=== PATIENT | female | born 1950 | race Caucasian/White ===

== ENCOUNTER 2019-08-10 09:10 | Observation (INO) | payer MEDICARE, OTHER ==
[2019-08-10 09:42] LABS: #Basophils 0.1 thou/uL (0.0-0.2); #Eosinphils 0.1 thou/uL (0.0-0.7); #Lymphocytes 2.3 thou/uL (1.20-3.40); #Monocytes 0.9 thou/uL (0.11-0.59); %Basophils 0.3 % (0.0-1.0); %Eosinophils 0.9 % (0.0-10.0); %Lymphocytes 15.1 % (21.0-51.0); %Neutrophils 77.7 % (42.0-75.0); Hemoglobin 14.6 g/dL (12.0-16.0); Mean Corpuscular HGB CONC 32.4 g/dL (32.0-36.0); Mean Corpuscular Volume 89.3 fL (78.0-98.0); Mean Platelet Volume 7.5 fL (7.4-10.4); Platelet Count 321 thou/uL (130-400); Red Blood Cell (RBC) Count 5.04 mill/uL (4.20-5.40); White Blood Cell (WBC) Count 15.4 thou/uL (4.8-10.8)
[2019-08-10 09:47] LABS: INR-International Normal Ratio 0.9; Prothrombin Time 12.6 SEC (12.0-14.7)
[2019-08-10 09:53] LABS: ALT (SGPT) 22 U/L (8-55); AST (SGOT) 22 U/L (5-34); Albumin 4.1 g/dL (3.4-4.8); Alkaline Phosphatase 79 U/L (40-110); Anion Gap 15 mmol/L (10-20); BUN (Urea Nitrogen) 15 mg/dL (9.8-20.1); Bilirubin, Total 1.4 mg/dL (0.2-1.2); CK (CPK) 84 U/L (29-168); Calc. Creatinine Clearance 0 mL/min (70-130); Calcium 9.3 mg/dL (7.8-10.44); Carbon Dioxide 23 mmol/L (23-31); Chloride 106 mmol/L (98-107); Estimated GFR-MDRD 73; Globulin 3.1 g/dL (2.4-3.5); Glucose 172 mg/dL (80-115); PTT 22.4 SEC (22.9-36.1); Potassium 3.7 mmol/L (3.5-5.1); Protein, Total 7.2 g/dL (6.0-8.3); Sodium 140 mmol/L (136-145)
--- NOTE | 2019-08-10 10:11 | RAD ---
EXAM: Single view of the chest HISTORY: Altered mental status COMPARISON: 03/29/2017 FINDINGS: Single view of the chest shows a normal sized cardiomediastinal silhouette. There is no aviva dence of consolidation, mass, or pleural effusion. Degenerative changes are seen in the spine and shoulders. IMPRESSION: No evidence of acute cardiopulmonary disease
--- NOTE | 2019-08-10 10:12 | CT ---
CT BRAIN WITHOUT CONTRAST: HISTORY: Level II stroke alert. Right sided weakness which has resolved. COMPARISON: 03/29/2017 FINDINGS: Changes of cortical atrophy, chronic small vessel ischemic disease, encephalomalacia/old infarction i n the left posterior parietal lobe are again seen. The ventricular size is stable and the basilar cis terns are patent. No evidence of acute infarct, hemorrhage, midline shift or abnormal extraaxial fluid collection is se en. The bony calvarium is intact. The visualized paranasal sinuses and mastoid air cells are well aer ated. IMPRESSION: No CT evidence of acute intracranial process. Discussed over the telephone with ER physician Dr. Chaz Tafoya at 9:36 a.m. CODE [place] POS: [facility]
--- NOTE | 2019-08-10 10:15 | CT ---
Exam: CTA neck with contrast CTA head with contrast HISTORY: Stroke that is subsequently resolved with right-sided weakness COMPARISON: None TECHNIQUE: 1. Multiple contiguous axial images were obtained and a CTA of the neck with contrast. 3-D sagittal a nd coronal MIP reformats were performed. 2. Multiple contiguous axial images were obtained and a CTA of the head with contrast. 3-D sagittal a nd coronal MIP reformats were performed. FINDINGS: CTA NECK: Aortic arch: Normal origin of the carotid arteries from the arch. No significant atherosclerotic dise ase of the subclavian arteries. Right common carotid artery: No significant atherosclerotic disease or narrowing Left common carotid artery: No significant atherosclerotic disease or narrowing Right internal carotid artery: No significant atherosclerotic disease or narrowing per NASCET criteri a. Tortuous cervical ICA. Right external carotid artery: No significant atherosclerotic disease or narrowing Left internal carotid artery: No significant atherosclerotic disease or narrowing per NASCET criteri a Left external carotid artery: No significant atherosclerotic disease or narrowing Right cervical vertebral artery: No significant atherosclerotic disease or narrowing Left cervical vertebral artery: No significant atherosclerotic disease or narrowing No cervical adenopathy. The lung apices are unremarkable. Degenerative changes are seen in the spine. CTA HEAD: Right intracranial internal carotid artery: Patent without narrowing or occlusion Right anterior cerebral artery: Patent without narrowing or occlusion Right middle cerebral artery: Patent without narrowing or occlusion Left intracranial internal carotid artery: Patent without narrowing or occlusion Left anterior cerebral artery: Patent without narrowing or occlusion Left middle cerebral artery: Patent without narrowing or occlusion No aneurysmal dilatation is seen in the anterior circulation. Right vertebral artery: Patent without narrowing or occlusion Left vertebral artery: Patent without narrowing or occlusion Basilar artery: Patent without narrowing or occlusion The posterior cerebral arteries and cerebellar arteries are patent without narrowing or occlusion. No aneurysmal dilatation is seen in the posterior circulation. IMPRESSION: 1. No significant CTA abnormality of the neck 2. No significant CTA abnormality of the head
[2019-08-10] MEDS ORDERED: Iopamidol-370 76% 500 ML 1 ML ONE (11:42)
[2019-08-10 12:35] LABS: Bilirubin Negative (Negative); Blood, Urine Negative (Negative); Clarity Clear (Clear); Glucose, Urine (Dipstick) 500 mg/dL (Negative); Leukocyte Negative Leu/uL (Negative); Nitrite Negative (Negative); Protein, Urine (Dipstick) Negative (Neg-Trace)
[2019-08-10 13:45] VITALS: BMI 30.5
[2019-08-10] MEDS ORDERED: Dextrose 5% in Water 1,000 ML IV PRN (15:42)
[2019-08-10] MEDS ORDERED: Dextrose 50% Abboject 50 ML SYRINGE SLOW IVP PRN (15:42)
[2019-08-10] MEDS ORDERED: Clotrimazole 1 % Cream 30 GM TUBE TOP PRN (15:57)
[2019-08-10] MEDS: HumaLOG 300 UNITS/3 ML VIAL SC SCH (20:53)
[2019-08-10] MEDS: Atorvastatin Calcium 40 MG TAB PO SCH (20:53)
[2019-08-10] MEDS ORDERED: Insulin Glargine 5 UNITS in Pre-Filled Syringe 1 EACH SC SCH (21:00)
--- NOTE | 2019-08-10 22:56 | HP ---
CHIEF COMPLAINT: Confusion and slurred speech with some weakness of the right side. HISTORY OF PRESENT ILLNESS: The patient is a 69-year-old female, who was brought to the emergency room for evaluation after she had an episode of confusion, slurred speech, and unable to lift her left arm. Apparently, her speech was incoherent last night and this morning she was worse. Family decided to bring her to the emergency room for further evaluation. Apparently, she had a stroke two years ago and she was hospitalized in this hospital. She did not have any other complaints. No chest pain. No shortness of breath. She did not have any headache. PAST MEDICAL HISTORY: Positive for; 1. Diabetes mellitus, type 2. 2. Gastroesophageal reflux disease. 3. Hyperlipidemia. 4. Hypertension. 5. History of CVA. 6. Asthma/chronic obstructive pulmonary disease. SURGICAL HISTORY: 1. Tubal ligation. 2. Cholecystectomy. 3. Staphylococcus infection of the left buttock. PSYCHIATRIC HISTORY: 1. Anxiety. 2. Depression. 3. Seizure disorder. SOCIAL HISTORY: She denies any alcohol intake, cigarette smoking, or illicit drug use. FAMILY HISTORY: Unknown. Does not know much about grandparents. ALLERGIES: ASPIRIN AND PENICILLIN. CURRENT MEDICATIONS: Patient's family went home to get medicine. REVIEW OF SYSTEMS: Positive for bilateral knee pain. Negative for all symptoms and all 14 systems reviewed with the family. PHYSICAL EXAMINATION: GENERAL: She is not in any distress during my visit. VITAL SIGNS: Her blood pressure is 157/85, pulse is 80, temperature is 99.4, respirations 18, and O2 saturation is 98%. HEENT: Head is atraumatic and normocephalic. Eyes are PERRLA. Sclerae are nonicteric. Oral mucosa is moist. NECK: Supple. LUNGS: Clear. HEART: S1, S2 normal. There is a systolic murmur mostly audible over the left sternal border, 3/6. ABDOMEN: Soft, nontender, and nondistended. Bowel sounds are present. No organomegaly. EXTREMITIES: No clubbing, cyanosis, or edema. NEUROLOGICAL EXAMINATION: She follows my commands. She moves all 4 extremities. Her speech is normal. She does not have any facial droop. She knows that she is in the hospital, but that is all she knows. She is not oriented to anything else. LABORATORY DATA: White count of 15.4, hemoglobin 14.6, hematocrit 45.0, and platelet count is 321,000. Chemistry showed normal electrolytes, normal BUN, normal creatinine, elevated glucose at 172, calcium 9.3, and total bilirubin 1.3. The rest of chemistry within normal limits. Troponin I less than 0.010. Urinalysis showed specific gravity of 1.054, 500 of glucose, and 2.0 of urobilinogen. Normal PT and INR. APTT 22.4, which is low. IMAGES: Personally reviewed by me. Chest x-ray did not show any acute abnormalities. The CT of the brain showed chronic microvascular changes along with encephalomalacia/old infarction in the left posteroparietal lobe. CT angiogram of the [place] showed no significant CTA abnormality of the neck and no significant CTA abnormality of the head. This was personally reviewed by me too. Electrocardiogram showed normal sinus rhythm with voltage criteria for LVH and some flipped T-waves in V4, V5, and V6 along with some V3 flipped T-waves. IMPRESSION: 1. Transient ischemic attack, most slightly. The patient is back to her baseline. Her speech and motor function are back to her baseline. 2. Diabetes mellitus, not controlled. 3. Hypertension. 4. Seizure disorder. 5. Chronic obstructive pulmonary disease/asthma. 6. History of methicillin-resistant Staphylococcus aureus bacteremia. 7. Anxiety and depression. 8. Dementia. 9. Gastroesophageal reflux disease. PLAN: Admission for observation. Condition is fair. Full code. Activity, bedrest, and bathroom privileges with assistance. IV Hep-Lock. Plavix 75 mg once a day. DVT prophylaxis with SCDs. Echocardiogram and Accu-Cheks a.c. and at bedtime and mild sliding scale. We will identify her home medications. We will reconcile as soon as this is available. We will get PT and OT involved and apparently family is asking for evaluation of her status and possible placement at the halfway since they are not able to care for her any longer. Job ID: [id number]
[2019-08-11 05:10] LABS: #Basophils 0.1 thou/uL (0.0-0.2); #Eosinphils 0.2 thou/uL (0.0-0.7); #Lymphocytes 4.4 thou/uL (1.20-3.40); #Neutrophils 7.6 thou/uL (1.40-6.50); %Basophils 0.8 % (0.0-1.0); %Eosinophils 1.6 % (0.0-10.0); %Lymphocytes 33.3 % (21.0-51.0); %Monocytes 7.4 % (0.0-10.0); %Neutrophils 56.9 % (42.0-75.0); Mean Corpuscular HGB CONC 33.3 g/dL (32.0-36.0); Mean Corpuscular Hemoglobin 29.4 pg (27.0-31.0); Mean Corpuscular Volume 88.4 fL (78.0-98.0); Mean Platelet Volume 8.1 fL (7.4-10.4); Platelet Count 314 thou/uL (130-400); RBC Distribution Width 11.9 % (11.5-14.5); Red Blood Cell (RBC) Count 4.77 mill/uL (4.20-5.40); White Blood Cell (WBC) Count 13.3 thou/uL (4.8-10.8)
[2019-08-11 05:21] LABS: Anion Gap 14 mmol/L (10-20); BUN (Urea Nitrogen) 13 mg/dL (9.8-20.1); Calc. Creatinine Clearance 75 mL/min (70-130); Calcium 9.6 mg/dL (7.8-10.44); Carbon Dioxide 24 mmol/L (23-31); Chloride 104 mmol/L (98-107); Estimated GFR-MDRD 73; Glucose 296 mg/dL (80-115); Potassium 3.8 mmol/L (3.5-5.1); Sodium 138 mmol/L (136-145)
[2019-08-11] MEDS: HumaLOG 300 UNITS/3 ML VIAL SC PRN ×3 (06:27→18:14)
[2019-08-11] MEDS: Clopidogrel Bisulfate 75 MG TAB PO SCH (08:52)
[2019-08-11] MEDS: Insulin Glargine 10 UNITS in Pre-Filled Syringe 1 EACH SC SCH (08:53)
[2019-08-11] MEDS: HumaLOG 300 UNITS/3 ML VIAL SC SCH ×2 (08:53→20:27)
[2019-08-11] MEDS ORDERED: Non-Formulary Item 1 EACH (Insulin Glargine,Hum.Rec.Anlog [Toujeo Solostar] 10 UNIT) SQ SCH (09:00)
--- NOTE | 2019-08-11 10:57 | PRG ---
DATE OF SERVICE: 08/11/2019 SUBJECTIVE: The patient is seen and examined at bedside. The family is present in the room during my visit. She is doing significantly better. She is very talkative this morning. She starts joking around. OBJECTIVE: VITAL SIGNS: Blood pressure is 145/63, pulse is 85, temperature is 98.8, respiratory rate is 12, and O2 saturation is 96% on room air. HEENT: Her pupils are reactive to light properly. Sclerae are nonicteric. Oral mucosa is moist. NECK: Supple. LUNGS: Clear. HEART: S1 and S2 normal. There is a systolic murmur 3/6 at the sternal border. ABDOMEN: Soft, obese, and nontender. EXTREMITIES: No clubbing, cyanosis, or edema. NEUROLOGIC: She follows my commands. She moves all 4 extremities. There is no any speech problem. LABORATORY DATA: Labs showed white count of 13.3, hemoglobin of 14.0, hematocrit 42.2, and platelet count is 314. Glycemia is ranging from 167 to 322. Urinalysis showed specific gravity of 1.054, 500 of glucose, and 2 of urobilinogen. Echocardiogram showed LVEF estimated at 55% to 60%, normal right ventricle, normal left and right atrium. No evidence of mitral valve stenosis. No evidence of any pericardial infusion. IMPRESSION: 1. Transient ischemic attack, resolved. The patient is back to her normal functional status. She does not have any speech disturbance or focal deficits. We will continue Plavix. We will continue PT. We will continue statin. 2. Diabetes mellitus, not controlled. We will increase the intensity of our management. Continue before meals and at bedtime Accu-Cheks. 3. Hypertension. 4. Seizure disorder, chronic, nonactive. 5. Chronic obstructive pulmonary disease/asthma. 6. History of methicillin-resistant Staphylococcus aureus bacteremia. 7. Anxiety and depression. 8. Dementia. 9. Gastroesophageal reflux disease. PLAN: Plan is to continue her Plavix 75 mg once a day. Continue statin. Her echocardiogram came back within normal limits. She does not have any blockages in her carotid system. We will continue PT and OT and try to place her since the family is not able to care for her at home anymore. Job ID: [id number]
[2019-08-11] MEDS: metFORMIN 500 MG TAB PO SCH (18:14)
[2019-08-11] MEDS: Atorvastatin Calcium 40 MG TAB PO SCH (20:27)
[2019-08-12] MEDS: HumaLOG 300 UNITS/3 ML VIAL SC PRN ×3 (06:30→17:35)
[2019-08-12] MEDS: Clopidogrel Bisulfate 75 MG TAB PO SCH (09:05)
[2019-08-12] MEDS: metFORMIN 500 MG TAB PO SCH ×2 (09:05→17:28)
[2019-08-12] MEDS: HumaLOG 300 UNITS/3 ML VIAL SC SCH ×2 (09:05→20:02)
[2019-08-12] MEDS: Insulin Glargine 10 UNITS in Pre-Filled Syringe 1 EACH SC SCH (09:07)
--- NOTE | 2019-08-12 11:30 | PRG ---
DATE OF SERVICE: 08/12/2019 SUBJECTIVE: The patient is seen and examined at the bedside. She does not have much complaints to offer. She is able to eat, but she does not like the food in the hospital. Her speech seems to be back to normal. OBJECTIVE: VITAL SIGNS: Blood pressure is 130/60, pulse is 76, respiratory rate is 20, O2 saturation is 94% on room air, temperature is 98.6. HEENT: Her pupils are responding to light properly. Sclerae are nonicteric. Oral mucosa is moist. NECK: Supple. LUNGS: Clear. HEART: S1 and S2, normal. No S3. No S4. ABDOMEN: Soft, nontender, nondistended. EXTREMITIES: No clubbing, cyanosis, or edema. NEUROLOGIC: She follows my commands. She has some dementia. She moves all her extremities. LABORATORY DATA: Glycemia is ranging from 166 to 288. IMPRESSION: 1. Transient ischemic attack, resolved. According to the family, she is back to her baseline. We will continue her Plavix since she is allergic to aspirin. We will continue PT and OT and we will continue statin. 2. Diabetes mellitus. The patient was started on her metformin yesterday, so I anticipate to see improvement in her glycemic control. 3. Hypertension. 4. Seizure disorder, chronic, nonactive. 5. Chronic obstructive pulmonary disease/asthma, chronic, nonactive. 6. History of methicillin-resistant Staphylococcus aureus bacteremia. 7. Anxiety and depression. 8. Dementia. 9. Gastroesophageal reflux disease. DISCUSSION: The plan is to continue her Plavix and statin. She will be screen for care home facility for PT and OT on Tuesday and the family is not able to take care of her at home and she will be placed. Job ID: [id number]
[2019-08-12] MEDS: Acetaminophen 325 MG TAB PO PRN (20:01)
[2019-08-12] MEDS: Atorvastatin Calcium 40 MG TAB PO SCH (20:01)
[2019-08-13] MEDS: HumaLOG 300 UNITS/3 ML VIAL SC PRN ×3 (06:10→17:19)
[2019-08-13] MEDS: HumaLOG 300 UNITS/3 ML VIAL SC SCH ×2 (08:51→20:31)
[2019-08-13] MEDS: metFORMIN 500 MG TAB PO SCH ×2 (08:51→17:20)
[2019-08-13] MEDS: Clopidogrel Bisulfate 75 MG TAB PO SCH (08:51)
[2019-08-13] MEDS: Insulin Glargine 10 UNITS in Pre-Filled Syringe 1 EACH SC SCH (08:51)
[2019-08-13 09:41] LABS: Hemoglobin A1c 8.3 % (4.0-6.0)
[2019-08-13 09:50] LABS: Anion Gap 16 mmol/L (10-20); BUN (Urea Nitrogen) 19 mg/dL (9.8-20.1); Calc. Creatinine Clearance 66 mL/min (70-130); Calcium 9.3 mg/dL (7.8-10.44); Carbon Dioxide 18 mmol/L (23-31); Chloride 104 mmol/L (98-107); Estimated GFR-MDRD 62; Glucose 370 mg/dL (80-115); Potassium 4.3 mmol/L (3.5-5.1); Sodium 134 mmol/L (136-145)
--- NOTE | 2019-08-13 16:59 | PDOC.HOSPP ---
- Subjective Encounter Date: 08/13/19 Encounter Time: 10:57 Subjective: 69 y/o female with dementia, seizure disorder, prior CVa, DM, COPD and HTN amongst others admitted with acute onset of confusion and slurred associated with upper arm weakness which soon resolved and patient is back to baseline. Patient want patient placed in an jail as they are unable to care for her. Awaiting insurance approval. - Objective Vital Signs & Weight: Vital Signs (12 hours) Temp Pulse Pulse Pulse Resp BP BP 08/13/19 15:36 98.6 F 76 17 08/13/19 13:45 87 87 155/88 H 128/70 08/13/19 11:49 98.7 F 80 16 08/13/19 09:57 87 88 126/75 141/77 H 08/13/19 07:45 98.9 F 93 17 BP Pulse Ox 08/13/19 15:36 130/70 94 L 08/13/19 13:45 08/13/19 11:49 132/77 96 08/13/19 09:57 08/13/19 07:45 128/76 95 Weight Weight 151 lb 4 oz I&O: 08/12/19 08/13/19 08/14/19 06:59 06:59 06:59 Intake Total 900 1200 Balance 900 1200 Result Diagrams: 08/11/19 04:40 08/13/19 09:06 Additional Labs: Accuchecks 08/13/19 08/13/19 08/12/19 10:40 05:56 19:28 POC Glucose 219 H 319 H 214 H 08/12/19 17:33 POC Glucose 259 H Hospitalist ROS - Medication Medications: Active Medications Generic Name Dose Route Start Last Admin Trade Name Freq PRN Reason Stop Dose Admin Acetaminophen 650 mg 08/10/19 15:38 08/12/19 20:01 Tylenol PO 650 mg Q4H PRN Administration Headache/Fever/Mild Pain (1-3) Atorvastatin Calcium 40 mg 08/10/19 21:00 08/12/19 20:01 Lipitor PO 40 mg HS ELOISE Administration Clopidogrel Bisulfate 75 mg 08/11/19 09:00 08/13/19 08:51 Plavix PO 75 mg DAILY ELOISE Administration Insulin Glargine 10 units/ 0.1 mls @ 0 mls/hr 08/11/19 09:00 08/13/19 08:51 Miscellaneous Medication SC 0.1 mls DAILY ELOISE Administration As Directed Insulin Human Lispro 0 units 08/10/19 15:42 08/13/19 11:04 Humalog SC 3 unit .MILD SLIDING SCALE PRN Administration Mild Correctional Scale Insulin Human Lispro 5 units 08/10/19 21:00 08/13/19 08:51 Humalog SC 5 unit BID ELOISE Administration Metformin HCl 500 mg 08/11/19 17:00 08/13/19 08:51 Glucophage PO 500 mg BID-WM ELOISE Administration - Exam General Appearance: awake alert Eye: anicteric sclera ENT: normocephalic atraumatic Neck: symmetric, no JVD Heart: RRR Respiratory: no wheezes, no ronchi, normal chest expansion Gastrointestinal: soft, non-tender, non-distended, normal bowel sounds Extremities: 1+ LE edema Neurological: cranial nerve grossly intact, no new deficit Musculoskeletal: generalized weakness Psychiatric: normal affect, A&O x 3 Hosp A/P (1) TIA (transient ischemic attack) Status: Suspected (2) HTN (hypertension) Code(s): I10 - ESSENTIAL (PRIMARY) HYPERTENSION Status: Acute (3) GERD (gastroesophageal reflux disease) Code(s): K21.9 - GASTRO-ESOPHAGEAL REFLUX DISEASE WITHOUT ESOPHAGITIS Status: Acute (4) COPD (chronic obstructive pulmonary disease) Status: Acute (5) Dementia Code(s): F03.90 - UNSPECIFIED DEMENTIA WITHOUT BEHAVIORAL DISTURBANCE Status: Acute (6) Diabetes mellitus type 2 Code(s): E11.9 - TYPE 2 DIABETES MELLITUS WITHOUT COMPLICATIONS Status: Chronic (7) Seizure disorder Code(s): G40.909 - EPILEPSY, UNSP, NOT INTRACTABLE, WITHOUT STATUS EPILEPTICUS Status: Chronic (8) Physical deconditioning Code(s): R53.81 - OTHER MALAISE Status: Acute (9) Metabolic acidosis Code(s): E87.2 - ACIDOSIS Status: Acute (10) Hyponatremia Code(s): E87.1 - HYPO-OSMOLALITY AND HYPONATREMIA Status: Acute - Plan Increase lantus to 20 units daily PT/OT to continue Continue statin and plavix. get repeat CBC and BMP in the am.
[2019-08-13] MEDS: Acetaminophen 325 MG TAB PO PRN (17:19)
[2019-08-13] MEDS: Atorvastatin Calcium 40 MG TAB PO SCH (20:30)
[2019-08-14 05:16] LABS: #Eosinphils 0.3 thou/uL (0.0-0.7); #Lymphocytes 3.6 thou/uL (1.20-3.40); #Neutrophils 9.5 thou/uL (1.40-6.50); %Basophils 0.3 % (0.0-1.0); %Eosinophils 2.1 % (0.0-10.0); %Lymphocytes 25.2 % (21.0-51.0); %Monocytes 7.2 % (0.0-10.0); %Neutrophils 65.3 % (42.0-75.0); Hemoglobin 15.1 g/dL (12.0-16.0); Mean Corpuscular HGB CONC 32.6 g/dL (32.0-36.0); Mean Corpuscular Hemoglobin 29.4 pg (27.0-31.0); Mean Corpuscular Volume 90.2 fL (78.0-98.0); Mean Platelet Volume 7.8 fL (7.4-10.4); Platelet Count 327 thou/uL (130-400); RBC Distribution Width 12.2 % (11.5-14.5); Red Blood Cell (RBC) Count 5.11 mill/uL (4.20-5.40); White Blood Cell (WBC) Count 14.5 thou/uL (4.8-10.8)
[2019-08-14 05:40] LABS: Albumin 3.6 g/dL (3.4-4.8); Anion Gap 13 mmol/L (10-20); BUN (Urea Nitrogen) 23 mg/dL (9.8-20.1); Calc. Creatinine Clearance 73 mL/min (70-130); Calcium 9.3 mg/dL (7.8-10.44); Carbon Dioxide 25 mmol/L (23-31); Chloride 104 mmol/L (98-107); Estimated GFR-MDRD 71; Glucose 221 mg/dL (80-115); Phosphorus 4.1 mg/dL (2.3-4.7); Potassium 4.1 mmol/L (3.5-5.1); Sodium 138 mmol/L (136-145)
[2019-08-14] MEDS: HumaLOG 300 UNITS/3 ML VIAL SC PRN ×3 (06:07→17:25)
[2019-08-14] MEDS: Clopidogrel Bisulfate 75 MG TAB PO SCH (08:28)
[2019-08-14] MEDS: metFORMIN 500 MG TAB PO SCH ×2 (08:29→16:34)
[2019-08-14] MEDS: Acetaminophen 325 MG TAB PO PRN (08:30)
[2019-08-14] MEDS: HumaLOG 300 UNITS/3 ML VIAL SC SCH ×2 (08:31→20:29)
[2019-08-14] MEDS: Insulin Glargine 20 UNITS in Pre-Filled Syringe 1 EACH SC SCH (08:32)
--- NOTE | 2019-08-14 11:29 | PDOC.HOSPP ---
- Subjective non-verbal Subjective: feeling well, she has no complaints, she knows that she is in the hospital but does not know the year. - Objective Vital Signs & Weight: Vital Signs (12 hours) Temp Pulse Resp BP Pulse Ox 08/14/19 07:29 99.6 F 81 20 129/70 93 L 08/14/19 04:00 99.1 F 89 22 H 128/62 94 L 08/14/19 00:00 99.6 F 102 H 15 142/65 H 94 L Weight Weight 151 lb 4 oz I&O: 08/13/19 08/14/19 08/15/19 06:59 06:59 06:59 Intake Total 1200 1360 Output Total 750 Balance 1200 610 Result Diagrams: 08/14/19 04:58 08/14/19 04:58 Additional Labs: Accuchecks 08/14/19 08/14/19 08/13/19 10:34 05:43 20:33 POC Glucose 256 H 213 H 259 H 08/13/19 16:35 POC Glucose 186 H Hospitalist ROS - Medication Medications: Active Medications Generic Name Dose Route Start Last Admin Trade Name Freq PRN Reason Stop Dose Admin Acetaminophen 650 mg 08/10/19 15:38 08/14/19 08:30 Tylenol PO 650 mg Q4H PRN Administration Headache/Fever/Mild Pain (1-3) Atorvastatin Calcium 40 mg 08/10/19 21:00 08/13/19 20:30 Lipitor PO 40 mg HS ELOISE Administration Clopidogrel Bisulfate 75 mg 08/11/19 09:00 08/14/19 08:28 Plavix PO 75 mg DAILY ELOISE Administration Insulin Glargine 20 units/ 0.2 mls @ 0 mls/hr 08/13/19 17:05 08/14/19 08:32 Miscellaneous Medication SC 0.2 mls DAILY ELOISE Administration As Directed Insulin Human Lispro 0 units 08/10/19 15:42 08/14/19 11:12 Humalog SC 4 unit .MILD SLIDING SCALE PRN Administration Mild Correctional Scale Insulin Human Lispro 5 units 08/10/19 21:00 08/14/19 08:31 Humalog SC 5 unit BID ELOISE Administration Metformin HCl 500 mg 08/11/19 17:00 08/14/19 08:29 Glucophage PO 500 mg BID-WM ELOISE Administration - Exam General Appearance: awake alert Eye: PERRL ENT: normocephalic atraumatic Respiratory: no wheezes, no rales Gastrointestinal: non-tender, non-distended, normal bowel sounds, no palpable masses Extremities: no cyanosis, no clubbing Neurological: cranial nerve grossly intact Musculoskeletal: normal tone Psychiatric: normal affect Hosp A/P - Plan (1) TIA (transient ischemic attack) Status: Suspected (2) HTN (hypertension) Code(s): I10 - ESSENTIAL (PRIMARY) HYPERTENSION Status: Acute (3) GERD (gastroesophageal reflux disease) Code(s): K21.9 - GASTRO-ESOPHAGEAL REFLUX DISEASE WITHOUT ESOPHAGITIS Status: Acute (4) COPD (chronic obstructive pulmonary disease) Status: Acute (5) Dementia Code(s): F03.90 - UNSPECIFIED DEMENTIA WITHOUT BEHAVIORAL DISTURBANCE Status: Acute (6) Diabetes mellitus type 2 Code(s): E11.9 - TYPE 2 DIABETES MELLITUS WITHOUT COMPLICATIONS Status: Chronic (7) Seizure disorder Code(s): G40.909 - EPILEPSY, UNSP, NOT INTRACTABLE, WITHOUT STATUS EPILEPTICUS Status: Chronic (8) Physical deconditioning Code(s): R53.81 - OTHER MALAISE Status: Acute (9) Metabolic acidosis Code(s): E87.2 - ACIDOSIS Status: Acute (10) Hyponatremia Code(s): E87.1 - HYPO-OSMOLALITY AND HYPONATREMIA Status: Acute - Plan 08/13 Increase lantus to 20 units daily PT/OT to continue Continue statin and plavix. get repeat CBC and BMP in the am. plan for 08/14 doing well, wbc elevated but no evidence of infection. will continue same management.
[2019-08-14] MEDS: Atorvastatin Calcium 40 MG TAB PO SCH (20:28)
[2019-08-15] MEDS: HumaLOG 300 UNITS/3 ML VIAL SC PRN ×2 (06:29→11:36)
[2019-08-15] MEDS: Insulin Glargine 20 UNITS in Pre-Filled Syringe 1 EACH SC SCH (09:19)
[2019-08-15] MEDS: metFORMIN 500 MG TAB PO SCH ×2 (09:19→17:07)
[2019-08-15] MEDS: HumaLOG 300 UNITS/3 ML VIAL SC SCH (09:19)
[2019-08-15] MEDS: Clopidogrel Bisulfate 75 MG TAB PO SCH (09:20)
--- NOTE | 2019-08-15 12:39 | PDOC.HOSPP ---
- Subjective Subjective: pleasantly confused, in no apparent distress. - Objective Vital Signs & Weight: Vital Signs (12 hours) Temp Pulse Resp BP Pulse Ox 08/15/19 11:42 99 F 86 16 136/81 97 08/15/19 08:00 99.2 F 80 16 135/75 97 08/15/19 03:36 99 F 90 16 150/80 H 92 L Weight Weight 151 lb 4 oz I&O: 08/14/19 08/15/19 08/16/19 06:59 06:59 06:59 Intake Total 1360 240 Output Total 750 1475 Balance 610 -1475 240 Result Diagrams: 08/14/19 04:58 08/14/19 04:58 Additional Labs: Accuchecks 08/15/19 08/15/19 08/14/19 10:34 05:52 19:53 POC Glucose 244 H 204 H 182 H 08/14/19 16:34 POC Glucose 175 H Hospitalist ROS - Medication Medications: Active Medications Generic Name Dose Route Start Last Admin Trade Name Freq PRN Reason Stop Dose Admin Acetaminophen 650 mg 08/10/19 15:38 08/14/19 08:30 Tylenol PO 650 mg Q4H PRN Administration Headache/Fever/Mild Pain (1-3) Atorvastatin Calcium 40 mg 08/10/19 21:00 08/14/19 20:28 Lipitor PO 40 mg HS ELOISE Administration Clopidogrel Bisulfate 75 mg 08/11/19 09:00 08/15/19 09:20 Plavix PO 75 mg DAILY ELOISE Administration Insulin Human Lispro 0 units 08/10/19 15:42 08/15/19 11:36 Humalog SC 3 unit .MILD SLIDING SCALE PRN Administration Mild Correctional Scale Insulin Human Lispro 5 units 08/10/19 21:00 08/15/19 09:19 Humalog SC 5 unit BID ELOISE Administration Metformin HCl 500 mg 08/11/19 17:00 08/15/19 09:19 Glucophage PO 500 mg BID-WM ELOISE Administration - Exam General Appearance: NAD Eye: PERRL ENT: normocephalic atraumatic Neck: supple Heart: RRR Respiratory: no wheezes Gastrointestinal: soft Neurological: cranial nerve grossly intact, no weakness Hosp A/P - Plan (1) TIA (transient ischemic attack) Status: Suspected (2) HTN (hypertension) Code(s): I10 - ESSENTIAL (PRIMARY) HYPERTENSION Status: Acute (3) GERD (gastroesophageal reflux disease) Code(s): K21.9 - GASTRO-ESOPHAGEAL REFLUX DISEASE WITHOUT ESOPHAGITIS Status: Acute (4) COPD (chronic obstructive pulmonary disease) Status: Acute (5) Dementia Code(s): F03.90 - UNSPECIFIED DEMENTIA WITHOUT BEHAVIORAL DISTURBANCE Status: Acute (6) Diabetes mellitus type 2 Code(s): E11.9 - TYPE 2 DIABETES MELLITUS WITHOUT COMPLICATIONS Status: Chronic (7) Seizure disorder Code(s): G40.909 - EPILEPSY, UNSP, NOT INTRACTABLE, WITHOUT STATUS EPILEPTICUS Status: Chronic (8) Physical deconditioning Code(s): R53.81 - OTHER MALAISE Status: Acute (9) Metabolic acidosis Code(s): E87.2 - ACIDOSIS Status: Acute (10) Hyponatremia Code(s): E87.1 - HYPO-OSMOLALITY AND HYPONATREMIA Status: Acute - Plan 08/13 Increase lantus to 20 units daily PT/OT to continue Continue statin and plavix. get repeat CBC and BMP in the am. plan for 08/14 doing well, wbc elevated but no evidence of infection. will continue same management. plan for today 08/15 will recheck labs in am will increase long acting insulin to 25 units as her glycemia is still not well controlled.
[2019-08-15 16:05] VITALS: BP 127/78; TEMP 99.4
--- NOTE | 2019-08-16 06:01 | DIS ---
DATE OF ADMISSION: 08/10/2019 DATE OF DISCHARGE: 08/15/2019 DISCHARGE DIAGNOSES: 1. Transient ischemic attack. 2. Diabetes type 2. 3. Gastroesophageal reflux disease. 4. High cholesterol. 5. High blood pressure. 6. Stroke. 7. Asthma. 8. Elevated white blood count. HISTORY OF PRESENT ILLNESS AND HOSPITAL COURSE: This is a 69-year-old female patient, who was brought to the emergency room because she had an episode of confusion and slurred speech. She was not able to lift her left arm. She was reported to have incoherent speech. Family wanted her to be evaluated, the patient does have history of stroke that occurred a year ago. In the hospital, the patient was back to her baseline. She did undergo a workup for possible stroke/TIA. Her CTA did not show any abnormality of the neck or head. Her brain CT did not show any evidence of acute intracranial process, her echocardiogram showed normal left ventricle and ejection fraction of 55% to 60%. During her stay, she did receive physical therapy. Her glucose was difficult to control and she was on long-acting insulin that needs to be increased, her WBCs were elevated, but she did not have a temperature and she did not look toxic. DISCHARGE MEDICATIONS: 1. Atorvastatin 40 mg once a day. 2. Plavix 70 mg once a day. 3. Lantus 25 units subcutaneously per day. 4. Humalog 5 units subcutaneously twice a day. 5. Metformin 500 p.o. b.i.d. RECOMMENDATIONS: The patient should have a repeat CBC in couple of days. The patient should follow up with primary care physician in 1 week. TIME SPENT: More than half an hour was spent to discharge the patient. Job ID: [id number]
[2019-08-16] MEDS ORDERED: Insulin Glargine 25 UNITS in Pre-Filled Syringe 1 EACH SC SCH (09:00)
== END 2019-08-15 18:47 ==
LOC: ERS 09:10 → 2SE 12:24
PROVIDERS: ADMIT Internal Medicine; ATTEND Internal Medicine
DX: G45.9 Transient cerebral ischemic attack, unspecified (principal); E11.9 Type 2 diabetes mellitus without complications; E78.00 Pure hypercholesterolemia, unspecified; I10 Essential (primary) hypertension; K21.9 Gastro-esophageal reflux disease without esophagitis; D72.829 Elevated white blood cell count, unspecified; J44.9 Chronic obstructive pulmonary disease, unspecified; F03.90 Unspecified dementia, unspecified severity, without behavioral disturbance, psychotic disturbance, mood disturbance, and anxiety; F41.9 Anxiety disorder, unspecified; F32.9 Major depressive disorder, single episode, unspecified; G40.909 Epilepsy, unspecified, not intractable, without status epilepticus; Z79.4 Long term (current) use of insulin; Z79.899 Other long term (current) drug therapy; Z86.73 Personal history of transient ischemic attack (TIA), and cerebral infarction without residual deficits; Z88.0 Allergy status to penicillin; Z88.8 Allergy status to other drugs, medicaments and biological substances
CPT/HCPCS: 70450; 70496; 70498; 71045; 80048 ×2; 80053; 80069; 81003; 82550; 82962 ×6; 83036; 84484; 85025 ×3; 85610; 85730; 93005; 93306; 97116; 97139 ×6; 99285; G0378 ×7; 36415; 36416; J1815; Q9967

== ENCOUNTER 2020-06-16 05:19 | Emergency (ER) | payer MEDICARE, OTHER ==
[2020-06-16] MEDS ORDERED: Lorazepam 2 MG/ML VIAL ONE (05:32)
[2020-06-16] MEDS ORDERED: levETIRAcetam In NaCl (Iso-Os) 200 ML ONE (05:54)
[2020-06-16 06:08] LABS: #Basophils 0.1 thou/uL (0.0-0.2); #Eosinphils 0.4 thou/uL (0.0-0.7); #Monocytes 0.8 thou/uL (0.11-0.59); #Neutrophils 8.9 thou/uL (1.40-6.50); %Basophils 0.4 % (0.0-1.0); %Lymphocytes 28.4 % (21.0-51.0); %Monocytes 5.7 % (0.0-10.0); %Neutrophils 62.5 % (42.0-75.0); Hemoglobin 13.9 g/dL (12.0-16.0); Mean Corpuscular HGB CONC 32.9 g/dL (32.0-36.0); Mean Corpuscular Hemoglobin 29.7 pg (27.0-31.0); Mean Corpuscular Volume 90.3 fL (78.0-98.0); Mean Platelet Volume 7.5 fL (7.4-10.4); Platelet Count 316 thou/uL (130-400); RBC Distribution Width 12.7 % (11.5-14.5); Red Blood Cell (RBC) Count 4.68 mill/uL (4.20-5.40); White Blood Cell (WBC) Count 14.2 thou/uL (4.8-10.8)
[2020-06-16 06:28] LABS: ALT (SGPT) 13 U/L (8-55); AST (SGOT) 10 U/L (5-34); Albumin 3.8 g/dL (3.4-4.8); Alkaline Phosphatase 60 U/L (40-110); Anion Gap 20 mmol/L (10-20); BUN (Urea Nitrogen) 8 mg/dL (9.8-20.1); Bilirubin, Total 1.9 mg/dL (0.2-1.2); Calc. Creatinine Clearance 0 mL/min (70-130); Calcium 8.4 mg/dL (7.8-10.44); Carbon Dioxide 20 mmol/L (23-31); Chloride 105 mmol/L (98-107); Estimated GFR-MDRD 85; Globulin 2.4 g/dL (2.4-3.5); Glucose 237 mg/dL (80-115); Potassium 3.1 mmol/L (3.5-5.1); Protein, Total 6.2 g/dL (6.0-8.3); Sodium 142 mmol/L (136-145)
== END 2020-06-16 12:30 ==
LOC: ERS 05:19
DX: G40.909 Epilepsy, unspecified, not intractable, without status epilepticus (principal); F41.9 Anxiety disorder, unspecified; F32.9 Major depressive disorder, single episode, unspecified; K21.9 Gastro-esophageal reflux disease without esophagitis; E11.9 Type 2 diabetes mellitus without complications; Z79.4 Long term (current) use of insulin; E78.5 Hyperlipidemia, unspecified; E78.00 Pure hypercholesterolemia, unspecified; M19.90 Unspecified osteoarthritis, unspecified site; J44.9 Chronic obstructive pulmonary disease, unspecified; F03.90 Unspecified dementia, unspecified severity, without behavioral disturbance, psychotic disturbance, mood disturbance, and anxiety
CPT/HCPCS: 36415; 80053; 85025; 93005; 94760; 96365; 96372; J1953; J2060

== ENCOUNTER 2020-07-15 14:21 | Inpatient (IN) | payer MEDICARE, OTHER ==
[2020-07-15 15:51] LABS: Actual Bicarbonate (HCO3v) 26 mEq/L (22-28); Analyzer IN Cardio ER; Base Excess 1.9 mEq/L (-2.0 to +3.0); Calcium, Ionized (venous) 1.15 mmol/L (1.16-1.32); Chloride (VBG) 98 mmol/L (98-106); Potassium (VBG) 3.59 mmol/L (3.70-5.30); Sodium 134.7 mmol/L (133-146); pH (venous) 7.46 (7.32-7.43)
[2020-07-15] MEDS ORDERED: Senokot S 8.6-50 MG TAB PO PRN (15:58)
[2020-07-15] MEDS ORDERED: Acetaminophen 325 MG TAB PO PRN (15:58)
--- NOTE | 2020-07-15 16:18 | RAD ---
XR Chest 1 View Portable History: Dyspnea Comparison: Radiograph August 10, 2019 Findings: Abnormal lingular left lower lobe consolidation. Remainder the lungs are normal. No pneumot horax. Heart size mildly enlarged. Impression: Lingular and left lower lobe consolidation suggests pneumonia or aspiration.
[2020-07-15 16:27] LABS: #Monocytes 0.7 thou/uL (0.11-0.59); #Neutrophils 12.8 thou/uL (1.40-6.50); %Basophils 0.1 % (0.0-1.0); %Eosinophils 0.3 % (0.0-10.0); %Lymphocytes 6.6 % (21.0-51.0); %Monocytes 4.6 % (0.0-10.0); %Neutrophils 88.4 % (42.0-75.0); Hemoglobin 13.3 g/dL (12.0-16.0); Mean Corpuscular HGB CONC 32.5 g/dL (32.0-36.0); Mean Corpuscular Hemoglobin 28.9 pg (27.0-31.0); Mean Platelet Volume 9.3 fL (7.4-10.4); Platelet Count 252 thou/uL (130-400); Red Blood Cell (RBC) Count 4.58 mill/uL (4.20-5.40); White Blood Cell (WBC) Count 14.4 thou/uL (4.8-10.8)
[2020-07-15] MEDS ORDERED: Acetaminophen 500 MG TAB ONE (16:27)
[2020-07-15] MEDS ORDERED: Ondansetron PF 4 MG/2 ML Vial ONE (16:28)
[2020-07-15] MEDS ORDERED: Vancomycin 1 GM/200 ML BAG ONE (16:28)
[2020-07-15] MEDS ORDERED: Sodium Chloride 0.9% 100 ML ONE (16:28)
[2020-07-15] MEDS ORDERED: cefTRIAXone\\ROCEPHIN 2 GM VIAL ONE (16:28)
[2020-07-15 16:53] LABS: ALT (SGPT) 13 U/L (8-55); AST (SGOT) 40 U/L (5-34); Albumin 3.3 g/dL (3.4-4.8); Alkaline Phosphatase 58 U/L (40-110); Anion Gap 15 mmol/L (10-20); BUN (Urea Nitrogen) 42 mg/dL (9.8-20.1); Bilirubin, Total 2.5 mg/dL (0.2-1.2); Calc. Creatinine Clearance 0 mL/min (70-130); Calcium 9.1 mg/dL (7.8-10.44); Carbon Dioxide 25 mmol/L (23-31); Chloride 100 mmol/L (98-107); Estimated GFR-MDRD 70; Globulin 3.7 g/dL (2.4-3.5); Glucose 225 mg/dL (80-115); Potassium 3.4 mmol/L (3.5-5.1); Sodium 137 mmol/L (136-145)
[2020-07-15] MEDS ORDERED: Potassium Chloride 20 MEQ TAB PO SCH (17:30)
[2020-07-15] MEDS ORDERED: Dextrose 50% Abboject 50 ML SYRINGE SLOW IVP PRN (18:12)
[2020-07-15] MEDS ORDERED: Dextrose 5% in Water 1,000 ML IV PRN (18:12)
[2020-07-15] MEDS ORDERED: Dexamethasone 4 mg/ml Vial ONE (18:18)
[2020-07-15 19:56] LABS: Lactic Acid 2.2 mmol/L (0.5-2.2)
[2020-07-15 20:10] LABS: Troponin I 0.027 ng/mL (< 0.028)
[2020-07-15] MEDS ORDERED: Azithromycin 500 MG VIAL ONE (21:01)
[2020-07-15] MEDS ORDERED: Potassium Chloride 20 MEQ TAB ONE (21:01)
[2020-07-15] MEDS: Azithromycin 500 MG in Sodium Chloride 0.9% 250 ML 250 ML IVPB SCH (21:10)
[2020-07-15] MEDS: Sodium Chloride 0.9% 1,000 ML IV SCH (21:11)
[2020-07-15] MEDS ORDERED: Famotidine 20 MG TAB ONE (22:34)
[2020-07-15] MEDS ORDERED: levETIRAcetam 500 MG/100 ML PREMIX BAG ONE (22:37)
[2020-07-15] MEDS: Famotidine 20 MG TAB PO SCH (22:39)
[2020-07-15] MEDS: levETIRAcetam in NS 500 MG in Premix Bag 1 BAG IVPB SCH (22:42)
[2020-07-15 23:07] LABS: Troponin I 0.026 ng/mL (< 0.028)
[2020-07-15] MEDS: MEROPENEM 1 GM/50 ML 1 GM in Premix Bag 1 BAG IVPB SCH (23:39)
--- NOTE | 2020-07-16 01:04 | HP ---
CHIEF COMPLAINT: Hypoxia. HISTORY OF PRESENT ILLNESS: Patient is a [facility] resident. She does not really speak very much. She was noted to be COVID positive around 48 hours ago. She was noted to be hypoxic at 85 at 4 L. She has not been eating very much. Per the records, she was initially on nonrebreather and her sats went up to 92%. She is awake and oriented only to self. She was noted to have a temperature of 102 in the ER. She also was noted to have some diarrhea in the past few days. REVIEW OF SYSTEMS: Unable to obtain. PAST MEDICAL HISTORY: She has a history of: 1. GERD. 2. Hyperlipidemia. 3. Hypercholesterolemia. 4. Hypertension. 5. Osteoarthritis. 6. CVA. 7. Asthma. 8. COPD. 9. Seizure disorder. 10. Dementia. 11. Diabetes. PAST SURGICAL HISTORY: She has had a tubal ligation, staph infection of the left buttocks, and cholecystectomy. SOCIAL HISTORY: This is all per notes. There is no history of alcohol use, drug use, or smoking history. Unable to assess code status with her. PHYSICAL EXAMINATION: VITAL SIGNS: Temperature of 101.8, 98% on high-flow, respirations of 18, 146/83, and pulse of 111. GENERAL: She is awake, oriented to self, hugging her stephen bears. CV: Slightly tachycardic. LUNGS: Mild rhonchi noted to bilateral lung bases. ABDOMEN: Soft, nontender. Bowel sounds are present x2. EXTREMITY: 1 to 2+ lower extremity pitting edema. Neurovascular munoz, she is able to move all 4 extremities. SKIN: No cuts or lesions that are visible. LABORATORY RESULTS: As of the following; WBCs of 14.4, hemoglobin of 13.3, hematocrit of 40.8, and platelets of 252. Sodium of 137, potassium of 3.4, BUN of 42, creatinine 0.81, and glucose of 225. Her ferritin was 2416. Her CRP was 19. Her LDH was 400. Bili of 2.5, AST of 40. She had a blood gas of [facility] that indicated an O2 of 34. She did have a chest x-ray that indicated lingular and left lower consolidation suggesting pneumonia aspiration. ASSESSMENT AND PLAN: Patient is a 70-year-old female, who presents to the hospital with shortness of breath. 1. Acute hypoxic respiratory failure. We will start the patient currently on high-flow. She is not a candidate for Remdesivir. I did speak with the pharmacist. We will start her on some steroids. We will also give her antibiotics. She does have some opacification noted on the left lower lung area. Her heart border is not very clearly visible. I will also start hydrating her a little bit. She has been having diarrhea. It is hard to say how much diarrhea she is having. She appears to be little tachycardic. 2. Sepsis, most likely secondary to COVID pneumonia versus pneumonia. Again, I will treat her empirically for pneumonia. I will also start her on steroids and treat her for COVID pneumonia which is most likely viral. It is really hard to say as patient is unable to provide me a good history. I will just start her with antibiotics and also with some steroids. We will have to talk with family for code status. 3. Seizure disorder. We will start her on Keppra. We will change it to IV. 4. Patient has a history of cerebrovascular accident. Again, we will start her on clopidogrel and also a statin. 5. Deep venous thrombosis prophylaxis. I will put the patient on subcu Lovenox. Job ID: [id number]
[2020-07-16] MEDS: Clopidogrel Bisulfate 75 MG TAB PO SCH (08:12)
[2020-07-16] MEDS: Enoxaparin Sodium 40 MG/0.4 ML SYRINGE SC SCH (08:12)
[2020-07-16] MEDS: Famotidine 20 MG TAB PO SCH ×2 (08:12→20:03)
[2020-07-16] MEDS: Dexamethasone 4 mg/ml Vial SLOW IVP SCH (08:12)
[2020-07-16] MEDS: levETIRAcetam in NS 500 MG in Premix Bag 1 BAG IVPB SCH ×2 (08:16→20:03)
[2020-07-16] MEDS: MEROPENEM 1 GM/50 ML 1 GM in Premix Bag 1 BAG IVPB SCH ×2 (08:33→15:15)
[2020-07-16] MEDS ORDERED: FLU VACC QS2020-21(65YR UP)/PF 240 MCG/0.7 ML SYRINGE IM ONE (09:00)
--- NOTE | 2020-07-16 16:32 | PDOC.HOSPP ---
- Subjective Encounter Date: 07/16/20 Encounter Time: 16:30 Subjective: alert, cheerfull, cuddling her stephen bear - Objective Vital Signs & Weight: Vital Signs (12 hours) Temp Pulse Ox 07/16/20 08:00 100 07/16/20 06:00 100 07/16/20 05:38 97.6 F 07/16/20 05:21 97 Weight Weight 142 lb 1.6 oz Most Recent Monitor Data Heart Rate from ECG 75 NIBP 113/67 NIBP BP-Mean 82 Respiration from ECG 30 SpO2 98 Result Diagrams: 07/15/20 16:11 07/15/20 16:11 Hospitalist ROS - Medication Medications: Active Medications Generic Name Dose Route Start Last Admin Trade Name Freq PRN Reason Stop Dose Admin Clopidogrel Bisulfate 75 mg 07/16/20 09:00 07/16/20 08:12 Clopidogrel Bisulfate 75 Mg Tab PO 75 mg DAILY ELOISE Administration Dexamethasone 6 mg 07/16/20 09:00 07/16/20 08:12 Dexamethasone 4 Mg/Ml Vial SLOW IVP 6 mg DAILY ELOISE Administration Enoxaparin Sodium 40 mg 07/16/20 09:00 07/16/20 08:12 Enoxaparin Sodium 40 Mg/0.4 Ml Syringe SC 40 mg 0900 ELOISE Administration Famotidine 20 mg 07/15/20 21:00 07/16/20 08:12 Famotidine 20 Mg Tab PO 20 mg BID ELOISE Administration Azithromycin 500 mg/ Sodium 250 mls @ 250 mls/hr 07/15/20 18:00 07/15/20 21:10 Chloride IVPB 250 mls Q24HR ELOISE Administration Sodium Chloride 1,000 mls @ 75 mls/hr 07/15/20 18:15 07/15/20 21:11 Normal Saline 0.9% IV 1,000 mls .[id number] ELOISE Administration Levetiracetam 500 mg/ Device 100 mls @ 200 mls/hr 07/15/20 21:00 07/16/20 08:16 IVPB 100 mls BID ELOISE Administration - Exam General Appearance: awake alert Neck: no JVD Heart: RRR, no murmur Respiratory: CTAB Gastrointestinal: soft, non-distended, normal bowel sounds Extremities: no edema Hosp A/P (1) PNA (pneumonia) Code(s): J18.9 - PNEUMONIA, UNSPECIFIED ORGANISM Status: Acute Qualifiers: Pneumonia type: due to Pneumococcus Laterality: left Lung location: unspecified part of lung Qualified Code(s): J13 - Pneumonia due to Streptococcus pneumoniae (2) Acute respiratory failure Code(s): J96.00 - ACUTE RESPIRATORY FAILURE, UNSP W HYPOXIA OR HYPERCAPNIA Status: Acute Qualifiers: Respiratory failure complication: hypoxia Qualified Code(s): J96.01 - Acute respiratory failure with hypoxia (3) COVID-19 virus detected Code(s): U07.1 - COVID-19 Status: Acute (4) COPD (chronic obstructive pulmonary disease) Status: Chronic Qualifiers: Emphysema type: unspecified (5) Dementia Code(s): F03.90 - UNSPECIFIED DEMENTIA WITHOUT BEHAVIORAL DISTURBANCE Status: Chronic Qualifiers: Alzheimer's disease onset: unspecified onset Dementia behavioral disturbance: without behavioral disturbance (6) HTN (hypertension) Code(s): I10 - ESSENTIAL (PRIMARY) HYPERTENSION Status: Chronic Qualifiers: Hypertension type: essential hypertension Qualified Code(s): I10 - Essential (primary) hypertension (7) DM type 2 (diabetes mellitus, type 2) Status: Acute Qualifiers: Diabetes mellitus continuous churn buttermaker insulin use: with residential use Diabetes mellitus complication status: without complication Qualified Code(s): E11.9 - Type 2 diabetes mellitus without complications; Z79.4 - intermediate teacher (current) use of insulin - Plan iv decadron 90 & O2 sat on NC cont home meds , HTN, seizure accu/ss/ basal insulin
[2020-07-16] MEDS ORDERED: Dextrose 5% in Water 1,000 ML IV PRN (16:36)
[2020-07-16] MEDS ORDERED: Dextrose 50% Abboject 50 ML SYRINGE SLOW IVP PRN (16:36)
[2020-07-16] MEDS: Cefepime 1 GM in Sodium Chloride 0.9% 100 ML IVPB SCH (17:08)
[2020-07-16] MEDS: Azithromycin 500 MG in Sodium Chloride 0.9% 250 ML 250 ML IVPB SCH (17:23)
[2020-07-16] MEDS: Sodium Chloride 0.9% 1,000 ML IV SCH (21:25)
[2020-07-17 03:57] LABS: #Eosinphils 0.1 thou/uL (0.0-0.7); #Lymphocytes 1.5 thou/uL (1.20-3.40); #Monocytes 0.8 thou/uL (0.11-0.59); #Neutrophils 15.1 thou/uL (1.40-6.50); %Basophils 0.1 % (0.0-1.0); %Eosinophils 0.4 % (0.0-10.0); %Lymphocytes 8.7 % (21.0-51.0); %Monocytes 4.6 % (0.0-10.0); %Neutrophils 86.2 % (42.0-75.0); Hemoglobin 11.9 g/dL (12.0-16.0); Mean Corpuscular HGB CONC 32.1 g/dL (32.0-36.0); Mean Corpuscular Hemoglobin 29.4 pg (27.0-31.0); Mean Corpuscular Volume 91.5 fL (78.0-98.0); Mean Platelet Volume 9.6 fL (7.4-10.4); Platelet Count 247 thou/uL (130-400); RBC Distribution Width 12.9 % (11.5-14.5); Red Blood Cell (RBC) Count 4.05 mill/uL (4.20-5.40); White Blood Cell (WBC) Count 17.6 thou/uL (4.8-10.8)
[2020-07-17 04:08] LABS: Anion Gap 13 mmol/L (10-20); BUN (Urea Nitrogen) 20 mg/dL (9.8-20.1); Calc. Creatinine Clearance 79 mL/min (70-130); Calcium 8.6 mg/dL (7.8-10.44); Carbon Dioxide 24 mmol/L (23-31); Chloride 104 mmol/L (98-107); Estimated GFR-MDRD 85; Glucose 294 mg/dL (80-115); Potassium 4.1 mmol/L (3.5-5.1); Sodium 137 mmol/L (136-145)
[2020-07-17] MEDS: Cefepime 1 GM in Sodium Chloride 0.9% 100 ML IVPB SCH ×2 (04:37→19:47)
[2020-07-17] MEDS: HumaLOG 300 UNITS/3 ML VIAL SC PRN ×2 (06:00→20:21)
--- NOTE | 2020-07-17 07:22 | PDOC.HOSPP ---
- Subjective Encounter Date: 07/17/20 Encounter Time: 07:15 Subjective: confused, no distress - Objective Vital Signs & Weight: Vital Signs (12 hours) Pulse Ox 07/16/20 20:00 92 L Weight Weight 142 lb 1.6 oz Most Recent Monitor Data Heart Rate from ECG 90 NIBP 130/71 NIBP BP-Mean 90 Respiration from ECG 35 SpO2 96 I&O: 07/16/20 07/17/20 07/18/20 06:59 06:59 06:59 Intake Total 2590 Output Total 1200 Balance 1390 Result Diagrams: 07/17/20 03:13 07/17/20 03:13 Additional Labs: Accuchecks 07/17/20 07/16/20 05:20 20:07 POC Glucose 248 H 271 H Hospitalist ROS - Medication Medications: Active Medications Generic Name Dose Route Start Last Admin Trade Name Freq PRN Reason Stop Dose Admin Clopidogrel Bisulfate 75 mg 07/16/20 09:00 07/16/20 08:12 Clopidogrel Bisulfate 75 Mg Tab PO 75 mg DAILY ELOISE Administration Dexamethasone 6 mg 07/16/20 09:00 07/16/20 08:12 Dexamethasone 4 Mg/Ml Vial SLOW IVP 6 mg DAILY ELOISE Administration Enoxaparin Sodium 40 mg 07/16/20 09:00 07/16/20 08:12 Enoxaparin Sodium 40 Mg/0.4 Ml Syringe SC 40 mg 0900 ELOISE Administration Famotidine 20 mg 07/15/20 21:00 07/16/20 20:03 Famotidine 20 Mg Tab PO 20 mg BID ELOISE Administration Azithromycin 500 mg/ Sodium 250 mls @ 250 mls/hr 07/15/20 18:00 07/16/20 17:23 Chloride IVPB 250 mls Q24HR ELOISE Administration Sodium Chloride 1,000 mls @ 75 mls/hr 07/15/20 18:15 07/16/20 21:25 Normal Saline 0.9% IV 1,000 mls .[id number] ELOISE Administration Levetiracetam 500 mg/ Device 100 mls @ 200 mls/hr 07/15/20 21:00 07/16/20 20:03 IVPB 100 mls BID ELOISE Administration Cefepime HCl 1 gm/ Sodium 100 mls @ 200 mls/hr 07/16/20 17:00 07/17/20 04:37 Chloride IVPB 100 mls 0500,1700 ELOISE Administration Insulin Human Lispro 0 units 07/15/20 18:12 07/17/20 06:00 Humalog 300 Units/3 Ml Vial SC 3 unit .MILD SLIDING SCALE PRN Administration Mild Correctional Scale - Exam Neck: no JVD Heart: RRR, no murmur Respiratory: CTAB Gastrointestinal: soft, non-tender, normal bowel sounds Extremities: 1+ LE edema Hosp A/P (1) PNA (pneumonia) Code(s): J18.9 - PNEUMONIA, UNSPECIFIED ORGANISM Status: Acute Qualifiers: Pneumonia type: due to Pneumococcus Laterality: left Lung location: unspecified part of lung Qualified Code(s): J13 - Pneumonia due to Streptococcus pneumoniae (2) Acute respiratory failure Code(s): J96.00 - ACUTE RESPIRATORY FAILURE, UNSP W HYPOXIA OR HYPERCAPNIA Status: Acute Qualifiers: Respiratory failure complication: hypoxia Qualified Code(s): J96.01 - Acute respiratory failure with hypoxia (3) COVID-19 virus detected Code(s): U07.1 - COVID-19 Status: Acute (4) COPD (chronic obstructive pulmonary disease) Status: Chronic Qualifiers: Emphysema type: unspecified (5) Dementia Code(s): F03.90 - UNSPECIFIED DEMENTIA WITHOUT BEHAVIORAL DISTURBANCE Status: Chronic Qualifiers: Alzheimer's disease onset: unspecified onset Dementia behavioral disturbance: without behavioral disturbance (6) HTN (hypertension) Code(s): I10 - ESSENTIAL (PRIMARY) HYPERTENSION Status: Chronic Qualifiers: Hypertension type: essential hypertension Qualified Code(s): I10 - Essential (primary) hypertension (7) DM type 2 (diabetes mellitus, type 2) Status: Acute Qualifiers: Diabetes mellitus mcc insulin use: with mcc use Diabetes mellitus complication status: without complication Qualified Code(s): E11.9 - Type 2 diabetes mellitus without complications; Z79.4 - termite treater (current) use of insulin - Plan iv decadron requiring hih flowO2 add convalesent plasma cont home meds , HTN, seizure accu/ss/ basal insulin
[2020-07-17] MEDS: Enoxaparin Sodium 40 MG/0.4 ML SYRINGE SC SCH (10:09)
[2020-07-17] MEDS: Cholecalciferol 1,000 UNITS (25 MCG) TAB PO SCH (10:10)
[2020-07-17] MEDS: Famotidine 20 MG TAB PO SCH ×2 (10:10→19:47)
[2020-07-17] MEDS: Clopidogrel Bisulfate 75 MG TAB PO SCH (10:10)
[2020-07-17] MEDS: Dexamethasone 4 mg/ml Vial SLOW IVP SCH (10:10)
[2020-07-17] MEDS: levETIRAcetam in NS 500 MG in Premix Bag 1 BAG IVPB SCH ×2 (10:10→19:47)
[2020-07-17] MEDS: Insulin Glargine 15 UNITS in Pre-Filled Syringe 1 EACH SC SCH (10:11)
[2020-07-17] MEDS: Ascorbic Acid 500 mg Chewable Tablet PO SCH (10:14)
[2020-07-17] MEDS: Azithromycin 500 MG in Sodium Chloride 0.9% 250 ML 250 ML IVPB SCH (18:13)
[2020-07-17] MEDS: Sodium Chloride 0.9% 1,000 ML IV SCH (18:16)
[2020-07-18 03:51] LABS: Anion Gap 11 mmol/L (10-20); BUN (Urea Nitrogen) 16 mg/dL (9.8-20.1); Band 6 % (5-11); Calc. Creatinine Clearance 101 mL/min (70-130); Calcium 8.1 mg/dL (7.8-10.44); Carbon Dioxide 27 mmol/L (23-31); Chloride 107 mmol/L (98-107); Estimated GFR-MDRD Greater than 90; Glucose 219 mg/dL (80-115); Hemoglobin 11.1 g/dL (12.0-16.0); Lymphocytes 23 % (21-51); MDiff Complete? YES; Mean Corpuscular Hemoglobin 27.8 pg (27.0-31.0); Mean Corpuscular Volume 89.7 fL (78.0-98.0); Mean Platelet Volume 9.4 fL (7.4-10.4); Metamyelocyte 4 % (0-0); Monocytes 4 % (0-10); Neutrophil 62 % (42-75); Platelet Count 253 thou/uL (130-400); Platelet Morphology Comment Appears Adequate; RBC Distribution Width 12.7 % (11.5-14.5); Reactive Lymphocytes 1 % (0-10); Sodium 141 mmol/L (136-145); White Blood Cell (WBC) Count 14.9 thou/uL (4.8-10.8)
--- NOTE | 2020-07-18 07:25 | PDOC.HOSPP ---
- Subjective Encounter Date: 07/18/20 Encounter Time: 07:19 Subjective: confused, cheerful, no distress - Objective Vital Signs & Weight: Vital Signs (12 hours) Pulse Ox 07/17/20 20:00 94 L Weight Admit Weight 142 lb 1.6 oz Weight 142 lb 1.6 oz Most Recent Monitor Data Heart Rate from ECG 69 NIBP 123/69 NIBP BP-Mean 87 Respiration from ECG 21 SpO2 91 I&O: 07/17/20 07/18/20 07/19/20 06:59 06:59 06:59 Intake Total 2590 Output Total 1200 Balance 1390 Result Diagrams: 07/18/20 03:05 07/18/20 03:05 Additional Labs: Accuchecks 07/18/20 07/17/20 06:12 19:59 POC Glucose 190 H 323 H Hospitalist ROS - Medication Medications: Active Medications Generic Name Dose Route Start Last Admin Trade Name Freq PRN Reason Stop Dose Admin Ascorbic Acid 1,000 mg 07/17/20 09:00 07/17/20 10:14 Ascorbic Acid 500 Mg Chewable Tablet PO 1,000 mg DAILY ELOISE Administration Cholecalciferol 1,000 units 07/17/20 09:00 07/17/20 10:10 Cholecalciferol 1,000 Units (25 Mcg) Tab PO 1,000 units DAILY ELOISE Administration Clopidogrel Bisulfate 75 mg 07/16/20 09:00 07/17/20 10:10 Clopidogrel Bisulfate 75 Mg Tab PO 75 mg DAILY ELOISE Administration Dexamethasone 6 mg 07/16/20 09:00 07/17/20 10:10 Dexamethasone 4 Mg/Ml Vial SLOW IVP 6 mg DAILY ELOISE Administration Enoxaparin Sodium 40 mg 07/16/20 09:00 07/17/20 10:09 Enoxaparin Sodium 40 Mg/0.4 Ml Syringe SC 40 mg 0900 ELOISE Administration Famotidine 20 mg 07/15/20 21:00 07/17/20 19:47 Famotidine 20 Mg Tab PO 20 mg BID ELOISE Administration Azithromycin 500 mg/ Sodium 250 mls @ 250 mls/hr 07/15/20 18:00 07/17/20 18:13 Chloride IVPB 250 mls Q24HR ELOISE Administration Sodium Chloride 1,000 mls @ 75 mls/hr 07/15/20 18:15 07/17/20 18:16 Normal Saline 0.9% IV 1,000 mls .[id number] ELOISE Administration Levetiracetam 500 mg/ Device 100 mls @ 200 mls/hr 07/15/20 21:00 07/17/20 19:47 IVPB 100 mls BID ELOISE Administration Insulin Glargine 15 units/ 0.15 mls @ 0 mls/hr 07/17/20 09:00 07/17/20 10:11 Miscellaneous Medication SC 0.15 mls QAM ELOIES Administration Cefepime HCl 1 gm/ Sodium 100 mls @ 200 mls/hr 07/17/20 21:00 07/17/20 19:47 Chloride IVPB 100 mls 0900,2100 ELOISE Administration Insulin Human Lispro 0 units 07/15/20 18:12 07/17/20 20:21 Humalog 300 Units/3 Ml Vial SC 5 unit .MILD SLIDING SCALE PRN Administration Mild Correctional Scale - Exam General Appearance: awake alert Neck: no JVD Heart: RRR, no murmur Respiratory: CTAB Gastrointestinal: soft, normal bowel sounds Extremities: no edema Hosp A/P (1) PNA (pneumonia) Code(s): J18.9 - PNEUMONIA, UNSPECIFIED ORGANISM Status: Acute Qualifiers: Pneumonia type: due to Pneumococcus Laterality: left Lung location: unspecified part of lung Qualified Code(s): J13 - Pneumonia due to Streptococcus pneumoniae (2) Acute respiratory failure Code(s): J96.00 - ACUTE RESPIRATORY FAILURE, UNSP W HYPOXIA OR HYPERCAPNIA Status: Acute Qualifiers: Respiratory failure complication: hypoxia Qualified Code(s): J96.01 - Acute respiratory failure with hypoxia (3) COVID-19 virus detected Code(s): U07.1 - COVID-19 Status: Acute (4) COPD (chronic obstructive pulmonary disease) Status: Chronic Qualifiers: Emphysema type: unspecified (5) Dementia Code(s): F03.90 - UNSPECIFIED DEMENTIA WITHOUT BEHAVIORAL DISTURBANCE Status: Chronic Qualifiers: Alzheimer's disease onset: unspecified onset Dementia behavioral disturbance: without behavioral disturbance (6) HTN (hypertension) Code(s): I10 - ESSENTIAL (PRIMARY) HYPERTENSION Status: Chronic Qualifiers: Hypertension type: essential hypertension Qualified Code(s): I10 - Essential (primary) hypertension (7) DM type 2 (diabetes mellitus, type 2) Status: Acute Qualifiers: Diabetes mellitus ferry terminal agent insulin use: with ferry terminal agent use Diabetes mellitus complication status: without complication Qualified Code(s): E11.9 - Type 2 diabetes mellitus without complications; Z79.4 - snf (current) use of insulin - Plan iv decadron requiring hih flowO2 PCXR cont home meds , HTN, seizure accu/ss/ basal insulin
[2020-07-18] MEDS: Famotidine 20 MG TAB PO SCH ×2 (09:04→21:22)
[2020-07-18] MEDS: Insulin Glargine 15 UNITS in Pre-Filled Syringe 1 EACH SC SCH (09:04)
[2020-07-18] MEDS: Enoxaparin Sodium 40 MG/0.4 ML SYRINGE SC SCH (09:04)
[2020-07-18] MEDS: Clopidogrel Bisulfate 75 MG TAB PO SCH (09:05)
[2020-07-18] MEDS: Cholecalciferol 1,000 UNITS (25 MCG) TAB PO SCH (09:05)
[2020-07-18] MEDS: Dexamethasone 4 mg/ml Vial SLOW IVP SCH (09:05)
[2020-07-18] MEDS: Ascorbic Acid 500 mg Chewable Tablet PO SCH (09:05)
[2020-07-18] MEDS: Cefepime 1 GM in Sodium Chloride 0.9% 100 ML IVPB SCH ×2 (09:06→21:22)
[2020-07-18] MEDS: levETIRAcetam in NS 500 MG in Premix Bag 1 BAG IVPB SCH ×2 (09:06→21:22)
[2020-07-18] MEDS: Sodium Chloride 0.9% 1,000 ML IV SCH ×2 (09:07→21:22)
--- NOTE | 2020-07-18 09:19 | RAD ---
EXAM: Chest one view: HISTORY: Follow-up pneumonia, Covid positive COMPARISON: 07/15/2020 FINDINGS: Decreased inspiratory effort. Heart size: Within normal limits. Lungs: Worsening bilateral alveolar, interstitial and groundglass opacity changes. Evidence for developing pleural effusions. IMPRESSION: Worsening bilateral parenchymal changes with developing small pleural effusions. Continued short-term follow-up.
[2020-07-18] MEDS: HumaLOG 300 UNITS/3 ML VIAL SC PRN ×2 (11:47→21:42)
--- NOTE | 2020-07-18 17:05 | PDOC.BPN ---
- Brief Progress Note Encounter Date: 07/18/20 Encounter Time: 17:04 CXR adverse. discussed with ID. no advantage to plasma or remdesvir in this patient
[2020-07-18] MEDS: Azithromycin 500 MG in Sodium Chloride 0.9% 250 ML 250 ML IVPB SCH (19:05)
[2020-07-19] MEDS: Insulin Glargine 15 UNITS in Pre-Filled Syringe 1 EACH SC SCH (09:23)
[2020-07-19] MEDS: levETIRAcetam in NS 500 MG in Premix Bag 1 BAG IVPB SCH ×2 (09:23→21:14)
[2020-07-19] MEDS: Enoxaparin Sodium 40 MG/0.4 ML SYRINGE SC SCH (09:23)
[2020-07-19] MEDS: Cefepime 1 GM in Sodium Chloride 0.9% 100 ML IVPB SCH (09:23)
[2020-07-19] MEDS: Dexamethasone 4 mg/ml Vial SLOW IVP SCH (09:24)
[2020-07-19] MEDS: Ascorbic Acid 500 mg Chewable Tablet PO SCH (09:26)
[2020-07-19] MEDS: Famotidine 20 MG TAB PO SCH ×2 (09:26→21:14)
[2020-07-19] MEDS: Clopidogrel Bisulfate 75 MG TAB PO SCH (09:26)
[2020-07-19] MEDS: Cholecalciferol 1,000 UNITS (25 MCG) TAB PO SCH (09:26)
[2020-07-19] MEDS: Sodium Chloride 0.9% 1,000 ML IV SCH ×2 (11:32→23:57)
--- NOTE | 2020-07-19 12:58 | PRG ---
DATE OF SERVICE: 07/19/2020 SUBJECTIVE: There has not been a significant change in status in the past 24 hours. She remains on high-flow nasal cannula 50 L at 70%. Even at this saturation is at best 90. There is no report of fevers, chills, nausea, or vomiting. OBJECTIVE: VITAL SIGNS: Blood pressure 124/67, respiratory rate is 40, oxygen saturation 90 on high-flow nasal cannula as described above. She is in modest respiratory distress. HEENT: Shows no adenopathy. LUNGS: Show bilateral coarse crackles. HEART: Regular rate and rhythm. ABDOMEN: Soft. There is no organomegaly. There is no cords or tenderness. LABORATORY DATA: None today. IMPRESSION: COVID pneumonia with marginal saturation and concern for impending respiratory failure. PLAN: We will continue current therapies, although margin for needing ventilatory support is low. She remains on steroids and empiric antibiotics and has received convalescent plasma. Critical care, 30 minutes. Job ID: [id number]
--- NOTE | 2020-07-19 17:01 | PDOC.HOSPP ---
- Subjective Encounter Date: 07/19/20 - Objective Vital Signs & Weight: Vital Signs (12 hours) Pulse BP Pulse Ox Pulse Ox 07/19/20 11:16 73 132/66 93 L 07/19/20 08:00 92 L Weight Admit Weight 142 lb 1.6 oz Weight 142 lb 1.6 oz Most Recent Monitor Data Heart Rate from ECG 75 NIBP 140/77 NIBP BP-Mean 98 Respiration from ECG 23 SpO2 95 I&O: 07/18/20 07/19/20 07/20/20 06:59 06:59 06:59 Intake Total 1322 600 Output Total 475 Balance 847 600 Result Diagrams: 07/18/20 03:05 07/18/20 03:05 Additional Labs: Accuchecks 07/19/20 07/18/20 07/18/20 05:37 21:26 17:13 POC Glucose 126 H 257 H 259 H Hospitalist ROS - Medication Medications: Active Medications Generic Name Dose Route Start Last Admin Trade Name Freq PRN Reason Stop Dose Admin Ascorbic Acid 1,000 mg 07/17/20 09:00 07/19/20 09:26 Ascorbic Acid 500 Mg Chewable Tablet PO 1,000 mg DAILY ELOISE Administration Cholecalciferol 1,000 units 07/17/20 09:00 07/19/20 09:26 Cholecalciferol 1,000 Units (25 Mcg) Tab PO 1,000 units DAILY ELOISE Administration Clopidogrel Bisulfate 75 mg 07/16/20 09:00 07/19/20 09:26 Clopidogrel Bisulfate 75 Mg Tab PO 75 mg DAILY ELOISE Administration Dexamethasone 6 mg 07/16/20 09:00 07/19/20 09:24 Dexamethasone 4 Mg/Ml Vial SLOW IVP 6 mg DAILY ELOISE Administration Enoxaparin Sodium 40 mg 07/16/20 09:00 07/19/20 09:23 Enoxaparin Sodium 40 Mg/0.4 Ml Syringe SC 40 mg 0900 ELOISE Administration Famotidine 20 mg 07/15/20 21:00 07/19/20 09:26 Famotidine 20 Mg Tab PO 20 mg BID ELOISE Administration Azithromycin 500 mg/ Sodium 250 mls @ 250 mls/hr 07/15/20 18:00 07/18/20 19:05 Chloride IVPB 250 mls Q24HR ELOISE Administration Sodium Chloride 1,000 mls @ 75 mls/hr 07/15/20 18:15 07/19/20 11:32 Normal Saline 0.9% IV Not Given .[id number] ELOISE Levetiracetam 500 mg/ Device 100 mls @ 200 mls/hr 07/15/20 21:00 07/19/20 09:23 IVPB 100 mls BID ELOISE Administration Insulin Glargine 15 units/ 0.15 mls @ 0 mls/hr 07/17/20 09:00 07/19/20 09:23 Miscellaneous Medication SC 0.15 mls QAM ELOISE Administration Cefepime HCl 1 gm/ Sodium 100 mls @ 200 mls/hr 07/17/20 21:00 07/19/20 09:23 Chloride IVPB 100 mls 0900,2100 ELOISE Administration Insulin Human Lispro 0 units 07/15/20 18:12 07/18/20 21:42 Humalog 300 Units/3 Ml Vial SC 4 unit .MILD SLIDING SCALE PRN Administration Mild Correctional Scale - Exam General Appearance: awake alert ENT: normocephalic atraumatic Neck: supple, no JVD Heart: RRR Respiratory: normal chest expansion, no tachypnea Gastrointestinal: soft, non-tender, non-distended, normal bowel sounds Neurological: cranial nerve grossly intact, no focal deficits Hosp A/P (1) COVID-19 virus detected Code(s): U07.1 - COVID-19 Status: Acute (2) DM type 2 (diabetes mellitus, type 2) Status: Acute Qualifiers: Diabetes mellitus joint terminal attack controller insulin use: with longterm use Diabetes mellitus complication status: without complication Qualified Code(s): E11.9 - Type 2 diabetes mellitus without complications; Z79.4 - joint terminal attack controller (current) use of insulin (3) PNA (pneumonia) Code(s): J18.9 - PNEUMONIA, UNSPECIFIED ORGANISM Status: Acute Qualifiers: Pneumonia type: due to Pneumococcus Laterality: left Lung location: unspecified part of lung Qualified Code(s): J13 - Pneumonia due to Streptococcus pneumoniae (4) COPD (chronic obstructive pulmonary disease) Status: Chronic Qualifiers: Emphysema type: unspecified (5) Dementia Code(s): F03.90 - UNSPECIFIED DEMENTIA WITHOUT BEHAVIORAL DISTURBANCE Status: Chronic Qualifiers: Alzheimer's disease onset: unspecified onset Dementia behavioral disturbance: without behavioral disturbance (6) HTN (hypertension) Code(s): I10 - ESSENTIAL (PRIMARY) HYPERTENSION Status: Chronic Qualifiers: Hypertension type: essential hypertension Qualified Code(s): I10 - Essential (primary) hypertension - Plan Patient is on high flow nasal cannula. Status post convalescent plasma. Continue dexamethasone. Enoxaparin for DVT prophylaxis.
[2020-07-19] MEDS: HumaLOG 300 UNITS/3 ML VIAL SC PRN ×2 (18:12→21:30)
--- NOTE | 2020-07-19 22:19 | CON ---
DATE OF CONSULTATION: 07/19/2020 REASON FOR CONSULTATION: COVID pneumonia. HISTORY OF PRESENT ILLNESS: A 70-year-old resident at the [facility], history of hyperlipidemia, hypertension, CVA, dementia, and seizure disorder who was noticed to be hypoxic about 2 or 3 days before admission. She was tested positive for COVID 2 days before. She had displayed obvious decreased oral intake, placed her on non-rebreather and sats at 92% and had a temperature of 102 in the emergency room. Other findings in the initial evaluation. LABORATORY DATA: White cell count 14,000 hemoglobin 13, platelets 252, 88% neutrophils and D-dimer is 1.53. pH 7.46, pCO2 36 and pO2 34, this is a venous sample, creatinine of 0.81, bilirubin 2.5, AST 40, LDH 400, albumin 3.3. CRP was 19.51. Ferritin 2400. The patient has been started on Decadron, cefepime, Keppra. PHYSICAL EXAMINATION: GENERAL: Ms. Lane is awake. She knew she was in the hospital, she thought this was [place], but she knew the city correctly. She denied any headaches, coughing intermittently, mild dyspnea. No chest pain. No abdominal pain. She is voiding in the diaper. Denies any joint symptoms. She states that she is unable to walk for a while now. PAST MEDICAL HISTORY: GERD, hyperlipidemia, hypertension, osteoarthritis, CVA, asthma, seizure disorder, dementia, type 2 diabetes. PAST SURGICAL HISTORY: Tubal ligation, skin infections, cholecystectomy. SOCIAL HISTORY: senior care resident, never smoker. ALLERGY HISTORY: Penicillin with a rash, not well documented, history of allergy to penicillin, aspirin allergy present. PHYSICAL EXAMINATION: VITAL SIGNS: T-max 97.6, BP 140/77, heart rate 75, respiratory rate 23, O2 saturation 95. SKIN: Normal, peripheral IV access. She does not have a Chi catheter. NECK: No lymphadenopathy. HEENT: Ocular movements conjugate. Oral cavity is not particularly remarkable. Neck is supple. LUNGS: Somewhat coarse breath sounds, but no obvious crackles or wheezing. S1, S2. Regular rate. No S3 or S4. ABDOMEN: Soft, not distended or tender. No ascites. No bladder distention. No joint inflammatory activity. No edema. Pulses 1+ in dorsalis pedis. EXTREMITIES: Little bit of stiffness in all her extremities. She is awake, establishes eye contact. She is able to speak with some difficulty with recollection and orientation, but no agitation. No delusional thinking process. She follows commands. LABORATORY DATA: The labs have been discussed above. The white cell count is up to 14.9, hemoglobin is stable at 11, platelets 253, normal differential. Microbiology, two sets of negative blood cultures. Chest x-ray with bilateral parenchymal changes in. The SARS-CoVID test is from the [facility] and it is positive. ASSESSMENT: 1. Dementia. 2. Hypertension. 3. Seizure disorder. 4. COVID pneumonia, [id number]. She is right now on high-flow nasal cannula O2 at a rate of 50 liters/minute and she is saturating at 95. She is not eligible for remdesivir, because of the duration of illness and the fact that she is on high-flow, although those are not absolute contraindications. The hospital does not have remdesivir to restart a new treatment course anyways. We will continue Decadron and I would probably advise discontinuation of antimicrobial therapy since concomitant bacterial infections are known to be rare in patients with COVID-19. Job ID: [id number]
[2020-07-20 04:03] LABS: Anion Gap 12 mmol/L (10-20); BUN (Urea Nitrogen) 10 mg/dL (9.8-20.1); Calc. Creatinine Clearance 103 mL/min (70-130); Calcium 7.7 mg/dL (7.8-10.44); Carbon Dioxide 25 mmol/L (23-31); Chloride 105 mmol/L (98-107); Estimated GFR-MDRD Greater than 90; Glucose 164 mg/dL (80-115); Sodium 139 mmol/L (136-145)
[2020-07-20 04:12] LABS: Band 9 % (5-11); Hemoglobin 11.3 g/dL (12.0-16.0); Lymphocytes 21 % (21-51); MDiff Complete? YES; Mean Corpuscular HGB CONC 31.6 g/dL (32.0-36.0); Mean Corpuscular Hemoglobin 27.9 pg (27.0-31.0); Mean Corpuscular Volume 88.2 fL (78.0-98.0); Mean Platelet Volume 8.6 fL (7.4-10.4); Metamyelocyte 5 % (0-0); Monocytes 2 % (0-10); Myelocyte 2 % (0-0); Neutrophil 61 % (42-75); Platelet Count 343 thou/uL (130-400); Platelet Morphology Comment Appears Adequate; RBC Distribution Width 12.6 % (11.5-14.5); Red Blood Cell (RBC) Count 4.07 mill/uL (4.20-5.40); White Blood Cell (WBC) Count 16.3 thou/uL (4.8-10.8)
[2020-07-20] MEDS: Dexamethasone 4 mg/ml Vial SLOW IVP SCH (08:00)
[2020-07-20] MEDS: Clopidogrel Bisulfate 75 MG TAB PO SCH (08:01)
[2020-07-20] MEDS: Cholecalciferol 1,000 UNITS (25 MCG) TAB PO SCH (08:01)
[2020-07-20] MEDS: Famotidine 20 MG TAB PO SCH ×2 (08:01→21:54)
[2020-07-20] MEDS: Ascorbic Acid 500 mg Chewable Tablet PO SCH (08:01)
[2020-07-20] MEDS: Enoxaparin Sodium 40 MG/0.4 ML SYRINGE SC SCH (08:01)
[2020-07-20] MEDS: levETIRAcetam in NS 500 MG in Premix Bag 1 BAG IVPB SCH ×2 (08:10→21:54)
--- NOTE | 2020-07-20 11:44 | PRG ---
DATE OF SERVICE: 07/20/2020 SUBJECTIVE: She continues on high-flow nasal cannula, currently 50 L at 70%. This is improved slightly from earlier in the week when she was up to 90, although still remains quite high. There is no cough, sputum, fevers, or chills. PHYSICAL EXAMINATION: VITAL SIGNS: Blood pressure is 164/84, heart rate is 68, respiratory rate 33, pulse ox currently 91%. Oropharynx shows no Neva. LUNGS: Coarse rhonchi. HEART: Regular rate and rhythm without murmur. ABDOMEN: Soft. There is no organomegaly. Bowel sounds are normal. EXTREMITIES: There is no edema. There are no cords or tenderness. LABORATORY DATA: White count 16,300, hemoglobin 11.3 with platelet count 343,000. There is still immature white cells including 61 neutrophils and 9% bands. Chemistries include sodium 139, potassium 3.0, chloride 105, CO2 is 25, BUN 10, and creatinine 0.5. Glucometer ranging from 125 to 265. There is no x-ray today. IMPRESSION: COVID pneumonia with significant hypoxia. PLAN: We will continue current therapies. We will repeat an x-ray tomorrow. Unfortunately, her hypoxia is not allowing any weaning of FiO2. She remains at risk to need ventilatory support. Job ID: [id number]
--- NOTE | 2020-07-20 13:41 | PDOC.HOSPP ---
- Subjective Encounter Date: 07/20/20 Subjective: Confused - Objective Vital Signs & Weight: Vital Signs (12 hours) Temp Pulse Ox 07/20/20 08:00 93 L 07/20/20 03:45 93 L 07/20/20 03:30 97.6 F Weight Admit Weight 142 lb 1.6 oz Weight 142 lb 1.6 oz Most Recent Monitor Data Heart Rate from ECG 68 NIBP 167/84 NIBP BP-Mean 111 Respiration from ECG 33 SpO2 91 I&O: 07/19/20 07/20/20 07/21/20 06:59 06:59 06:59 Intake Total 1322 1760 Output Total 475 1200 Balance 847 560 Result Diagrams: 07/20/20 03:13 07/20/20 03:13 Additional Labs: Accuchecks 07/20/20 07/19/20 07/19/20 05:43 21:19 18:16 POC Glucose 135 H 231 H 265 H Hospitalist ROS - Medication Medications: Active Medications Generic Name Dose Route Start Last Admin Trade Name Césarq PRN Reason Stop Dose Admin Ascorbic Acid 1,000 mg 07/17/20 09:00 07/20/20 08:01 Ascorbic Acid 500 Mg Chewable Tablet PO 1,000 mg DAILY ELOISE Administration Cholecalciferol 1,000 units 07/17/20 09:00 07/20/20 08:01 Cholecalciferol 1,000 Units (25 Mcg) Tab PO 1,000 units DAILY ELOISE Administration Clopidogrel Bisulfate 75 mg 07/16/20 09:00 07/20/20 08:01 Clopidogrel Bisulfate 75 Mg Tab PO 75 mg DAILY ELOISE Administration Dexamethasone 6 mg 07/16/20 09:00 07/20/20 08:00 Dexamethasone 4 Mg/Ml Vial SLOW IVP 6 mg DAILY ELOISE Administration Enoxaparin Sodium 40 mg 07/16/20 09:00 07/20/20 08:01 Enoxaparin Sodium 40 Mg/0.4 Ml Syringe SC 40 mg 09 ELOISE Administration Famotidine 20 mg 07/15/20 21:00 07/20/20 08:01 Famotidine 20 Mg Tab PO 20 mg BID ELOISE Administration Sodium Chloride 1,000 mls @ 75 mls/hr 07/15/20 18:15 07/19/20 23:57 Normal Saline 0.9% IV 1,000 mls .[id number] ELOISE Administration Levetiracetam 500 mg/ Device 100 mls @ 200 mls/hr 07/15/20 21:00 07/20/20 08:10 IVPB 100 mls BID ELOISE Administration Insulin Glargine 15 units/ 0.15 mls @ 0 mls/hr 07/17/20 09:00 07/19/20 09:23 Miscellaneous Medication SC 0.15 mls QAM ELOISE Administration Insulin Human Lispro 0 units 07/15/20 18:12 07/19/20 21:30 Humalog 300 Units/3 Ml Vial SC 3 unit .MILD SLIDING SCALE PRN Administration Mild Correctional Scale - Exam Neck: supple, no JVD Heart: RRR Respiratory: no tachypnea, rhonchi Gastrointestinal: soft, non-tender Neurological: cranial nerve grossly intact Hosp A/P (1) COVID-19 virus detected Code(s): U07.1 - COVID-19 Status: Acute (2) DM type 2 (diabetes mellitus, type 2) Status: Acute Qualifiers: Diabetes mellitus 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 line 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 insulin use: with alf use Diabetes mellitus complication status: without complication Qualified Code(s): E11.9 - Type 2 diabetes mellitus without complications; Z79.4 - termite control representative (current) use of insulin (3) PNA (pneumonia) Code(s): J18.9 - PNEUMONIA, UNSPECIFIED ORGANISM Status: Acute Qualifiers: Pneumonia type: due to Pneumococcus Laterality: left Lung location: unspecified part of lung Qualified Code(s): J13 - Pneumonia due to Streptococcus pneumoniae (4) COPD (chronic obstructive pulmonary disease) Status: Chronic Qualifiers: Emphysema type: unspecified (5) Dementia Code(s): F03.90 - UNSPECIFIED DEMENTIA WITHOUT BEHAVIORAL DISTURBANCE Status: Chronic Qualifiers: Alzheimer's disease onset: unspecified onset Dementia behavioral disturbance: without behavioral disturbance (6) HTN (hypertension) Code(s): I10 - ESSENTIAL (PRIMARY) HYPERTENSION Status: Chronic Qualifiers: Hypertension type: essential hypertension Qualified Code(s): I10 - Essential (primary) hypertension - Plan Patient is still requiring high FiO2 through HFNC. Pulmonology following. Status post convalescent plasma. Continue dexamethasone. Enoxaparin for DVT prophylaxis.
[2020-07-20] MEDS: HumaLOG 300 UNITS/3 ML VIAL SC PRN (14:43)
[2020-07-20] MEDS: Insulin Glargine 15 UNITS in Pre-Filled Syringe 1 EACH SC SCH (14:51)
[2020-07-20] MEDS: Sodium Chloride 0.9% 1,000 ML IV SCH (21:54)
[2020-07-21 03:28] LABS: Lymphocytes 26 % (21-51); MDiff Complete? YES; Mean Corpuscular Hemoglobin 28.8 pg (27.0-31.0); Mean Corpuscular Volume 87.2 fL (78.0-98.0); Mean Platelet Volume 8.1 fL (7.4-10.4); Metamyelocyte 2 % (0-0); Monocytes 1 % (0-10); Neutrophil 71 % (42-75); Platelet Count 357 thou/uL (130-400); Platelet Morphology Comment Appears Adequate; RBC Distribution Width 12.9 % (11.5-14.5); RBC Morphology Normal; Red Blood Cell (RBC) Count 4.16 mill/uL (4.20-5.40); White Blood Cell (WBC) Count 15.7 thou/uL (4.8-10.8)
[2020-07-21 03:29] LABS: Anion Gap 13 mmol/L (10-20); BUN (Urea Nitrogen) 8 mg/dL (9.8-20.1); Calc. Creatinine Clearance 112 mL/min (70-130); Calcium 7.6 mg/dL (7.8-10.44); Carbon Dioxide 26 mmol/L (23-31); Chloride 102 mmol/L (98-107); Estimated GFR-MDRD Greater than 90; Glucose 135 mg/dL (80-115); Sodium 138 mmol/L (136-145)
[2020-07-21 03:34] LABS: Potassium 2.8 mmol/L (3.5-5.1)
[2020-07-21] MEDS ORDERED: Electrolyte Replacement Protoc 1 EACH EACH FS SCH (03:37)
[2020-07-21] MEDS: Potassium Chloride 20 MEQ TAB PO SCH ×2 (04:30→08:29)
--- NOTE | 2020-07-21 07:45 | RAD ---
Portable frontal chest radiograph: 07/21/2020 COMPARISON: 07/18/2020 HISTORY: Covid pneumonia FINDINGS: Groundglass opacity/airspace disease noted in the right lung apex, not significantly change d. Increased density in both lung bases with partial obscuration of the hemidiaphragms and blunting of the costophrenic angles suggests bibasilar airspace disease/consolidation and small bilateral pleu ral effusions. There is focal opacity within the mid left lung zone centrally and peripherally, similar when compared to the prior examination. IMPRESSION: No significant interval change.
[2020-07-21] MEDS: Enoxaparin Sodium 40 MG/0.4 ML SYRINGE SC SCH (08:28)
[2020-07-21] MEDS: levETIRAcetam in NS 500 MG in Premix Bag 1 BAG IVPB SCH ×2 (08:28→20:23)
[2020-07-21] MEDS: Insulin Glargine 15 UNITS in Pre-Filled Syringe 1 EACH SC SCH (08:28)
[2020-07-21] MEDS: Ascorbic Acid 500 mg Chewable Tablet PO SCH (08:29)
[2020-07-21] MEDS: Famotidine 20 MG TAB PO SCH ×2 (08:29→20:23)
[2020-07-21] MEDS: Cholecalciferol 1,000 UNITS (25 MCG) TAB PO SCH (08:30)
[2020-07-21] MEDS: Dexamethasone 4 mg/ml Vial SLOW IVP SCH (08:30)
[2020-07-21] MEDS: Clopidogrel Bisulfate 75 MG TAB PO SCH (08:30)
--- NOTE | 2020-07-21 10:59 | PRG ---
DATE OF SERVICE: 07/21/2020 SUBJECTIVE: The patient is resting comfortably on high-flow nasal cannula at 90% FiO2. Her O2 saturations were running about 90%. She does not say much. OBJECTIVE: VITAL SIGNS: Temperature is 98.8, pulse 78, blood pressure 147/83, and O2 saturation 91%. HEENT: Unremarkable. NECK: No adenopathy or JVD. LUNGS: Inspiratory crackles. CARDIAC: S1 and S2. Regular. ABDOMEN: Soft. EXTREMITIES: No edema. LABORATORY DATA: Her x-ray shows subtle bilateral infiltrates. No real car changer 07/18. White blood cell count 15.7, hematocrit 36.3, and platelet count 357. Sodium 138, potassium 2.8, chloride 102, CO2 of 26, BUN 8, creatinine 0.5, and glucose 135. ASSESSMENT: COVID-19 pneumonia. PLAN: Anticoagulation, low-dose steroids. She remains at significant risk for deterioration. Job ID: [id number]
[2020-07-21] MEDS: HumaLOG 300 UNITS/3 ML VIAL SC PRN ×3 (11:46→20:24)
[2020-07-21] MEDS: Sodium Chloride 0.9% 1,000 ML IV SCH ×2 (11:46→12:24)
[2020-07-21 12:42] LABS: Anion Gap 16 mmol/L (10-20); BUN (Urea Nitrogen) 10 mg/dL (9.8-20.1); Calc. Creatinine Clearance 103 mL/min (70-130); Calcium 8.1 mg/dL (7.8-10.44); Carbon Dioxide 24 mmol/L (23-31); Chloride 102 mmol/L (98-107); Estimated GFR-MDRD Greater than 90; Glucose 276 mg/dL (80-115); Potassium 3.5 mmol/L (3.5-5.1); Sodium 138 mmol/L (136-145)
--- NOTE | 2020-07-21 16:33 | PDOC.HOSPP ---
- Subjective Encounter Date: 07/21/20 - Objective Vital Signs & Weight: Vital Signs (12 hours) Temp 07/21/20 16:00 97.5 F L 07/21/20 12:00 97.3 F L 07/21/20 08:00 98.8 F Weight Admit Weight 142 lb 1.6 oz Weight 144 lb Most Recent Monitor Data Heart Rate from ECG 83 NIBP 143/76 NIBP BP-Mean 98 Respiration from ECG 28 SpO2 94 I&O: 07/20/20 07/21/20 07/22/20 06:59 06:59 06:59 Intake Total 1760 2355 Output Total 1200 3000 Balance 560 -645 Result Diagrams: 07/21/20 02:46 07/21/20 12:06 Additional Labs: Accuchecks 07/21/20 07/21/20 07/20/20 11:21 05:19 21:58 POC Glucose 230 H 135 H 158 H 07/20/20 07/19/20 16:59 14:40 POC Glucose 161 H 266 H Hospitalist ROS - Medication Medications: Active Medications Generic Name Dose Route Start Last Admin Trade Name Césarq PRN Reason Stop Dose Admin Ascorbic Acid 1,000 mg 07/17/20 09:00 07/21/20 08:29 Ascorbic Acid 500 Mg Chewable Tablet PO 1,000 mg DAILY ELOISE Administration Cholecalciferol 1,000 units 07/17/20 09:00 07/21/20 08:30 Cholecalciferol 1,000 Units (25 Mcg) Tab PO 1,000 units DAILY ELOISE Administration Clopidogrel Bisulfate 75 mg 07/16/20 09:00 07/21/20 08:30 Clopidogrel Bisulfate 75 Mg Tab PO 75 mg DAILY ELOISE Administration Dexamethasone 6 mg 07/16/20 09:00 07/21/20 08:30 Dexamethasone 4 Mg/Ml Vial SLOW IVP 6 mg DAILY ELOISE Administration Enoxaparin Sodium 40 mg 07/16/20 09:00 07/21/20 08:28 Enoxaparin Sodium 40 Mg/0.4 Ml Syringe SC 40 mg 0900 ELOISE Administration Famotidine 20 mg 07/15/20 21:00 07/21/20 08:29 Famotidine 20 Mg Tab PO 20 mg BID ELOISE Administration Sodium Chloride 1,000 mls @ 75 mls/hr 07/15/20 18:15 11/16/20 12:24 Normal Saline 0.9% IV Not Given .[id number] ELOISE Levetiracetam 500 mg/ Device 100 mls @ 200 mls/hr 07/15/20 21:00 07/21/20 08:28 IVPB 100 mls BID ELOISE Administration Insulin Glargine 15 units/ 0.15 mls @ 0 mls/hr 07/17/20 09:00 07/21/20 08:28 Miscellaneous Medication SC 0.15 mls QAM ELOISE Administration Insulin Human Lispro 0 units 07/15/20 18:12 07/21/20 11:46 Humalog 300 Units/3 Ml Vial SC 3 unit .MILD SLIDING SCALE PRN Administration Mild Correctional Scale - Exam General Appearance: awake alert ENT: normocephalic atraumatic Neck: supple, no JVD Heart: RRR Respiratory: normal chest expansion, no tachypnea Extremities: no cyanosis, no clubbing Neurological: cranial nerve grossly intact, no focal deficits Hosp A/P (1) COVID-19 virus detected Code(s): U07.1 - COVID-19 Status: Acute (2) DM type 2 (diabetes mellitus, type 2) Status: Acute Qualifiers: 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 insulin use: with intermodal owner operator truck driver use Diabetes mellitus complication status: without complication Qualified Code(s): E11.9 - Type 2 diabetes mellitus without complications; Z79.4 - snf (current) use of insulin (3) PNA (pneumonia) Code(s): J18.9 - PNEUMONIA, UNSPECIFIED ORGANISM Status: Acute Qualifiers: Pneumonia type: due to Pneumococcus Laterality: left Lung location: unspecified part of lung Qualified Code(s): J13 - Pneumonia due to Streptococcus pneumoniae (4) COPD (chronic obstructive pulmonary disease) Status: Chronic Qualifiers: Emphysema type: unspecified (5) Dementia Code(s): F03.90 - UNSPECIFIED DEMENTIA WITHOUT BEHAVIORAL DISTURBANCE Status: Chronic Qualifiers: Alzheimer's disease onset: unspecified onset Dementia behavioral disturbance: without behavioral disturbance (6) HTN (hypertension) Code(s): I10 - ESSENTIAL (PRIMARY) HYPERTENSION Status: Chronic Qualifiers: Hypertension type: essential hypertension Qualified Code(s): I10 - Essential (primary) hypertension - Plan The patient's oxygen requirement is worsening. She is now requiring over 90% FiO2's to sustain oxygen saturations in the low 90s. Pulmonology following. Status post convalescent plasma. Continue dexamethasone. Enoxaparin for DVT prophylaxis.
[2020-07-22 03:43] LABS: Eosinophils 1 % (0-10); Hemoglobin 11.5 g/dL (12.0-16.0); Lymphocytes 21 % (21-51); MDiff Complete? YES; Mean Corpuscular Hemoglobin 28.8 pg (27.0-31.0); Mean Corpuscular Volume 87.3 fL (78.0-98.0); Mean Platelet Volume 8.7 fL (7.4-10.4); Metamyelocyte 10 % (0-0); Monocytes 10 % (0-10); Myelocyte 1 % (0-0); Neutrophil 57 % (42-75); Platelet Count 366 thou/uL (130-400); Platelet Morphology Comment Appears Adequate; RBC Distribution Width 12.9 % (11.5-14.5); Red Blood Cell (RBC) Count 4.01 mill/uL (4.20-5.40)
[2020-07-22 03:50] LABS: Anion Gap 11 mmol/L (10-20); BUN (Urea Nitrogen) 10 mg/dL (9.8-20.1); Calc. Creatinine Clearance 109 mL/min (70-130); Calcium 8.1 mg/dL (7.8-10.44); Carbon Dioxide 25 mmol/L (23-31); Chloride 106 mmol/L (98-107); Estimated GFR-MDRD Greater than 90; Glucose 194 mg/dL (80-115); Potassium 3.7 mmol/L (3.5-5.1); Sodium 138 mmol/L (136-145)
[2020-07-22] MEDS: Sodium Chloride 0.9% 1,000 ML IV SCH ×2 (04:15→17:25)
[2020-07-22] MEDS: Insulin Glargine 15 UNITS in Pre-Filled Syringe 1 EACH SC SCH ×2 (09:01→20:14)
[2020-07-22] MEDS: levETIRAcetam in NS 500 MG in Premix Bag 1 BAG IVPB SCH ×2 (09:01→20:01)
[2020-07-22] MEDS: Enoxaparin Sodium 40 MG/0.4 ML SYRINGE SC SCH (09:02)
[2020-07-22] MEDS: Ascorbic Acid 500 mg Chewable Tablet PO SCH (09:03)
[2020-07-22] MEDS: Dexamethasone 4 mg/ml Vial SLOW IVP SCH (09:04)
[2020-07-22] MEDS: Clopidogrel Bisulfate 75 MG TAB PO SCH (09:05)
[2020-07-22] MEDS: Famotidine 20 MG TAB PO SCH ×2 (09:05→20:01)
[2020-07-22] MEDS: Cholecalciferol 1,000 UNITS (25 MCG) TAB PO SCH (09:05)
[2020-07-22 11:40] VITALS: BMI 26.3
[2020-07-22] MEDS: HumaLOG 300 UNITS/3 ML VIAL SC PRN ×3 (12:25→20:15)
--- NOTE | 2020-07-22 15:30 | PDOC.HOSPP ---
- Subjective Encounter Date: 07/22/20 Subjective: Patient does not appear to be in any respiratory distress - Objective Vital Signs & Weight: Vital Signs (12 hours) Pulse Ox 07/22/20 08:00 88 L Weight Admit Weight 142 lb 1.6 oz Weight 144 lb Most Recent Monitor Data Heart Rate from ECG 97 NIBP 114/68 NIBP BP-Mean 83 Respiration from ECG 40 SpO2 78 I&O: 07/21/20 07/22/20 07/23/20 06:59 06:59 06:59 Intake Total 2355 2911 Output Total 3000 2400 Balance -645 511 Result Diagrams: 07/22/20 02:50 07/22/20 02:50 Additional Labs: Accuchecks 07/22/20 07/21/20 07/21/20 12:21 20:26 16:35 POC Glucose 355 H 289 H 291 H Hospitalist ROS - Medication Medications: Active Medications Generic Name Dose Route Start Last Admin Trade Name Freq PRN Reason Stop Dose Admin Ascorbic Acid 1,000 mg 07/17/20 09:00 07/22/20 09:03 Ascorbic Acid 500 Mg Chewable Tablet PO 1,000 mg DAILY ELOISE Administration Cholecalciferol 1,000 units 07/17/20 09:00 07/22/20 09:05 Cholecalciferol 1,000 Units (25 Mcg) Tab PO 1,000 units DAILY ELOISE Administration Clopidogrel Bisulfate 75 mg 07/16/20 09:00 07/22/20 09:05 Clopidogrel Bisulfate 75 Mg Tab PO 75 mg DAILY ELOISE Administration Dexamethasone 6 mg 07/16/20 09:00 07/22/20 09:04 Dexamethasone 4 Mg/Ml Vial SLOW IVP 6 mg DAILY ELOISE Administration Enoxaparin Sodium 40 mg 07/16/20 09:00 07/22/20 09:02 Enoxaparin Sodium 40 Mg/0.4 Ml Syringe SC 40 mg 0900 ELOISE Administration Famotidine 20 mg 07/15/20 21:00 07/22/20 09:05 Famotidine 20 Mg Tab PO 20 mg BID ELOISE Administration Sodium Chloride 1,000 mls @ 75 mls/hr 07/15/20 18:15 07/22/20 04:15 Normal Saline 0.9% IV 1,000 mls .[id number] ELOISE Administration Levetiracetam 500 mg/ Device 100 mls @ 200 mls/hr 07/15/20 21:00 07/22/20 09:01 IVPB 100 mls BID ELOISE Administration Insulin Glargine 15 units/ 0.15 mls @ 0 mls/hr 07/17/20 09:00 07/22/20 09:01 Miscellaneous Medication SC 0.15 mls QAM ELOISE Administration Insulin Human Lispro 0 units 07/15/20 18:12 07/22/20 12:25 Humalog 300 Units/3 Ml Vial SC 5 unit .MILD SLIDING SCALE PRN Administration Mild Correctional Scale - Exam General Appearance: awake alert ENT: normocephalic atraumatic Neck: supple, no JVD Heart: RRR Respiratory: normal chest expansion, no tachypnea Gastrointestinal: soft, non-tender, non-distended Neurological: cranial nerve grossly intact, no focal deficits Hosp A/P (1) COVID-19 virus detected Code(s): U07.1 - COVID-19 Status: Acute (2) DM type 2 (diabetes mellitus, type 2) Status: Acute Qualifiers: Diabetes 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 insulin 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: with alf use Diabetes mellitus complication status: without complication Qualified Code(s): E11.9 - Type 2 diabetes mellitus without complications; Z79.4 - [facility] (current) use of insulin (3) PNA (pneumonia) Code(s): J18.9 - PNEUMONIA, UNSPECIFIED ORGANISM Status: Acute Qualifiers: Pneumonia type: due to Pneumococcus Laterality: left Lung location: unspecified part of lung Qualified Code(s): J13 - Pneumonia due to Streptococcus pneumoniae (4) COPD (chronic obstructive pulmonary disease) Status: Chronic Qualifiers: Emphysema type: unspecified (5) Dementia Code(s): F03.90 - UNSPECIFIED DEMENTIA WITHOUT BEHAVIORAL DISTURBANCE Status: Chronic Qualifiers: Alzheimer's disease onset: unspecified onset Dementia behavioral disturbance: without behavioral disturbance (6) HTN (hypertension) Code(s): I10 - ESSENTIAL (PRIMARY) HYPERTENSION Status: Chronic Qualifiers: Hypertension type: essential hypertension Qualified Code(s): I10 - Essential (primary) hypertension - Plan The patient's oxygen requirement is stable since yesterday. She is still requiring over 90% FiO2's to sustain oxygen saturations in the low 90s. Pulmonology following. Status post convalescent plasma. Continue dexamethasone. The levels uncontrolled. Increase Lantus to 15 units twice daily. Enoxaparin for DVT prophylaxis.
--- NOTE | 2020-07-22 16:59 | PRG ---
DATE OF SERVICE: 07/22/[address] remains on high-flow. She is in no distress. Blood pressure 147/83, heart rate is in 80s. Appears reasonably comfortable, but she is not moving much. Hopefully, we will avoid intubation. We will continue to follow. Job ID: [id number]
[2020-07-23 04:15] LABS: Anion Gap 13 mmol/L (10-20); BUN (Urea Nitrogen) 12 mg/dL (9.8-20.1); Calc. Creatinine Clearance 101 mL/min (70-130); Calcium 8.5 mg/dL (7.8-10.44); Carbon Dioxide 26 mmol/L (23-31); Chloride 101 mmol/L (98-107); Estimated GFR-MDRD Greater than 90; Glucose 194 mg/dL (80-115); Potassium 3.7 mmol/L (3.5-5.1); Sodium 136 mmol/L (136-145)
[2020-07-23 04:19] LABS: Band 1 % (5-11); Eosinophils 1 % (0-10); Hemoglobin 11.4 g/dL (12.0-16.0); Hypochromia SLIGHT = 6-15 cells (100X) (0-5/hpf); Lymphocytes 13 % (21-51); MDiff Complete? YES; Mean Corpuscular HGB CONC 32.8 g/dL (32.0-36.0); Mean Corpuscular Hemoglobin 28.9 pg (27.0-31.0); Mean Platelet Volume 8.3 fL (7.4-10.4); Monocytes 8 % (0-10); Neutrophil 77 % (42-75); Platelet Count 445 thou/uL (130-400); Platelet Morphology Comment Appears Increased; RBC Distribution Width 13.2 % (11.5-14.5); Red Blood Cell (RBC) Count 3.96 mill/uL (4.20-5.40); White Blood Cell (WBC) Count 17.5 thou/uL (4.8-10.8)
[2020-07-23] MEDS: Sodium Chloride 0.9% 1,000 ML IV SCH ×2 (06:06→20:43)
[2020-07-23] MEDS: HumaLOG 300 UNITS/3 ML VIAL SC PRN ×2 (06:13→20:43)
--- NOTE | 2020-07-23 09:07 | PRG ---
DATE OF SERVICE: 07/23/2020 SUBJECTIVE: The patient is doing reasonably well on high-flow nasal cannula. OBJECTIVE: VITAL SIGNS: O2 saturation 92% on 88% oxygen, pulse 84, and blood pressure 146/69. HEENT: Unremarkable. NECK: No adenopathy or JVD. LUNGS: Crackles bilaterally. CARDIAC: S1 and S2, regular. ABDOMEN: Soft. EXTREMITIES: No edema. ASSESSMENT: COVID-19 pneumonia with acute hypoxic respiratory failure. PLANS: Supportive care with steroids and anticoagulation. Job ID: [id number]
[2020-07-23] MEDS: Insulin Glargine 15 UNITS in Pre-Filled Syringe 1 EACH SC SCH ×2 (09:55→20:43)
[2020-07-23] MEDS: Dexamethasone 4 mg/ml Vial SLOW IVP SCH (09:56)
[2020-07-23] MEDS: Enoxaparin Sodium 40 MG/0.4 ML SYRINGE SC SCH (09:56)
[2020-07-23] MEDS: Ascorbic Acid 500 mg Chewable Tablet PO SCH (09:58)
[2020-07-23] MEDS: Clopidogrel Bisulfate 75 MG TAB PO SCH (09:58)
[2020-07-23] MEDS: Famotidine 20 MG TAB PO SCH ×2 (09:58→20:28)
[2020-07-23] MEDS: Cholecalciferol 1,000 UNITS (25 MCG) TAB PO SCH (09:58)
[2020-07-23] MEDS: levETIRAcetam in NS 500 MG in Premix Bag 1 BAG IVPB SCH ×2 (09:59→20:28)
--- NOTE | 2020-07-23 20:55 | PDOC.HOSPP ---
- Subjective Encounter Date: 07/23/20 - Objective Vital Signs & Weight: Vital Signs (12 hours) Temp Pulse Ox 07/23/20 16:00 97.4 F L 07/23/20 13:09 90 L 07/23/20 12:00 99.1 F Weight Admit Weight 142 lb 1.6 oz Weight 144 lb Most Recent Monitor Data Heart Rate from ECG 89 NIBP 129/67 NIBP BP-Mean 87 Respiration from ECG 36 SpO2 92 I&O: 07/22/20 07/23/20 07/24/20 06:59 06:59 06:59 Intake Total 2911 3660 1920 Output Total 2400 3300 1250 Balance 511 360 670 Result Diagrams: 07/23/20 03:04 07/23/20 03:04 Additional Labs: Accuchecks 07/23/20 07/23/20 07/23/20 20:31 13:02 11:49 POC Glucose 315 H 367 H 293 H 07/23/20 06:08 POC Glucose 237 H Hospitalist ROS - Medication Medications: Active Medications Generic Name Dose Route Start Last Admin Trade Name Freq PRN Reason Stop Dose Admin Ascorbic Acid 1,000 mg 07/17/20 09:00 07/23/20 09:58 Ascorbic Acid 500 Mg Chewable Tablet PO 1,000 mg DAILY ELOISE Administration Cholecalciferol 1,000 units 07/17/20 09:00 07/23/20 09:58 Cholecalciferol 1,000 Units (25 Mcg) Tab PO 1,000 units DAILY ELOISE Administration Clopidogrel Bisulfate 75 mg 07/16/20 09:00 07/23/20 09:58 Clopidogrel Bisulfate 75 Mg Tab PO 75 mg DAILY ELOISE Administration Dexamethasone 6 mg 07/16/20 09:00 07/23/20 09:56 Dexamethasone 4 Mg/Ml Vial SLOW IVP 6 mg DAILY ELOISE Administration Enoxaparin Sodium 40 mg 07/16/20 09:00 07/23/20 09:56 Enoxaparin Sodium 40 Mg/0.4 Ml Syringe SC 40 mg 0900 ELOISE Administration Famotidine 20 mg 07/15/20 21:00 07/23/20 20:28 Famotidine 20 Mg Tab PO 20 mg BID ELOISE Administration Sodium Chloride 1,000 mls @ 75 mls/hr 07/15/20 18:15 07/23/20 20:43 Normal Saline 0.9% IV 1,000 mls .[id number] ELOISE Administration Levetiracetam 500 mg/ Device 100 mls @ 200 mls/hr 07/15/20 21:00 07/23/20 20:28 IVPB 100 mls BID ELOISE Administration Insulin Glargine 15 units/ 0.15 mls @ 0 mls/hr 07/17/20 09:00 07/23/20 09:55 Miscellaneous Medication SC 0.15 mls QAM ELOISE Administration Insulin Glargine 15 units/ 0.15 mls @ 0 mls/hr 07/22/20 21:00 07/23/20 20:43 Miscellaneous Medication SC 0.15 mls HS ELOISE Administration Insulin Human Lispro 0 units 07/15/20 18:12 07/23/20 20:43 Humalog 300 Units/3 Ml Vial SC 5 unit .MILD SLIDING SCALE PRN Administration Mild Correctional Scale - Exam General Appearance: awake alert ENT: normocephalic atraumatic Neck: supple, no JVD Heart: RRR Respiratory: normal chest expansion, no tachypnea Gastrointestinal: soft Extremities: no cyanosis, no clubbing Hosp A/P (1) COVID-19 virus detected Code(s): U07.1 - COVID-19 Status: Acute (2) DM type 2 (diabetes mellitus, type 2) Status: Acute Qualifiers: Diabetes mellitus fci insulin use: with fci use Diabetes mellitus complication status: without complication Qualified Code(s): E11.9 - Type 2 diabetes mellitus without complications; Z79.4 - termite exterminator helper (current) use of insulin (3) PNA (pneumonia) Code(s): J18.9 - PNEUMONIA, UNSPECIFIED ORGANISM Status: Acute Qualifiers: Pneumonia type: due to Pneumococcus Laterality: left Lung location: unspecified part of lung Qualified Code(s): J13 - Pneumonia due to Str eptococcus pneumoniae (4) COPD (chronic obstructive pulmonary disease) Status: Chronic Qualifiers: Emphysema type: unspecified (5) Dementia Code(s): F03.90 - UNSPECIFIED DEMENTIA WITHOUT BEHAVIORAL DISTURBANCE Status: Chronic Qualifiers: Alzheimer's disease onset: unspecified onset Dementia behavioral disturban ce: without behavioral disturbance (6) HTN (hypertension) Code(s): I10 - ESSENTIAL (PRIMARY) HYPERTENSION Status: Chronic Qualifiers: Hypertension type: essential hypertension Qualified Code(s): I10 - Essential (primary) hypertension - Plan The patient's oxygen requirement is stable since yesterday. O2 sat slightly improving. Pulmonology following. Status post convalescent plasma. Continue dexamethasone. The levels uncontrolled. Increase Lantus to 25 units nightly and 15 u daily. Enoxaparin for DVT prophylaxis.
[2020-07-23] MEDS: Insulin Glargine 25 UNITS in Pre-Filled Syringe 1 EACH SC SCH (22:08)
[2020-07-24 03:46] LABS: Band 2 % (5-11); Hemoglobin 11.1 g/dL (12.0-16.0); Lymphocytes 15 % (21-51); MDiff Complete? YES; Mean Corpuscular HGB CONC 32.4 g/dL (32.0-36.0); Mean Corpuscular Hemoglobin 28.5 pg (27.0-31.0); Mean Corpuscular Volume 88.1 fL (78.0-98.0); Mean Platelet Volume 7.9 fL (7.4-10.4); Metamyelocyte 1 % (0-0); Monocytes 6 % (0-10); Myelocyte 1 % (0-0); Neutrophil 75 % (42-75); Platelet Count 439 thou/uL (130-400); Platelet Morphology Comment Appears Increased; RBC Distribution Width 13.3 % (11.5-14.5); Red Blood Cell (RBC) Count 3.91 mill/uL (4.20-5.40); White Blood Cell (WBC) Count 15.4 thou/uL (4.8-10.8)
[2020-07-24 04:00] LABS: Anion Gap 13 mmol/L (10-20); BUN (Urea Nitrogen) 13 mg/dL (9.8-20.1); Calc. Creatinine Clearance 107 mL/min (70-130); Calcium 8.6 mg/dL (7.8-10.44); Carbon Dioxide 29 mmol/L (23-31); Chloride 103 mmol/L (98-107); Estimated GFR-MDRD Greater than 90; Glucose 207 mg/dL (80-115); Potassium 3.8 mmol/L (3.5-5.1); Sodium 141 mmol/L (136-145)
[2020-07-24] MEDS: HumaLOG 300 UNITS/3 ML VIAL SC PRN ×2 (05:31→16:35)
[2020-07-24] MEDS: levETIRAcetam in NS 500 MG in Premix Bag 1 BAG IVPB SCH ×2 (08:12→20:47)
[2020-07-24] MEDS: Famotidine 20 MG TAB PO SCH ×2 (08:12→20:47)
[2020-07-24] MEDS: Enoxaparin Sodium 40 MG/0.4 ML SYRINGE SC SCH (08:12)
[2020-07-24] MEDS: Ascorbic Acid 500 mg Chewable Tablet PO SCH (08:13)
[2020-07-24] MEDS: Clopidogrel Bisulfate 75 MG TAB PO SCH (08:13)
[2020-07-24] MEDS: Dexamethasone 4 mg/ml Vial SLOW IVP SCH (08:13)
[2020-07-24] MEDS: Cholecalciferol 1,000 UNITS (25 MCG) TAB PO SCH (08:13)
[2020-07-24] MEDS: Sodium Chloride 0.9% 1,000 ML IV SCH ×2 (08:18→23:00)
[2020-07-24] MEDS: Insulin Glargine 15 UNITS in Pre-Filled Syringe 1 EACH SC SCH (09:17)
--- NOTE | 2020-07-24 09:23 | PRG ---
DATE OF SERVICE: SUBJECTIVE: The patient remains in the IMCU on high-flow oxygen. OBJECTIVE: VITAL SIGNS: Her O2 saturations running around 93%, pulse 96, blood pressure 144/73. Physical exam is otherwise unchanged. LABORATORY DATA: White blood cell count 15.4, hematocrit 34.4, and platelet count 439. Sodium 141, potassium 3.8, BUN 13, creatinine 0.5, glucose 207. ASSESSMENT: COVID-19 pneumonia. PLAN: Continuing high-flow oxygen, anticoagulation, and steroids. Prognosis remains extremely poor. Job ID: [id number]
--- NOTE | 2020-07-24 16:11 | PDOC.HOSPP ---
- Subjective Encounter Date: 07/24/20 - Objective Vital Signs & Weight: Vital Signs (12 hours) Temp Pulse Ox 07/24/20 07:29 95 07/24/20 04:05 98.0 F Weight Admit Weight 142 lb 1.6 oz Weight 144 lb Most Recent Monitor Data Heart Rate from ECG 90 NIBP 141/73 NIBP BP-Mean 95 Respiration from ECG 35 SpO2 96 I&O: 07/23/20 07/24/20 07/25/20 06:59 06:59 06:59 Intake Total 3660 3195 Output Total 3300 2950 Balance 360 245 Result Diagrams: 07/24/20 03:15 07/24/20 03:15 Additional Labs: Accuchecks 07/24/20 07/23/20 07/23/20 05:18 20:31 17:21 POC Glucose 163 H 315 H 325 H Hospitalist ROS - Medication Medications: Active Medications Generic Name Dose Route Start Last Admin Trade Name Freq PRN Reason Stop Dose Admin Ascorbic Acid 1,000 mg 07/17/20 09:00 07/24/20 08:13 Ascorbic Acid 500 Mg Chewable Tablet PO 1,000 mg DAILY ELOISE Administration Cholecalciferol 1,000 units 07/17/20 09:00 07/24/20 08:13 Cholecalciferol 1,000 Units (25 Mcg) Tab PO 1,000 units DAILY ELOISE Administration Clopidogrel Bisulfate 75 mg 07/16/20 09:00 07/24/20 08:13 Clopidogrel Bisulfate 75 Mg Tab PO 75 mg DAILY ELOISE Administration Dexamethasone 6 mg 07/16/20 09:00 07/24/20 08:13 Dexamethasone 4 Mg/Ml Vial SLOW IVP 6 mg DAILY ELOISE Administration Enoxaparin Sodium 40 mg 07/16/20 09:00 07/24/20 08:12 Enoxaparin Sodium 40 Mg/0.4 Ml Syringe SC 40 mg 0900 ELOISE Administration Famotidine 20 mg 07/15/20 21:00 07/24/20 08:12 Famotidine 20 Mg Tab PO 20 mg BID ELOISE Administration Sodium Chloride 1,000 mls @ 75 mls/hr 07/15/20 18:15 07/24/20 08:18 Normal Saline 0.9% IV 1,000 mls .[id number] ELOISE Administration Levetiracetam 500 mg/ Device 100 mls @ 200 mls/hr 07/15/20 21:00 07/24/20 08:12 IVPB 100 mls BID ELOISE Administration Insulin Glargine 15 units/ 0.15 mls @ 0 mls/hr 07/17/20 09:00 07/24/20 09:17 Miscellaneous Medication SC 0.15 mls QAM ELOISE Administration Insulin Glargine 25 units/ 0.25 mls @ 0 mls/hr 07/23/20 21:00 07/23/20 22:08 Miscellaneous Medication SC Not Given HS ELOISE Insulin Human Lispro 0 units 07/15/20 18:12 07/24/20 05:31 Humalog 300 Units/3 Ml Vial SC 2 unit .MILD SLIDING SCALE PRN Administration Mild Correctional Scale - Exam General Appearance: awake alert ENT: normocephalic atraumatic Neck: no JVD Heart: RRR Respiratory: normal chest expansion, no tachypnea Neurological: cranial nerve grossly intact, no focal deficits Hosp A/P (1) COVID-19 virus detected Code(s): U07.1 - COVID-19 Status: Acute (2) DM type 2 (diabetes mellitus, type 2) Status: Acute Qualifiers: Diabetes mellitus manager terminal insulin use: with detention use Diabetes mellitus complication status: without complication Qualified Code(s): E11.9 - Type 2 diabetes mellitus without complications; Z79.4 - care home (current) use of insulin (3) PNA (pneumonia) Code(s): J18.9 - PNEUMONIA, UNSPECIFIED ORGANISM Status: Acute Qualifiers: Pneumonia type: due to Pneumococcus Laterality: left Lung location: unspecified part of lung Qualified Code(s): J13 - Pneumonia due to Streptococcus pneumoniae (4) COPD (chronic obstructive pulmonary disease) Status: Chronic Qualifiers: Emphysema type: unspecified (5) Dementia Code(s): F03.90 - UNSPECIFIED DEMENTIA WITHOUT BEHAVIORAL DISTURBANCE Status: Chronic Qualifiers: Alzheimer's disease onset: unspecified onset Dementia behavioral disturbance: without behavioral disturbance (6) HTN (hypertension) Code(s): I10 - ESSENTIAL (PRIMARY) HYPERTENSION Status: Chronic Qualifiers: Hypertension type: essential hypertension Qualified Code(s): I10 - Essential (primary) hypertension - Plan Stable on high flow nasal cannula Pulmonology following. Status post convalescent plasma. Continue dexamethasone. Continue Lantus to 25 units nightly and 15 u daily. Enoxaparin for DVT prophylaxis. Poor prognosis. Palliative care team to discuss goals of care with the family
[2020-07-24] MEDS: Insulin Glargine 25 UNITS in Pre-Filled Syringe 1 EACH SC SCH (21:10)
[2020-07-25] MEDS: Dexamethasone 4 mg/ml Vial SLOW IVP SCH (08:41)
[2020-07-25] MEDS: Ascorbic Acid 500 mg Chewable Tablet PO SCH (08:42)
[2020-07-25] MEDS: levETIRAcetam in NS 500 MG in Premix Bag 1 BAG IVPB SCH ×2 (08:42→21:37)
[2020-07-25] MEDS: Insulin Glargine 15 UNITS in Pre-Filled Syringe 1 EACH SC SCH (08:42)
[2020-07-25] MEDS: Cholecalciferol 1,000 UNITS (25 MCG) TAB PO SCH (08:42)
[2020-07-25] MEDS: Clopidogrel Bisulfate 75 MG TAB PO SCH (08:42)
[2020-07-25] MEDS: Enoxaparin Sodium 40 MG/0.4 ML SYRINGE SC SCH (08:42)
[2020-07-25] MEDS: Famotidine 20 MG TAB PO SCH ×2 (08:42→21:38)
--- NOTE | 2020-07-25 09:12 | PRG ---
DATE OF SERVICE: 07/25/2020 SUBJECTIVE: The patient is doing reasonably well. She is wearing high-flow nasal cannula. OBJECTIVE: VITAL SIGNS: On exam, O2 sats generally in the high 90s when she is wearing the oxygen. Pulse 76, blood pressure 140/83. HEENT: Unremarkable. NECK: No JVD. CHEST: Coarse rhonchi. CARDIAC: S1, S2. Regular. ABDOMEN: Soft. EXTREMITIES: No edema. ASSESSMENT: 1. COVID-19 pneumonia. 2. Acute hypoxic respiratory failure. PLAN: Continue high-flow oxygen. Anticoagulation and steroids. Job ID: [id number]
--- NOTE | 2020-07-25 14:32 | PDOC.FMACP ---
Advance Care Planning - Problem (1) Palliative care encounter Status: Acute Code(s): Z51.5 - ENCOUNTER FOR PALLIATIVE CARE (2) Acute respiratory failure Status: Acute Code(s): J96.00 - ACUTE RESPIRATORY FAILURE, UNSP W HYPOXIA OR HYPERCAPNIA Qualifiers: Respiratory failure complication: hypoxia Qualified Code(s): J96.01 - Acute respiratory failure with hypoxia (3) COVID-19 virus detected Status: Acute Code(s): U07.1 - COVID-19 (4) DM type 2 (diabetes mellitus, type 2) Status: Acute Qualifiers: Diabetes mellitus boat painter insulin use: with boat painter use Diabetes mellitus complication status: without complication Qualified Code(s): E11.9 - Type 2 diabetes mellitus without complications; Z79.4 - supervisor pipe finishing (current) use of insulin (5) Physical deconditioning Status: Acute Code(s): R53.81 - OTHER MALAISE (6) COPD (chronic obstructive pulmonary disease) Status: Chronic Qualifiers: Emphysema type: unspecified (7) Dementia Status: Chronic Code(s): F03.90 - UNSPECIFIED DEMENTIA WITHOUT BEHAVIORAL DISTURBANCE Qualifiers: Alzheimer's disease onset: unspecified onset Dementia behavioral disturb ance: without behavioral disturbance - Note Participants: patient, family, palliative care Summary: Palliative Care introduced Advanced Care Planning with family was discussed. The pattient has 4 children, three of whom are in contact with each other and patient. They have agreed to make Rajat the surrogate decision maker. The diagnosis, prognosis and goals of care were discussed. Appropriate forms and documentation to accomplish the goals of care were discussed. A face time call was done with patient and family. *DNAR status, consensus of children *Goal is hopeful for continued improvement and transition back to [facility] *Understanding of potential decline and consideration for hospice if she declines Palliative care will continue to support patient and family and revisit goal of care. Please also refer to Princess Thayer RNtraveling operator notes in note section Palliative care communicated with Dr Josue Time Spent (mins): 45
--- NOTE | 2020-07-25 18:25 | PDOC.HOSPP ---
- Subjective Encounter Date: 07/25/20 non-verbal - Objective Vital Signs & Weight: Vital Signs (12 hours) Pulse Ox 07/25/20 07:25 94 L Weight Admit Weight 142 lb 1.6 oz Weight 144 lb Most Recent Monitor Data Heart Rate from ECG 74 NIBP 129/73 NIBP BP-Mean 91 Respiration from ECG 27 SpO2 100 I&O: 07/24/20 07/25/20 07/26/20 06:59 06:59 06:59 Intake Total 3195 2630 1400 Output Total 2950 2550 1300 Balance 245 80 100 Result Diagrams: 07/24/20 03:15 07/24/20 03:15 Additional Labs: Accuchecks 07/25/20 07/25/20 07/24/20 18:06 06:03 20:53 POC Glucose 186 H 167 H 185 H 07/24/20 11:41 POC Glucose 181 H Hospitalist ROS - Medication Medications: Active Medications Generic Name Dose Route Start Last Admin Trade Name Freq PRN Reason Stop Dose Admin Ascorbic Acid 1,000 mg 07/17/20 09:00 07/25/20 08:42 Ascorbic Acid 500 Mg Chewable Tablet PO 1,000 mg DAILY ELOISE Administration Cholecalciferol 1,000 units 07/17/20 09:00 07/25/20 08:42 Cholecalciferol 1,000 Units (25 Mcg) Tab PO 1,000 units DAILY ELOISE Administration Clopidogrel Bisulfate 75 mg 07/16/20 09:00 07/25/20 08:42 Clopidogrel Bisulfate 75 Mg Tab PO 75 mg DAILY ELOISE Administration Dexamethasone 6 mg 07/16/20 09:00 07/25/20 08:41 Dexamethasone 4 Mg/Ml Vial SLOW IVP 6 mg DAILY ELOISE Administration Enoxaparin Sodium 40 mg 07/16/20 09:00 07/25/20 08:42 Enoxaparin Sodium 40 Mg/0.4 Ml Syringe SC 40 mg 0900 ELOISE Administration Famotidine 20 mg 07/15/20 21:00 07/25/20 08:42 Famotidine 20 Mg Tab PO 20 mg BID ELOISE Administration Sodium Chloride 1,000 mls @ 75 mls/hr 07/15/20 18:15 07/24/20 23:00 Normal Saline 0.9% IV 1,000 mls .[id number] ELOISE Administration Levetiracetam 500 mg/ Device 100 mls @ 200 mls/hr 07/15/20 21:00 07/25/20 08:42 IVPB 100 mls BID ELOISE Administration Insulin Glargine 15 units/ 0.15 mls @ 0 mls/hr 07/17/20 09:00 07/25/20 08:42 Miscellaneous Medication SC 0.15 mls QAM ELOISE Administration Insulin Glargine 25 units/ 0.25 mls @ 0 mls/hr 07/23/20 21:00 07/24/20 21:10 Miscellaneous Medication SC 0.25 mls HS ELOISE Administration Insulin Human Lispro 0 units 07/15/20 18:12 07/24/20 16:35 Humalog 300 Units/3 Ml Vial SC 4 unit .MILD SLIDING SCALE PRN Administration Mild Correctional Scale - Exam ENT: normocephalic atraumatic Neck: supple Heart: RRR Respiratory: normal chest expansion, no tachypnea Extremities: no cyanosis, no clubbing Hosp A/P (1) COVID-19 virus detected Code(s): U07.1 - COVID-19 Status: Acute (2) DM type 2 (diabetes mellitus, type 2) Status: Acute Qualifiers: Diabetes mellitus termite control service representative insulin use: with termite control service representative use Diabetes mellitus complication status: without complication Qualified Code(s): E11.9 - Type 2 diabetes mellitus without complications; Z79.4 - terminologist (current) use of insulin (3) PNA (pneumonia) Code(s): J18.9 - PNEUMONIA, UNSPECIFIED ORGANISM Status: Acute Qualifiers: Pneumonia type: due to Pneumococcus Laterality: left Lung location: unspecified part of lung Qualified Code(s): J13 - Pneumonia due to Streptococcus pneumoniae (4) COPD (chronic obstructive pulmonary disease) Status: Chronic Qualifiers: Emphysema type: unspecified (5) Dementia Code(s): F03.90 - UNSPECIFIED DEMENTIA WITHOUT BEHAVIORAL DISTURBANCE Status: Chronic Qualifiers: Alzheimer's disease onset: unspecified onset Dementia behavioral disturbance: without behavioral disturbance (6) HTN (hypertension) Code(s): I10 - ESSENTIAL (PRIMARY) HYPERTENSION Status: Chronic Qualifiers: Hypertension type: essential hypertension Qualified Code(s): I10 - Essential (primary) hypertension - Plan Stable on high flow nasal cannula Her oxygenation is not improving. Pulmonology following. Status post convalescent plasma. Continue dexamethasone. Continue Lantus to 25 units nightly and 15 u daily. Enoxaparin for DVT prophylaxis. Poor prognosis. Palliative care discussed the patient's condition with her family. She is now DNR and they are considering comfort care if her condition does not improve.
[2020-07-25] MEDS: Insulin Glargine 25 UNITS in Pre-Filled Syringe 1 EACH SC SCH (21:37)
[2020-07-25] MEDS: Sodium Chloride 0.9% 1,000 ML IV SCH (21:38)
[2020-07-26] MEDS: Enoxaparin Sodium 40 MG/0.4 ML SYRINGE SC SCH (10:08)
[2020-07-26] MEDS: Ascorbic Acid 500 mg Chewable Tablet PO SCH (10:09)
[2020-07-26] MEDS: Dexamethasone 4 mg/ml Vial SLOW IVP SCH (10:09)
[2020-07-26] MEDS: levETIRAcetam in NS 500 MG in Premix Bag 1 BAG IVPB SCH (10:09)
[2020-07-26] MEDS: Cholecalciferol 1,000 UNITS (25 MCG) TAB PO SCH (10:09)
[2020-07-26] MEDS: Clopidogrel Bisulfate 75 MG TAB PO SCH (10:09)
[2020-07-26] MEDS: Famotidine 20 MG TAB PO SCH ×2 (10:09→22:15)
[2020-07-26] MEDS: Insulin Glargine 15 UNITS in Pre-Filled Syringe 1 EACH SC SCH (10:11)
[2020-07-26] MEDS: Sodium Chloride 0.9% 1,000 ML IV SCH ×2 (10:52→14:18)
--- NOTE | 2020-07-26 11:56 | PRG ---
DATE OF SERVICE: 07/26/2020 SUBJECTIVE: A 70-year-old female who is a DNR. flow rate 70% FiO2, sats 100%. She . OBJECTIVE: VITAL SIGNS: Blood pressure 116/68, pulse 80, respirations 20, temperature 98. CHEST: No wheezing, no crackles. CARDIAC: Normal S1, S2. ASSESSMENT: Positive bronchopneumonia respiratory failure. PLAN: DNR. Continue steroids. Try and decrease FiO2 as possible. Supportive care. Job ID: [id number]
[2020-07-26] MEDS: HumaLOG 300 UNITS/3 ML VIAL SC PRN ×3 (13:18→22:15)
--- NOTE | 2020-07-26 15:54 | PDOC.HOSPP ---
- Subjective Encounter Date: 07/26/20 (f/u resp failure) Encounter Time: 15:52 Subjective: No overnight events. Pt with acute respiratory failure secondary to COVID pneumonia, on high flow oxygen. She remains on steroids, was not a candidate for other tx. In conjunction with Palliative Care, code status was changed to DNAR. When asked about pain, pt states she has pain. When asked where, she responds that she does not know. With other questions - she also states she does not know. - Objective Vital Signs & Weight: Vital Signs (12 hours) Temp Pulse Ox 07/26/20 13:05 97.4 F L 07/26/20 10:52 100 07/26/20 08:00 100 Weight Admit Weight 142 lb 1.6 oz Weight 144 lb Most Recent Monitor Data Heart Rate from ECG 120 NIBP 121/62 NIBP BP-Mean 81 Respiration from ECG 39 SpO2 86 I&O: 07/25/20 07/26/20 07/27/20 06:59 06:59 06:59 Intake Total 2630 3200 655 Output Total 2550 2525 600 Balance 80 675 55 Result Diagrams: 07/24/20 03:15 07/24/20 03:15 Additional Labs: Accuchecks 07/26/20 07/25/20 07/25/20 05:34 20:16 18:06 POC Glucose 113 H 190 H 186 H EKG Reviewed by me: Yes (tele - sinus 100's) Hospitalist ROS - Medication Medications: Active Medications Generic Name Dose Route Start Last Admin Trade Name Freq PRN Reason Stop Dose Admin Ascorbic Acid 1,000 mg 07/17/20 09:00 07/26/20 10:09 Ascorbic Acid 500 Mg Chewable Tablet PO 1,000 mg DAILY ELOISE Administration Cholecalciferol 1,000 units 07/17/20 09:00 07/26/20 10:09 Cholecalciferol 1,000 Units (25 Mcg) Tab PO 1,000 units DAILY ELOISE Administration Clopidogrel Bisulfate 75 mg 07/16/20 09:00 07/26/20 10:09 Clopidogrel Bisulfate 75 Mg Tab PO 75 mg DAILY ELOISE Administration Dexamethasone 6 mg 07/16/20 09:00 07/26/20 10:09 Dexamethasone 4 Mg/Ml Vial SLOW IVP 6 mg DAILY ELOISE Administration Enoxaparin Sodium 40 mg 07/16/20 09:00 07/26/20 10:08 Enoxaparin Sodium 40 Mg/0.4 Ml Syringe SC 40 mg 0900 ELOISE Administration Famotidine 20 mg 07/15/20 21:00 07/26/20 10:09 Famotidine 20 Mg Tab PO 20 mg BID ELOISE Administration Levetiracetam 500 mg/ Device 100 mls @ 200 mls/hr 07/15/20 21:00 07/26/20 10:09 IVPB 100 mls BID ELOISE Administration Insulin Glargine 15 units/ 0.15 mls @ 0 mls/hr 07/17/20 09:00 07/26/20 10:11 Miscellaneous Medication SC 0.15 mls QAM ELOISE Administration Insulin Glargine 25 units/ 0.25 mls @ 0 mls/hr 07/23/20 21:00 07/25/20 21:37 Miscellaneous Medication SC 0.25 mls HS ELOISE Administration Insulin Human Lispro 0 units 07/15/20 18:12 07/26/20 13:18 Humalog 300 Units/3 Ml Vial SC 6 unit .MILD SLIDING SCALE PRN Administration Mild Correctional Scale - Exam General Appearance: NAD Heart: RRR, no murmur Respiratory: no wheezes, no rales, no ronchi Respiratory - other findings: decreased breath sounds throughout Gastrointestinal: soft, non-tender, non-distended, normal bowel sounds Extremities: no cyanosis, no clubbing, no edema Psychiatric - other findings: not in distress Hosp A/P (1) Acute respiratory failure Code(s): J96.00 - ACUTE RESPIRATORY FAILURE, UNSP W HYPOXIA OR HYPERCAPNIA Status: Acute Qualifiers: Respiratory failure complication: hypoxia Qualified Code(s): J96.01 - Acute respiratory failure with hypoxia (2) COVID-19 virus detected Code(s): U07.1 - COVID-19 Status: Acute (3) PNA (pneumonia) Code(s): J18.9 - PNEUMONIA, UNSPECIFIED ORGANISM Status: Acute Qualifiers: Pneumonia type: due to unspecified organism Laterality: bilateral (4) DM type 2 (diabetes mellitus, type 2) Status: Chronic Qualifiers: Diabetes mellitus terminal manager insulin use: with alf use Diabetes mellitus complication status: without complication Qualified Code(s): E11.9 - Type 2 diabetes mellitus without complications; Z79.4 - terminal make up operator (current) use of insulin (5) GERD (gastroesophageal reflux disease) Code(s): K21.9 - GASTRO-ESOPHAGEAL REFLUX DISEASE WITHOUT ESOPHAGITIS Status: Chronic (6) Dementia Code(s): F03.90 - UNSPECIFIED DEMENTIA WITHOUT BEHAVIORAL DISTURBANCE Status: Chronic Qualifiers: Alzheimer's disease onset: unspecified onset Dementia behavioral disturbance: without behavioral disturbance (7) HTN (hypertension) Code(s): I10 - ESSENTIAL (PRIMARY) HYPERTENSION Status: Chronic Qualifiers: Hypertension type: essential hypertension Qualified Code(s): I10 - Essential (primary) hypertension - Plan Acute respiratory failure secondary to COVID pneumonia - appreciate Pulm and ID recommendations - continue steroids, high flow oxygen and wean as tolerated - stable for transfer to telemetry DM2 on insulin - blood sugars are lower today compared to prior days of being in the 200-300's - will d/c the night long-acting insulin and adjust the morning insulin tomorrow - continue current SSI Taking PO - change to oral keppra at home dosing Continue plavix dvt prophy - lovenox gi prophy - on famotidine code status - DNAR reviewed plan of care with RN, no questions or further needs overall prognosis is poor given age, comorbidities and current presentation
[2020-07-26] MEDS: levETIRAcetam 500 MG TAB PO SCH (22:15)
[2020-07-27 05:25] LABS: Anion Gap 14 mmol/L (10-20); BUN (Urea Nitrogen) 15 mg/dL (9.8-20.1); Calc. Creatinine Clearance 105 mL/min (70-130); Calcium 8.6 mg/dL (7.8-10.44); Carbon Dioxide 24 mmol/L (23-31); Chloride 106 mmol/L (98-107); Estimated GFR-MDRD Greater than 90; Glucose 134 mg/dL (80-115); Potassium 3.6 mmol/L (3.5-5.1); Sodium 140 mmol/L (136-145)
[2020-07-27 06:46] LABS: Band 11 % (5-11); Hemoglobin 11.4 g/dL (12.0-16.0); Lymphocytes 17 % (21-51); MDiff Complete? YES; Mean Corpuscular Hemoglobin 26.7 pg (27.0-31.0); Mean Corpuscular Volume 88.9 fL (78.0-98.0); Mean Platelet Volume 7.8 fL (7.4-10.4); Monocytes 4 % (0-10); Neutrophil 68 % (42-75); Platelet Count 452 thou/uL (130-400); RBC Distribution Width 13.9 % (11.5-14.5); RBC Morphology Normal; Red Blood Cell (RBC) Count 4.28 mill/uL (4.20-5.40); White Blood Cell (WBC) Count 18.7 thou/uL (4.8-10.8)
[2020-07-27] MEDS: Clopidogrel Bisulfate 75 MG TAB PO SCH (11:16)
[2020-07-27] MEDS: Enoxaparin Sodium 40 MG/0.4 ML SYRINGE SC SCH (11:16)
[2020-07-27] MEDS: Cholecalciferol 1,000 UNITS (25 MCG) TAB PO SCH (11:16)
[2020-07-27] MEDS: Famotidine 20 MG TAB PO SCH ×2 (11:16→21:00)
[2020-07-27] MEDS: levETIRAcetam 500 MG TAB PO SCH ×2 (11:16→21:00)
[2020-07-27] MEDS: Ascorbic Acid 500 mg Chewable Tablet PO SCH (11:16)
[2020-07-27] MEDS: Dexamethasone 4 mg/ml Vial SLOW IVP SCH (11:16)
[2020-07-27] MEDS: Insulin Glargine 15 UNITS in Pre-Filled Syringe 1 EACH SC SCH (11:17)
--- NOTE | 2020-07-27 16:11 | PDOC.HOSPP ---
- Subjective Encounter Date: 07/27/20 (f/u acute resp failure due to covid pna) Encounter Time: 16:10 Subjective: No overnight events noted by the nursing staff. The patient is without complaints. When asked what she would like - Dr. Zabala. - Objective Vital Signs & Weight: Vital Signs (12 hours) Temp Pulse Resp BP Pulse Ox 07/27/20 12:45 98 07/27/20 11:20 98.7 F 91 18 106/58 L 96 07/27/20 09:30 98.4 F 90 22 H 117/56 L 99 07/27/20 05:47 100 Weight Admit Weight 142 lb 1.6 oz Weight 144 lb Most Recent Monitor Data Heart Rate from ECG 83 NIBP 142/75 NIBP BP-Mean 97 Respiration from ECG 32 SpO2 100 I&O: 07/26/20 07/27/20 07/28/20 06:59 06:59 06:59 Intake Total 3200 2205 Output Total 2525 3050 Balance 675 -845 Result Diagrams: 07/27/20 04:38 07/27/20 04:38 Additional Labs: Accuchecks 07/27/20 07/26/20 07/26/20 11:19 21:04 20:33 POC Glucose 222 H 244 H 261 H EKG Reviewed by me: Yes (tele - sinus 80-90's) Hospitalist ROS - Medication Medications: Active Medications Generic Name Dose Route Start Last Admin Trade Name Freq PRN Reason Stop Dose Admin Ascorbic Acid 1,000 mg 07/17/20 09:00 07/27/20 11:16 Ascorbic Acid 500 Mg Chewable Tablet PO 1,000 mg DAILY ELOISE Administration Cholecalciferol 1,000 units 07/17/20 09:00 07/27/20 11:16 Cholecalciferol 1,000 Units (25 Mcg) Tab PO 1,000 units DAILY ELOISE Administration Clopidogrel Bisulfate 75 mg 07/16/20 09:00 07/27/20 11:16 Clopidogrel Bisulfate 75 Mg Tab PO 75 mg DAILY ELOISE Administration Dexamethasone 6 mg 07/16/20 09:00 07/27/20 11:16 Dexamethasone 4 Mg/Ml Vial SLOW IVP 6 mg DAILY ELOISE Administration Enoxaparin Sodium 40 mg 07/16/20 09:00 07/27/20 11:16 Enoxaparin Sodium 40 Mg/0.4 Ml Syringe SC 40 mg 0900 ELOISE Administration Famotidine 20 mg 07/15/20 21:00 07/27/20 11:16 Famotidine 20 Mg Tab PO 20 mg BID ELOISE Administration Insulin Human Lispro 0 units 07/15/20 18:12 07/26/20 22:15 Humalog 300 Units/3 Ml Vial SC 3 unit .MILD SLIDING SCALE PRN Administration Mild Correctional Scale Levetiracetam 500 mg 07/26/20 21:00 07/27/20 11:16 Levetiracetam 500 Mg Tab PO 500 mg BID ELOISE Administration - Exam General Appearance: NAD Heart: RRR, no murmur Respiratory: no wheezes, no rales, no ronchi Respiratory - other findings: distant breath sounds Gastrointestinal: soft, non-tender, non-distended, normal bowel sounds Psychiatric - other findings: awake, no apparent distress Hosp A/P (1) Acute respiratory failure Code(s): J96.00 - ACUTE RESPIRATORY FAILURE, UNSP W HYPOXIA OR HYPERCAPNIA Status: Acute Qualifiers: Respiratory failure complication: hypoxia Qualified Code(s): J96.01 - Acute respiratory failure with hypoxia (2) COVID-19 virus detected Code(s): U07.1 - COVID-19 Status: Acute (3) PNA (pneumonia) Code(s): J18.9 - PNEUMONIA, UNSPECIFIED ORGANISM Status: Acute Qualifiers: Pneumonia type: due to unspecified organism Laterality: bilateral (4) DM type 2 (diabetes mellitus, type 2) Status: Chronic Qualifiers: Diabetes mellitus residential insulin use: with export sales assistant use Diabetes mellitus complication status: without complication Qualified Code(s): E11.9 - Type 2 diabetes mellitus without complications; Z79.4 - hot dip plating supervisor (current) use of insulin (5) GERD (gastroesophageal reflux disease) Code(s): K21.9 - GASTRO-ESOPHAGEAL REFLUX DISEASE WITHOUT ESOPHAGITIS Status: Chronic (6) Dementia Code(s): F03.90 - UNSPECIFIED DEMENTIA WITHOUT BEHAVIORAL DISTURBANCE Status: Chronic Qualifiers: Alzheimer's disease onset: unspecified onset Dementia behavioral disturbance: without behavioral disturbance (7) HTN (hypertension) Code(s): I10 - ESSENTIAL (PRIMARY) HYPERTENSION Status: Chronic Qualifiers: Hypertension type: essential hypertension Qualified Code(s): I10 - Essential (primary) hypertension - Plan Acute respiratory failure secondary to COVID pneumonia - some improvement with less oxygen requirement, lower inflammatory markers (ferritin and crp) - continuing weaning oxygen - currently on 30LHFNC and 30% FiO2 - continue steroids - anticipate these can be d/c soon given the improvement DM2 on insulin - blood sugars are in the 200's - increase AM lantus to 20 units - continue current SSI Continue current home meds as ordered dvt prophy - lovenox gi prophy - on famotidine code status - DNAR reviewed plan of care with RN, no questions or further needs
[2020-07-27] MEDS: HumaLOG 300 UNITS/3 ML VIAL SC PRN (16:58)
[2020-07-28 05:13] LABS: #Basophils 0.1 thou/uL (0.0-0.2); #Eosinphils 0.1 thou/uL (0.0-0.7); #Lymphocytes 3.2 thou/uL (1.20-3.40); #Monocytes 1.1 thou/uL (0.11-0.59); #Neutrophils 11.4 thou/uL (1.40-6.50); %Basophils 0.4 % (0.0-1.0); %Eosinophils 0.8 % (0.0-10.0); %Lymphocytes 19.9 % (21.0-51.0); Hemoglobin 12.1 g/dL (12.0-16.0); Mean Corpuscular HGB CONC 30.8 g/dL (32.0-36.0); Mean Corpuscular Hemoglobin 27.6 pg (27.0-31.0); Mean Corpuscular Volume 89.8 fL (78.0-98.0); Mean Platelet Volume 7.8 fL (7.4-10.4); Platelet Count 445 thou/uL (130-400); RBC Distribution Width 14.1 % (11.5-14.5); Red Blood Cell (RBC) Count 4.38 mill/uL (4.20-5.40); White Blood Cell (WBC) Count 15.8 thou/uL (4.8-10.8)
--- NOTE | 2020-07-28 08:19 | PDOC.HOSPP ---
- Subjective Encounter Date: 07/28/20 (f/u acute resp failure due to covid) Encounter Time: 08:17 Subjective: Pt without complaints, responds 'I don't know' to most questions. Per RN - 9 beats of VT this morning. She has been removing HFNC and sats remain 88-90%. - Objective Vital Signs & Weight: Vital Signs (12 hours) Temp Pulse Resp BP Pulse Ox 07/28/20 05:38 99 07/28/20 03:43 99.5 F 88 15 129/69 96 07/27/20 21:10 98.7 F 89 24 H 117/58 L 100 Weight Admit Weight 142 lb 1.6 oz Weight 144 lb Most Recent Monitor Data Heart Rate from ECG 83 NIBP 142/75 NIBP BP-Mean 97 Respiration from ECG 32 SpO2 100 I&O: 07/27/20 07/28/20 07/29/20 06:59 06:59 06:59 Intake Total 2205 721.5 Output Total 3050 2050 Balance -845 -1328.5 Result Diagrams: 07/28/20 04:30 07/27/20 04:38 Additional Labs: Accuchecks 07/28/20 07/27/20 07/27/20 06:06 21:12 16:56 POC Glucose 142 H 218 H 263 H 07/27/20 11:19 POC Glucose 222 H EKG Reviewed by me: Yes (tele -9 beats VT this morning, otherwise sinus 70-80's) Hospitalist ROS - Medication Medications: Active Medications Generic Name Dose Route Start Last Admin Trade Name Freq PRN Reason Stop Dose Admin Ascorbic Acid 1,000 mg 07/17/20 09:00 07/27/20 11:16 Ascorbic Acid 500 Mg Chewable Tablet PO 1,000 mg DAILY ELOISE Administration Cholecalciferol 1,000 units 07/17/20 09:00 07/27/20 11:16 Cholecalciferol 1,000 Units (25 Mcg) Tab PO 1,000 units DAILY ELOISE Administration Clopidogrel Bisulfate 75 mg 07/16/20 09:00 07/27/20 11:16 Clopidogrel Bisulfate 75 Mg Tab PO 75 mg DAILY ELOISE Administration Enoxaparin Sodium 40 mg 07/16/20 09:00 07/27/20 11:16 Enoxaparin Sodium 40 Mg/0.4 Ml Syringe SC 40 mg 0900 ELOISE Administration Famotidine 20 mg 07/15/20 21:00 07/27/20 21:00 Famotidine 20 Mg Tab PO 20 mg BID ELOISE Administration Insulin Human Lispro 0 units 07/15/20 18:12 07/27/20 16:58 Humalog 300 Units/3 Ml Vial SC 4 unit .MILD SLIDING SCALE PRN Administration Mild Correctional Scale Levetiracetam 500 mg 07/26/20 21:00 07/27/20 21:00 Levetiracetam 500 Mg Tab PO 500 mg BID ELOISE Administration - Exam General Appearance: NAD Heart: RRR, no murmur Respiratory: no wheezes, no rales, no ronchi Gastrointestinal: soft, non-tender, non-distended, normal bowel sounds Extremities: no cyanosis, no clubbing, no edema Psychiatric: normal affect Psychiatric - other findings: affect consistent today and prior 2 days Hosp A/P (1) Acute respiratory failure Code(s): J96.00 - ACUTE RESPIRATORY FAILURE, UNSP W HYPOXIA OR HYPERCAPNIA Status: Acute Qualifiers: Respiratory failure complication: hypoxia Qualified Code(s): J96.01 - Acute respiratory failure with hypoxia (2) COVID-19 virus detected Code(s): U07.1 - COVID-19 Status: Acute (3) PNA (pneumonia) Code(s): J18.9 - PNEUMONIA, UNSPECIFIED ORGANISM Status: Acute Qualifiers: Pneumonia type: due to unspecified organism Laterality: bilateral (4) DM type 2 (diabetes mellitus, type 2) Status: Chronic Qualifiers: Diabetes mellitus equipment operator intermodal yard insulin use: with skilled nursing use Diabetes mellitus complication status: without complication Qualified Code(s): E11.9 - Type 2 diabetes mellitus without complications; Z79.4 - equipment operator intermodal yard (current) use of insulin (5) GERD (gastroesophageal reflux disease) Code(s): K21.9 - GASTRO-ESOPHAGEAL REFLUX DISEASE WITHOUT ESOPHAGITIS Status: Chronic (6) Dementia Code(s): F03.90 - UNSPECIFIED DEMENTIA WITHOUT BEHAVIORAL DISTURBANCE Status: Chronic Qualifiers: Alzheimer's disease onset: unspecified onset Dementia behavioral disturbance: without behavioral disturbance (7) HTN (hypertension) Code(s): I10 - ESSENTIAL (PRIMARY) HYPERTENSION Status: Chronic Qualifiers: Hypertension type: essential hypertension Qualified Code(s): I10 - Essential (primary) hypertension - Plan Acute respiratory failure secondary to COVID pneumonia - overall improved - requiring less oxygen, 2/3 of inflammatory markers are lower - d/c steroids as she has received 12 days of dexamethasone - wean oxygen as tolerated V Tach - check bmp and magnesium levels DM2 on insulin - - d/c steroids today, will lower lantus to 15 units once daily - continue SSI Continue current home meds as ordered dvt prophy - lovenox gi prophy - on famotidine code status - DNAR reviewed plan of care with RN, no questions or further needs
[2020-07-28] MEDS ORDERED: Insulin Glargine 20 UNITS in Pre-Filled Syringe 1 EACH SC SCH (09:00)
[2020-07-28] MEDS ORDERED: Insulin Glargine 15 UNITS in Pre-Filled Syringe 1 EACH SC SCH (09:30)
--- NOTE | 2020-07-28 10:11 | PRG ---
DATE OF SERVICE: 07/28/2020 SUBJECTIVE: The patient is doing better than at the end of the last week when I last saw her. She is down to 42% oxygen and her O2 saturations are running in the high 90s. OBJECTIVE: VITAL SIGNS: Temperature 99.5, pulse 88, respirations 15. HEENT: Unremarkable. NECK: No JVD. LUNGS: Fairly clear anteriorly. CARDIAC: S1 and S2. Regular. ABDOMEN: Soft. EXTREMITIES: No edema. LABORATORY DATA: White blood cell count 15.8, hematocrit 39.3, and platelet count 445. ASSESSMENT: 1. COVID-19 pneumonia. 2. Acute hypoxic respiratory failure secondary to COVID-19 pneumonia. PLAN: 1. Continue anticoagulation with Lovenox. 2. Steroids have been stopped by Dr. Chavarria. 3. I will wean oxygen as tolerated. No further pulmonary recommendations. We will sign off. Job ID: [id number]
[2020-07-28] MEDS: HumaLOG 300 UNITS/3 ML VIAL SC PRN (12:01)
[2020-07-28] MEDS: Cholecalciferol 1,000 UNITS (25 MCG) TAB PO SCH (12:13)
[2020-07-28] MEDS: Ascorbic Acid 500 mg Chewable Tablet PO SCH (12:13)
[2020-07-28] MEDS: Famotidine 20 MG TAB PO SCH ×2 (12:13→20:46)
[2020-07-28] MEDS: levETIRAcetam 500 MG TAB PO SCH ×2 (12:13→20:46)
[2020-07-28] MEDS: Enoxaparin Sodium 40 MG/0.4 ML SYRINGE SC SCH (12:13)
[2020-07-28] MEDS: Clopidogrel Bisulfate 75 MG TAB PO SCH (12:13)
[2020-07-28 12:58] LABS: Chloride 100 mmol/L (98-107); Potassium 3.8 mmol/L (3.5-5.1); Sodium 136 mmol/L (136-145)
[2020-07-28 12:59] LABS: Calcium 8.5 mg/dL (7.8-10.44); Glucose 273 mg/dL (80-115)
[2020-07-28 13:01] LABS: Anion Gap 14 mmol/L (10-20); Carbon Dioxide 26 mmol/L (23-31)
[2020-07-28 13:03] LABS: BUN (Urea Nitrogen) 15 mg/dL (9.8-20.1); Calc. Creatinine Clearance 93 mL/min (70-130); Estimated GFR-MDRD Greater than 90
[2020-07-28 13:05] LABS: Magnesium 1.8 mg/dL (1.6-2.6)
--- NOTE | 2020-07-28 15:57 | PDOC.PALFU ---
Palliative Care Follow-up Note Palliative care will sign off. Consult was for Advance Directive assist. Determined surrogate decision maker, confirmed DNAR status and assited with OOHDNAR.
[2020-07-29] MEDS: Famotidine 20 MG TAB PO SCH ×2 (09:03→20:22)
[2020-07-29] MEDS: levETIRAcetam 500 MG TAB PO SCH ×2 (09:03→20:22)
[2020-07-29] MEDS: Enoxaparin Sodium 40 MG/0.4 ML SYRINGE SC SCH (09:04)
[2020-07-29] MEDS: Cholecalciferol 1,000 UNITS (25 MCG) TAB PO SCH (09:04)
[2020-07-29] MEDS: Clopidogrel Bisulfate 75 MG TAB PO SCH (09:04)
[2020-07-29] MEDS: Insulin Glargine 15 UNITS in Pre-Filled Syringe 1 EACH SC SCH (09:04)
[2020-07-29] MEDS: Ascorbic Acid 500 mg Chewable Tablet PO SCH (09:04)
[2020-07-29 09:17] LABS: Prothrombin Time 12.9 sec (12.0-14.7)
[2020-07-29 09:28] LABS: Phosphorus 3.4 mg/dL (2.3-4.7)
[2020-07-29 09:30] LABS: ALT (SGPT) 42 U/L (8-55); AST (SGOT) 26 U/L (5-34); Albumin 2.9 g/dL (3.4-4.8); Alkaline Phosphatase 123 U/L (40-110); Anion Gap 15 mmol/L (10-20); BUN (Urea Nitrogen) 14 mg/dL (9.8-20.1); Bilirubin, Total 1.8 mg/dL (0.2-1.2); CRP (Inflammatory) 0.71 mg/dL (= or < 0.5); Calc. Creatinine Clearance 99 mL/min (70-130); Calcium 8.8 mg/dL (7.8-10.44); Carbon Dioxide 23 mmol/L (23-31); Chloride 105 mmol/L (98-107); Estimated GFR-MDRD Greater than 90; Globulin 3.5 g/dL (2.4-3.5); Glucose 152 mg/dL (80-115); Magnesium 1.9 mg/dL (1.6-2.6); Potassium 4.3 mmol/L (3.5-5.1); Protein, Total 6.4 g/dL (6.0-8.3); Sodium 139 mmol/L (136-145)
[2020-07-29] MEDS ORDERED: Magnesium 2 GM/50 ML 2 GM in Premix Bag 1 BAG IVPB SCH (12:45)
[2020-07-29] MEDS: HumaLOG 300 UNITS/3 ML VIAL SC PRN ×2 (12:59→18:17)
--- NOTE | 2020-07-29 13:34 | PDOC.HOSPP ---
- Subjective Encounter Date: 07/29/20 Encounter Time: 10:30 Subjective: Patient up in bed no complaints. She is currently on nasal cannula. - Objective Vital Signs & Weight: Vital Signs (12 hours) Temp Pulse Resp BP Pulse Ox 07/29/20 08:50 99.5 F 87 20 114/59 L 99 07/29/20 07:48 95 07/29/20 04:00 99.7 F H 88 16 118/64 100 Weight Admit Weight 142 lb 1.6 oz Weight 144 lb Most Recent Monitor Data Heart Rate from ECG 83 NIBP 142/75 NIBP BP-Mean 97 Respiration from ECG 32 SpO2 100 I&O: 07/28/20 07/29/20 07/30/20 06:59 06:59 06:59 Intake Total 721.5 720 Output Total 2050 1800 Balance -1328.5 -1080 Result Diagrams: 07/28/20 04:30 07/29/20 08:55 Additional Labs: Accuchecks 07/29/20 07/29/20 07/28/20 10:33 05:28 19:45 POC Glucose 282 H 120 H 211 H 07/28/20 17:23 POC Glucose 119 H Hospitalist ROS - Review of Systems Other: Unable to obtain. - Medication Medications: Active Medications Generic Name Dose Route Start Last Admin Trade Name Césarq PRN Reason Stop Dose Admin Ascorbic Acid 1,000 mg 07/17/20 09:00 07/29/20 09:04 Ascorbic Acid 500 Mg Chewable Tablet PO 1,000 mg DAILY ELOISE Administration Cholecalciferol 1,000 units 07/17/20 09:00 07/29/20 09:04 Cholecalciferol 1,000 Units (25 Mcg) Tab PO 1,000 units DAILY ELOISE Administration Clopidogrel Bisulfate 75 mg 07/16/20 09:00 07/29/20 09:04 Clopidogrel Bisulfate 75 Mg Tab PO 75 mg DAILY ELOISE Administration Enoxaparin Sodium 40 mg 07/16/20 09:00 07/29/20 09:04 Enoxaparin Sodium 40 Mg/0.4 Ml Syringe SC 40 mg 0900 ELOISE Administration Famotidine 20 mg 07/15/20 21:00 07/29/20 09:03 Famotidine 20 Mg Tab PO 20 mg BID ELOISE Administration Insulin Glargine 15 units/ 0.15 mls @ 0 mls/hr 07/29/20 09:00 07/29/20 09:04 Miscellaneous Medication SC 0.15 mls QAM ELOISE Administration Magnesium Sulfate 2 gm/ Device 50 mls @ 50 mls/hr 07/29/20 12:45 07/29/20 12:59 IVPB 07/29/20 14:45 50 mls NOW ELOISE Administration Insulin Human Lispro 0 units 07/15/20 18:12 07/29/20 12:59 Humalog 300 Units/3 Ml Vial SC 4 unit .MILD SLIDING SCALE PRN Administration Mild Correctional Scale Levetiracetam 500 mg 07/26/20 21:00 07/29/20 09:03 Levetiracetam 500 Mg Tab PO 500 mg BID ELOISE Administration - Exam Neck: negative: supple, symmetric, no JVD, no thyromegaly, no lymphadenopathy, no carotid bruit, JVD Heart: negative: RRR, no murmur, no gallops, no rubs, normal peripheral pulses, irregular, diminshed peripheral pulses, murmur present, II/IV, III/IV Respiratory: negative: CTAB, no wheezes, no rales, no ronchi, normal chest expansion, no tachypnea, normal percussion, rales, rhonchi, tachypneic, wheezes Gastrointestinal: negative: soft, non-tender, non-distended, normal bowel so unds, no palpable masses, no hepatomegaly, no splenomegaly, no bruit, no guarding, no rigidity, tender to palpation, distended, diminished bowl sounds, voluntary guarding Hosp A/P (1) Acute respiratory failure Code(s): J96.00 - ACUTE RESPIRATORY FAILURE, UNSP W HYPOXIA OR HYPERCAPNIA Status: Acute Qualifiers: Respiratory failure complication: hypoxia Qualified Code(s): J96.01 - Acute respiratory failure with hypoxia (2) COVID-19 virus detected Code(s): U07.1 - COVID-19 Status: Acute (3) DM type 2 (diabetes mellitus, type 2) Status: Chronic Qualifiers: Diabetes mellitus care home insulin 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: with 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 back to her [facility]. She is completed her steroids. We will continue DVT prophylaxis.
--- NOTE | 2020-07-29 15:09 | PDOC.PALFU ---
Palliative Care Follow-up Note Palliative care will sign off as surrogate decision maker identified, DNAR completed, and OOHDNAR prepared and placed on chart for physician signature. If our team can assist in the future with Goal of Care, complex decision making, prognosis disease assist, or family support please reconsult our team. Thnak you for this very appropriate consult and allowing us to participate in the care of Ms Lane.
[2020-07-30] MEDS: levETIRAcetam 500 MG TAB PO SCH (10:05)
[2020-07-30] MEDS: Famotidine 20 MG TAB PO SCH (10:05)
[2020-07-30] MEDS: Ascorbic Acid 500 mg Chewable Tablet PO SCH (10:05)
[2020-07-30] MEDS: Enoxaparin Sodium 40 MG/0.4 ML SYRINGE SC SCH (10:06)
[2020-07-30] MEDS: Clopidogrel Bisulfate 75 MG TAB PO SCH (10:06)
[2020-07-30] MEDS: Cholecalciferol 1,000 UNITS (25 MCG) TAB PO SCH (10:06)
[2020-07-30] MEDS: Insulin Glargine 15 UNITS in Pre-Filled Syringe 1 EACH SC SCH (10:06)
[2020-07-30 11:20] VITALS: TEMP 99.2
[2020-07-30] MEDS: HumaLOG 300 UNITS/3 ML VIAL SC PRN (12:06)
[2020-07-30 13:32] VITALS: BP 114/74
--- NOTE | 2020-07-31 02:40 | DIS ---
DATE OF ADMISSION: 07/15/2020 DATE OF DISCHARGE: 07/30/2020 DISCHARGE DIAGNOSES: 1. Acute hypoxic respiratory failure. 2. COVID pneumonia. 3. Diabetes. 4. Physical deconditioning. 5. Hypertension. HOSPITAL COURSE: The patient is a 70-year-old female, who initially presented to the hospital on 07/16 with shortness of breath and was found to be hypoxic. The patient at that time was COVID positive. She was put on nasal cannula and was admitted to the hospital. She was seen by Pulmonary. The patient was started on steroids and also on anticoagulation. The patient initially was on high flow and was not a candidate for Remdesivir at that time. The patient did receive convalescent plasma. She continued to improve. Her high-flow was transferred to nasal cannula and she has been watched 24 hours on nasal cannula, has been 96% on 2 L. HOME MEDICATIONS: Will be resumed. She has completed a dose of steroids and antibiotics. Her home medications will be: 1. Vitamin D3 1000 units daily. 2. Vitamin C 1000 mg daily. 3. Tylenol as needed. 4. Keppra 500 mg b.i.d. 5. Plavix 75 mg daily. 6. Insulin 30 units daily. 7. Insulin lispro 5 units b.i.d. 8. Metformin 1000 b.i.d. 9. Atorvastatin 40 mg daily. PHYSICAL EXAMINATION: VITAL SIGNS: On discharge are as of the following, temperature 99.2, pulse 85, respiratory rate 19, oxygen saturation 96% on room air, blood pressure 114/74. GENERAL: She is awake, does not speak much. CV: S1, S2 present. No murmurs, rubs, or gallops. LUNGS: Clear to auscultation. No rhonchi or wheezes noted. ABDOMEN: Soft, nontender. Bowel sounds are present x2. Again, she will be discharged back to her group home. Job ID: [id number]
== END 2020-07-30 14:20 | DRG 871 ==
LOC: ERS 14:21 → ERHOLD 17:05 → IMCU/EMU 07-16 05:07 → 2SW 07-26 21:08
PROVIDERS: ADMIT Internal Medicine; ATTEND Internal Medicine
PROC: 8E0ZXY6 Isolation (ICD-10-PCS; 2020-07-15)
PROC: XW13325 Transfusion of Convalescent Plasma (Nonautologous) into Peripheral Vein, Percutaneous Approach, New Technology Group 5 (ICD-10-PCS; principal; 2020-07-16)
DX: A41.89 Other specified sepsis (principal); U07.1 COVID-19; J12.89 Other viral pneumonia; J96.01 Acute respiratory failure with hypoxia; I47.2 Ventricular tachycardia; Z66 Do not resuscitate; K21.9 Gastro-esophageal reflux disease without esophagitis; E78.5 Hyperlipidemia, unspecified; I10 Essential (primary) hypertension; M19.90 Unspecified osteoarthritis, unspecified site; J44.9 Chronic obstructive pulmonary disease, unspecified; E11.9 Type 2 diabetes mellitus without complications; F03.90 Unspecified dementia, unspecified severity, without behavioral disturbance, psychotic disturbance, mood disturbance, and anxiety; E86.0 Dehydration; R53.81 Other malaise; G40.909 Epilepsy, unspecified, not intractable, without status epilepticus; Z86.73 Personal history of transient ischemic attack (TIA), and cerebral infarction without residual deficits; Z98.51 Tubal ligation status; Z90.49 Acquired absence of other specified parts of digestive tract; Z88.0 Allergy status to penicillin; Z88.8 Allergy status to other drugs, medicaments and biological substances; Z79.4 Long term (current) use of insulin
CPT/HCPCS: 36415; 36416; 71045; 80048; 80053; 82728; 82805; 83605; 83615; 83735; 84100; 84484; 85025; 85379; 85610; 86140; 86850; 86900; 86901; 87040; 96365; 96366; 96367; 96375; J0456; J0692; J0696; J1100; J1650; J1815; J1953; J2185; J2405; J3370; J3475; J3490; J7050

== ENCOUNTER 2020-08-04 01:51 | Inpatient (IN) | payer MEDICARE, OTHER ==
[2020-08-04] MEDS ORDERED: Acetaminophen 500 MG TAB ONE (02:38)
[2020-08-04] MEDS ORDERED: Cefepime 1 GM VIAL ONE (02:38)
[2020-08-04 02:53] LABS: Bacteria/HPF None Seen HPF (None Seen); Bilirubin Negative (Negative); Blood, Urine Negative (Negative); Clarity Turbid (Clear); Glucose, Urine (Dipstick) Normal (Negative); Ketone, Urine 10 mg/dL (Negative); Leukocyte Negative Leu/uL (Negative); Nitrite Negative (Negative); Protein, Urine (Dipstick) 30 mg/dL (Neg-Trace); Specific Gravity, Urine 1.035 (1.002-1.036); Squamous Epithelial 0-3 HPF (0-3); WBC/HPF 0-3 HPF (0-3)
[2020-08-04 03:11] LABS: Hemoglobin 15.7 g/dL (12.0-16.0); Mean Corpuscular Hemoglobin 28.9 pg (27.0-31.0); Mean Corpuscular Volume 90.1 fL (78.0-98.0); Mean Platelet Volume 7.6 fL (7.4-10.4); Platelet Count 442 thou/uL (130-400); Red Blood Cell (RBC) Count 5.45 mill/uL (4.20-5.40); White Blood Cell (WBC) Count 30.2 thou/uL (4.8-10.8)
[2020-08-04 03:22] LABS: Band 15 % (5-11); Lymphocytes 3 % (21-51); MDiff Complete? YES; Monocytes 10 % (0-10); Neutrophil 72 % (42-75); Platelet Morphology Comment Appears Increased
[2020-08-04 03:31] LABS: ALT (SGPT) 25 U/L (8-55); AST (SGOT) 43 U/L (5-34); Albumin 3.7 g/dL (3.4-4.8); Alkaline Phosphatase 123 U/L (40-110); Anion Gap 29 mmol/L (10-20); BUN (Urea Nitrogen) 26 mg/dL (9.8-20.1); Calc. Creatinine Clearance 0 mL/min (70-130); Calcium 9.6 mg/dL (7.8-10.44); Carbon Dioxide 15 mmol/L (23-31); Chloride 106 mmol/L (98-107); Estimated GFR-MDRD 43; Globulin 4.1 g/dL (2.4-3.5); Glucose 153 mg/dL (80-115); Protein, Total 7.8 g/dL (6.0-8.3); Sodium 146 mmol/L (136-145)
[2020-08-04] MEDS ORDERED: Acetaminophen 650 MG Suppository PR PRN (04:26)
[2020-08-04] MEDS ORDERED: Guaifenesin DM 100-10/5 ML UDCUP PO PRN (04:26)
[2020-08-04] MEDS ORDERED: HYDROcodone/Acetaminophen 5/325 mg Tablet PO PRN (04:26)
[2020-08-04] MEDS ORDERED: Acetaminophen 325 MG TAB PO PRN ×2 (04:26→17:32)
[2020-08-04] MEDS ORDERED: Sodium Chloride 0.9% 1,000 ML IV SCH (04:30)
--- NOTE | 2020-08-04 04:30 | PDOC.HHP ---
Hospitalist HPI - History of Present Illness tachyrdia tachypnea History of Present Illness: Case of an 70y/o female with pmhx of dementia seizures, hx of cva, hld copd, ba, and dm who was recently discharge on the 07/31/20 secondary to covid 19 was brought to hospital due to worsening condition. history is limited since patient has dementia does not understand why she is in the hospital. apparently since discharge patient has been deteriorating, her respiratory status has worsening and patient is having intractable diarrhea. at the ed patient was evaluated and found on severe sepsis and hospitalist was called for further evaluation and management. Hospitalist ROS - Review of Systems ROS unobtainable: due to mental status Hospitalist History - Past Surgical History Other Surgical History: unable to asses due to mental status - Family History Other Family History: unable to asses due to mental status - Social History Other Social History: unable to asses due to mental status - Exam General Appearance: ill appearing Eye: PERRL, anicteric sclera ENT: normocephalic atraumatic, no oropharyngeal lesions, dry oral mucosa Neck: supple, symmetric, no JVD Heart: no murmur, no gallops, no rubs Heart - other findings: tachycardia Respiratory: CTAB, no wheezes, no rales, no ronchi Gastrointestinal: soft, non-distended, normal bowel sounds, tender to palpation Extremities: no cyanosis, no clubbing, 1+ LE edema Skin: normal turgor, no lesions, no rashes Neurological: cranial nerve grossly intact, normal sensation to touch, no focal deficits Musculoskeletal: normal tone, no muscle wasting Psychiatric: not oriented Hospitalist Results - Labs Result Diagrams: 08/04/20 03:00 08/04/20 03:00 Lab results: WBC 30.2 thou/uL (4.8-10.8) H 08/04/20 03:00 Hgb 15.7 g/dL (12.0-16.0) 08/04/20 03:00 Hct 49.1 % (36.0-47.0) H 08/04/20 03:00 MCV 90.1 fL (78.0-98.0) 08/04/20 03:00 Plt Count 442 thou/uL (130-400) H 08/04/20 03:00 Band Neuts % (Manual) 15 % (5-11) H 08/04/20 03:00 Sodium 146 mmol/L (136-145) H 08/04/20 03:00 Potassium 4.0 mmol/L (3.5-5.1) 08/04/20 03:00 Chloride 106 mmol/L (98-107) 08/04/20 03:00 Carbon Dioxide 15 mmol/L (23-31) L 08/04/20 03:00 BUN 26 mg/dL (9.8-20.1) H 08/04/20 03:00 Creatinine 1.23 mg/dL (0.6-1.1) H 08/04/20 03:00 Glucose 153 mg/dL (80-115) H 08/04/20 03:00 Lactic Acid 7.1 mmol/L (0.5-2.2) H* 08/04/20 03:09 Calcium 9.6 mg/dL (7.8-10.44) 08/04/20 03:00 Total Bilirubin 4.0 mg/dL (0.2-1.2) H 08/04/20 03:00 AST 43 U/L (5-34) H 08/04/20 03:00 ALT 25 U/L (8-55) 08/04/20 03:00 Alkaline Phosphatase 123 U/L (40-110) H 08/04/20 03:00 CK-MB (CK-2) 1.0 ng/mL (0-6.6) 08/04/20 03:00 Troponin I 0.041 ng/mL (< 0.028) H 08/04/20 03:00 B-Natriuretic Peptide 65.9 pg/mL (0-100) 08/04/20 03:00 Serum Total Protein 7.8 g/dL (6.0-8.3) 08/04/20 03:00 Albumin 3.7 g/dL (3.4-4.8) 08/04/20 03:00 Urine Ketones 10 mg/dL (Negative) A 08/04/20 02:30 Urine Blood Negative (Negative) 08/04/20 02:30 Urine Nitrite Negative (Negative) 08/04/20 02:30 Ur Leukocyte Esterase Negative Mohit/uL (Negative) 08/04/20 02:30 Urine RBC 4-6 HPF (0-3) A 08/04/20 02:30 Urine WBC 0-3 HPF (0-3) 08/04/20 02:30 Ur Squamous Epith Cells 0-3 HPF (0-3) 08/04/20 02:30 Urine Bacteria None Seen HPF (None Seen) 08/04/20 02:30 Hospitalist H&P A/P - Problem (1) Pneumonia due to COVID-19 virus Code(s): U07.1 - COVID-19; J12.89 - OTHER VIRAL PNEUMONIA Status: Acute (2) LETI (acute kidney injury) Code(s): N17.9 - ACUTE KIDNEY FAILURE, UNSPECIFIED Status: Acute (3) COPD (chronic obstructive pulmonary disease) Status: Chronic Qualifiers: Emphysema type: unspecified (4) DM type 2 (diabetes mellitus, type 2) Status: Chronic Qualifiers: 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: with 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 Diabetes mellitus complication status: without complication Qualified Code(s): E11.9 - Type 2 diabetes mellitus without complications; Z79.4 - alf (current) use of insulin (5) Dementia Code(s): F03.90 - UNSPECIFIED DEMENTIA WITHOUT BEHAVIORAL DISTURBANCE Status: Chronic Qualifiers: Alzheimer's disease onset: unspecified onset Dementia behavioral disturbance: without behavioral disturbance (6) GERD (gastroesophageal reflux disease) Code(s): K21.9 - GASTRO-ESOPHAGEAL REFLUX DISEASE WITHOUT ESOPHAGITIS Status: Chronic (7) HTN (hypertension) Code(s): I10 - ESSENTIAL (PRIMARY) HYPERTENSION Status: Chronic Qualifiers: Hypertension type: essential hypertension Qualified Code(s): I10 - Essential (primary) hypertension (8) Diarrhea Code(s): R19.7 - DIARRHEA, UNSPECIFIED Status: Acute - Plan Plan: case of an 70y/o female with the stated pmhx who present to hospital with severe sepsis likely to covid 19 severe sepsis / covid 19 pneumonia - elevated WBC + elevated LA + hypotension with renal failure cxr with worsening infiltrates and severe diarrhea - sepsis bundles started ivfs given cultures taken started on broad spectrum abx - continue w vanc + cefepime - f/u LA - F/u cultures -u/a clean - cxr seen by me w worsening b/l infiltrates, pending official report - isolation protocol - f/u inflammation makers - decadron iv - oxygen supplementation - id consult - crit care consult - sepsis could be secondary to below diarrhea - profuse watery, could be either due to covid 19 vs c diff - will send cultures for campylobacter + e. coli - wbc in stool - cdiff evaluation leti - likely secondary to lost of volume due to diarrhea - will hydrate w ns - f/u renal function and u/o htn - holding bp medication due to sepsis seizures - continue home meds hx of cva - continue statin and plavix for secondary prevention dm acc+ss
[2020-08-04] MEDS ORDERED: Dextrose 50% Abboject 50 ML SYRINGE SLOW IVP PRN ×2 (04:44→17:48)
[2020-08-04] MEDS ORDERED: Dextrose 5% in Water 1,000 ML IV PRN ×2 (04:44→17:48)
[2020-08-04] MEDS ORDERED: HumaLOG 300 UNITS/3 ML VIAL SC PRN ×2 (04:44→17:48)
[2020-08-04] MEDS ORDERED: Vancomycin 1 GM/200 ML BAG ONE (04:51)
[2020-08-04] MEDS: Sodium Chloride 0.9% 1,000 ML IV SCH ×3 (07:55→21:02)
--- NOTE | 2020-08-04 08:10 | RAD ---
RADIOGRAPH CHEST 1 VIEW: DATE: 08/04/2020 TIME: 2:30 AM HISTORY: 70-year-old female with COVID-19 pneumonia follow-up COMPARISON: 07/18/2020 FINDINGS: Multifocal patchy groundglass infiltrates at bilateral upper, mid, and lower lung zones. Interval imp rovement at the left mid and lower lung zones. Normal worsening at right midlung zone. No cardiomegaly or pneumothorax. IMPRESSION: COVID-19 viral pneumonia bilaterally, with improvement in some areas and worsening in others.
[2020-08-04 08:59] LABS: Lactic Acid 7.1 mmol/L (0.5-2.2); Troponin I 0.312 ng/mL (< 0.028)
[2020-08-04 10:24] LABS: Troponin I 0.052 ng/mL (< 0.028)
[2020-08-04] MEDS: Clopidogrel Bisulfate 75 MG TAB PO SCH (10:56)
[2020-08-04] MEDS: Dexamethasone 4 mg/ml Vial SLOW IVP SCH (10:56)
[2020-08-04] MEDS: Famotidine 20 MG TAB PO SCH (10:56)
[2020-08-04] MEDS ORDERED: Dexamethasone 10 MG/ML VIAL ONE (11:37)
[2020-08-04] MEDS ORDERED: Famotidine 20 MG TAB ONE (11:37)
[2020-08-04] MEDS ORDERED: Enoxaparin Sodium 40 MG/0.4 ML SYRINGE ONE (11:37)
[2020-08-04] MEDS ORDERED: Clopidogrel Bisulfate 75 MG TAB ONE (11:37)
[2020-08-04] MEDS: Enoxaparin Sodium 40 MG/0.4 ML SYRINGE SC SCH (12:21)
[2020-08-04] MEDS: levETIRAcetam 500 MG TAB PO SCH ×2 (12:47→21:03)
--- NOTE | 2020-08-04 17:36 | PDOC.HOSPP ---
- Subjective Encounter Date: 08/04/20 Subjective: Pt was admitted earlier today due to diarrhea and presumed sepsis. Pt has dementia and is unable to answer questions appropriately. - Objective Vital Signs & Weight: Weight Weight 129 lb 9.756 oz Most Recent Monitor Data Heart Rate from ECG 100 NIBP 137/63 NIBP BP-Mean 87 Respiration from ECG 19 SpO2 100 Result Diagrams: 08/04/20 03:00 08/04/20 03:00 Additional Labs: Accuchecks 08/04/20 08/04/20 17:19 11:45 POC Glucose 249 H 249 H Hospitalist ROS - Review of Systems ROS unobtainable: due to mental status Gastrointestinal: reports: diarrhea - Medication Medications: Active Medications Generic Name Dose Route Start Last Admin Trade Name Freq PRN Reason Stop Dose Admin Clopidogrel Bisulfate 75 mg 08/04/20 09:00 08/04/20 10:56 Clopidogrel Bisulfate 75 Mg Tab PO 75 mg DAILY ELOISE Administration Dexamethasone 6 mg 08/04/20 09:00 08/04/20 10:56 Dexamethasone 4 Mg/Ml Vial SLOW IVP 6 mg DAILY ELOISE Administration Enoxaparin Sodium 40 mg 08/04/20 09:00 08/04/20 12:21 Enoxaparin Sodium 40 Mg/0.4 Ml Syringe SC 40 mg 0900 ELOISE Administration Famotidine 20 mg 08/04/20 09:00 08/04/20 10:56 Famotidine 20 Mg Tab PO 20 mg DAILY ELOISE Administration Sodium Chloride 1,000 mls @ 125 mls/hr 08/04/20 06:22 08/04/20 15:59 Normal Saline 0.9% IV Not Given .Q8H ELOISE Levetiracetam 500 mg 08/04/20 09:00 08/04/20 12:47 Levetiracetam 500 Mg Tab PO 500 mg BID ELOISE Administration - Exam General Appearance: ill appearing Eye: PERRL, anicteric sclera ENT: normocephalic atraumatic, dry oral mucosa Neck: supple, symmetric, no JVD, no thyromegaly Heart: RRR, no murmur, no gallops, normal peripheral pulses Respiratory: CTAB, no wheezes, no rales, no ronchi Gastrointestinal: soft, non-tender, non-distended, normal bowel sounds Extremities: no cyanosis, no clubbing, no edema Skin: normal turgor, no lesions, no rashes Neurological - other findings: Unable to assess Musculoskeletal: normal strength, no muscle wasting Psychiatric - other findings: Unable to assess Hosp A/P (1) Elevated troponin Code(s): R77.8 - OTHER SPECIFIED ABNORMALITIES OF PLASMA PROTEINS Status: Acute Plan: Likely Type 2 MA from sepsis. Have consulted cards, will f/u with their recs (2) Sepsis Code(s): A41.9 - SEPSIS, UNSPECIFIED ORGANISM Status: Acute Qualifiers: Sepsis type: sepsis due to unspecified organism Plan: As evidenced by leukocytosis and met and lactic acidosis. Likely from diarrhea. Covid infection was over 2 weeks ago. Cont current abx. F/u with cx results. (3) LETI (acute kidney injury) Code(s): N17.9 - ACUTE KIDNEY FAILURE, UNSPECIFIED Status: Acute Plan: Likely from GI loss. Cont IV hydration. Monitor Cr. (4) Diarrhea Code(s): R19.7 - DIARRHEA, UNSPECIFIED Status: Acute Qualifiers: Diarrhea type: unspecified type Qualified Code(s): R19.7 - Diarrhea, unspecified Plan: Possibly from C. diff. Will f/u with test results. Start Oral vanc and lacto bacillus. (5) Pneumonia due to COVID-19 virus Code(s): U07.1 - COVID-19; J12.89 - OTHER VIRAL PNEUMONIA Status: Acute Plan: COVID was >2 weeks ago. Does not need isolation. Will cont empiric Vit D and C. No abx needed. (6) Metabolic acidosis Code(s): E87.2 - ACIDOSIS Status: Acute Plan: From GI loss. Will give one dose of bicarb. Monitor Co2 levels. (7) DM type 2 (diabetes mellitus, type 2) Status: Chronic Qualifiers: Diabetes mellitus intermediate accountant insulin use: with snf use Diabetes mellitus complication status: without complication Qualified Code(s): E11.9 - Type 2 diabetes mellitus without complications; Z79.4 - [facility] (current) use of insulin Plan: Will hold metformin due to ongoing diarrhea. Resume insulin, cover with SSI. (8) Dementia Code(s): F03.90 - UNSPECIFIED DEMENTIA WITHOUT BEHAVIORAL DISTURBANCE Status: Chronic Qualifiers: Alzheimer's disease onset: unspecified onset Dementia behavioral disturbance: without behavioral disturbance Plan: Cont supportive care. (9) GERD (gastroesophageal reflux disease) Code(s): K21.9 - GASTRO-ESOPHAGEAL REFLUX DISEASE WITHOUT ESOPHAGITIS Status: Chronic Plan: Cont Pepcid. (10) HTN (hypertension) Code(s): I10 - ESSENTIAL (PRIMARY) HYPERTENSION Status: Chronic Qualifiers: Hypertension type: essential hypertension Qualified Code(s): I10 - Essential (primary) hypertension - Plan old records reviewed/req PPx: SCDs and Pepcid. CODE: FULL. Dispo: Cont current mgt.
[2020-08-04] MEDS ORDERED: Sodium Bicarb 50 MEQ/50 ML Abboject 8.4% SYRINGE IVP SCH (17:45)
[2020-08-04] MEDS: Cefepime 2 GM in Sodium Chloride 0.9% 100 ML IVPB SCH (17:57)
--- NOTE | 2020-08-04 17:59 | CON ---
DATE OF CONSULTATION: REASON FOR CONSULTATION: Elevated troponin. HISTORY OF PRESENT ILLNESS: Ms. Lane is an unfortunate 70-year-old woman, who recently was discharged from the hospital for being COVID positive. She recently presented with worsening dementia, increased shortness of breath, and diarrhea. Troponin was mildly elevated and felt to be indeterminate. Due to underlying dementia, it was difficult to obtain a history based on underlying dementia. Please refer to Dr. Brothers's full consultation for details. PHYSICAL EXAMINATION: VITAL SIGNS: Blood pressure 137/63, pulse 92, respiratory rate 20. GENERAL: The patient is a pleasant woman in no acute distress, appears stated age. HEAD, EYES, EARS, NOSE AND THROAT: Sclerae without icterus. Mouth: Moist mucous membranes, normal palate. NECK: No jugular venous distention. Carotid upstroke is brisk. No bruits bilaterally. LUNGS: Clear to auscultation. HEART: Regular rate and rhythm, normal S1 and S2. ABDOMEN: Soft, nontender, nondistended. EXTREMITIES: No edema. PERTINENT LABORATORY DATA: Hemoglobin 15.7, hematocrit 49.1. Peak troponin 0.3. IMPRESSION: 1. Elevated troponin. 2. Dementia. 3. Shortness of breath. 4. Leukemia. RECOMMENDATIONS: Ms. Lane currently has no symptoms suggesting angina. This is likely due to demand ischemia. Her CK-MB is negative. This may all be due to her previous hospitalization. At this point, would continue with conservative therapy and not proceed with a more aggressive approach. Otherwise, I have no further recommendations. Job ID: [id number]
[2020-08-04] MEDS ORDERED: Clotrimazole 1 % Cream 30 GM TUBE TOP PRN (18:14)
[2020-08-04] MEDS: Vancomycin HCl 25 MG/ML Oral PO SCH (18:40)
[2020-08-04] MEDS ORDERED: Insulin Glargine 20 UNITS in Pre-Filled Syringe 1 EACH SC SCH (21:00)
[2020-08-04] MEDS: HumaLOG 300 UNITS/3 ML VIAL SC SCH (21:03)
[2020-08-04] MEDS: Atorvastatin Calcium 40 MG TAB PO SCH (21:03)
--- NOTE | 2020-08-04 22:15 | CON ---
DATE OF CONSULTATION: HISTORY OF PRESENT ILLNESS: This patient was sent back from the assisted for apparent worsening condition. I cannot get any history from the patient and she definitely does not look any worse than when she left the hospital. She is currently on 3 L and saturating in the high 90s. PAST MEDICAL HISTORY: 1. Recent COVID-19 pneumonia. 2. Dementia. 3. Hyperlipidemia. 4. Stroke. 5. Asthma. 6. Seizure disorder. 7. Type 2 diabetes mellitus. PAST SURGICAL HISTORY: 1. Tubal ligation. 2. Cholecystectomy. SOCIAL HISTORY: [facility] resident. Does not smoke. ALLERGIES: PENICILLIN. CURRENT MEDICATIONS: Reviewed. See summary section on chart. Of note, I am told she has a C. diff infection, but the repeat antigen and toxin test today were negative. REVIEW OF SYSTEMS: Difficult to obtain, because the patient will not speak. PHYSICAL EXAMINATION: VITAL SIGNS: O2 saturation 96% on 3 L, pulse 90, blood pressure 116/77, respiratory rate 22, temperature 99.2. GENERAL: She is awake, alert, in no distress. HEENT: Unremarkable. NECK: No JVD. LUNGS: Fairly clear anteriorly. CARDIAC: S1 and S2. Regular. ABDOMEN: Soft. EXTREMITIES: No edema. LABORATORY DATA: White blood cell count 30, hematocrit of 49, platelet count 442 with 72% neutrophils, 15% bands. Lactate level was 7.1. Sodium 146, potassium 4, chloride 106, CO2 of 15, BUN 26, creatinine 1.2, glucose 153. IMAGING: Chest x-ray does not look any worse than when she was in the hospital last time. ASSESSMENT: Possible sepsis syndrome-patient presenting with lactic acidosis from a assisted after a recent COVID infection. RECOMMENDATION: Hydration and broad-spectrum IV antibiotics as you are doing. We will be happy to follow with you. Job ID: [id number]
--- NOTE | 2020-08-04 22:46 | CON ---
DATE OF CONSULTATION: 08/04/2020 INDICATION FOR CONSULTATION: Elevated troponins. HISTORY OF PRESENT ILLNESS: This is a 70-year-old female with a past medical history of insulin-dependent type 2 diabetes, hyperlipidemia, previous CVA 2 years ago, TIA last August, who presents to the ER with a chief complaint of vomiting, diarrhea, and hypoxia. The patient was recently in the hospital for COVID pneumonia and was discharged on 07/30/2020. In the ER, there was some concern for hypoxia and hypotension. The patient received vancomycin, cefepime, 2 L of normal saline bolus and was placed on oxygen. Reportedly at the halfway, the patient was hypoxic and improved with supplemental oxygen. With discussion with patient, the patient is oriented to person only at this time, baseline is A and O x3 with some independent ADLs. The patient is wheelchair-bound at baseline. Review of systems and HPI are limited due to the patient's mental status at this time. In the ER, the patient was found to have a troponin of 0.05 initially, trended up to 0.312, and then trended back down to 0.41. Initial CK-MB was 1.02. BNP was 6.5. Again, the patient reports that she does not know if she has chest pain or shortness of breath or any discomfort at this time. PAST MEDICAL HISTORY: Includes insulin-dependent type 2 diabetes, hyperlipidemia, seizure disorder, CVA, previous TIA, and recent COVID pneumonia. SOCIAL HISTORY: Per chart review, no history of alcohol, drug, or smoking use. The patient is currently at [facility]. FAMILY HISTORY: Unobtainable. ALLERGIES: PENICILLIN AND ASPIRIN. MEDICATIONS: 1. Atorvastatin 40 mg p.o. daily. 2. Clopidogrel 75 mg p.o. daily. 3. Metformin 1000 mg p.o. b.i.d. 4. Humalog 5 units subcu b.i.d. 5. Keppra 500 mg p.o. b.i.d. 6. Lantus 30 units daily. REVIEW OF SYSTEMS: Unable to obtain due to mental status. PHYSICAL EXAMINATION: VITAL SIGNS: At the time of exam, blood pressure 136/70, pulse 97, respirations 22, temperature 99.2, SpO2 of 97% on 3 L. GENERAL: Female, in mild distress, agitated with questions. HEENT: Appears to be normocephalic and atraumatic. Carotid pulses are present without any bruits. CHEST: The patient has diffuse rhonchi bilaterally. CARDIOVASCULAR: Regular rate and rhythm with no murmurs. ABDOMEN: Soft, nontender. Bowel sounds are present. EXTREMITIES: The patient has pulses in bilateral extremities with some trace edema in lower extremities. Radial pulses are present. NEUROLOGICAL: Difficult to assess due to mental status. However, the patient moves all extremities, will follow simple commands. SKIN: The patient has some breakdown of her skin on her lower right ankle area. Otherwise, seems dry and intact. LABORATORY DATA: Hemoglobin 15.7, hematocrit 49.1, WBC is 30.2, platelets 442. Lactic acid 7.1, potassium 4.0, BUN 26, creatinine 1.23, which appears above her baseline. Chest x-ray shows COVID-19 viral pneumonia bilaterally with improvement, some areas worse than others. EKG shows sinus tachycardia with no signs of ST elevation or depression. The patient had an echocardiogram in August showing EF of 50% to 55%. August of 2019, normal size of left ventricle, normal size right ventricle, grossly normal valvular structures. IMPRESSION: 1. This is a 70-year-old female, here for sepsis secondary to COVID pneumonia versus pneumonia, treated by primary team. 2. Elevated troponin, likely represents ume-HB-zubfjuy elevation myocardial infarction, type 2 secondary to hypertension and hypoxia. No intervention is required at this time. 3. Acute kidney injury, likely secondary to COVID pneumonia versus pneumonia. 4. Hypertension. We will continue medications after the patient is improved. 5. Hyperlipidemia. Continue atorvastatin. Job ID: [id number]
[2020-08-05] MEDS: Vancomycin HCl 25 MG/ML Oral PO SCH ×5 (00:01→23:29)
[2020-08-05] MEDS: Cefepime 2 GM in Sodium Chloride 0.9% 100 ML IVPB SCH ×2 (03:37→17:16)
[2020-08-05 04:16] LABS: ALT (SGPT) 15 U/L (8-55); AST (SGOT) 19 U/L (5-34); Albumin 2.7 g/dL (3.4-4.8); Alkaline Phosphatase 81 U/L (40-110); Anion Gap 15 mmol/L (10-20); BUN (Urea Nitrogen) 21 mg/dL (9.8-20.1); Bilirubin, Total 2.4 mg/dL (0.2-1.2); CRP (Inflammatory) 16.25 mg/dL (= or < 0.5); Calc. Creatinine Clearance 86 mL/min (70-130); Carbon Dioxide 19 mmol/L (23-31); Chloride 115 mmol/L (98-107); Estimated GFR-MDRD Greater than 90; Globulin 2.9 g/dL (2.4-3.5); Glucose 128 mg/dL (80-115); Magnesium 1.5 mg/dL (1.6-2.6); Potassium 3.2 mmol/L (3.5-5.1); Protein, Total 5.6 g/dL (6.0-8.3); Sodium 146 mmol/L (136-145)
[2020-08-05] MEDS: Sodium Chloride 0.9% 1,000 ML IV SCH (05:26)
[2020-08-05] MEDS ORDERED: Clopidogrel Bisulfate 75 MG TAB ONE (06:13)
--- NOTE | 2020-08-05 10:24 | PRG ---
DATE OF SERVICE: 08/05/2020 SUBJECTIVE: The patient does not give a lot of insight into how she is doing. She just answers "I don't know." OBJECTIVE: VITAL SIGNS: Temperature 97.9, pulse 92, blood pressure 114/79, and O2 saturation 97%. HEENT: Unremarkable. NECK: No JVD. LUNGS: Fairly clear. CARDIAC: S1 and S2. Regular. ABDOMEN: Soft. EXTREMITIES: No edema. LABORATORY DATA: Sodium 146, potassium 3.2, chloride 115, CO2 of 19, BUN 21, creatinine 0.5, and glucose 128. C-reactive protein 16.2. Micro data show no growth to date. ASSESSMENT: COVID-19, several weeks out of acute infection, now presenting with lactic acidosis. RECOMMENDATIONS: The patient is on steroids and broad-spectrum IV antibiotics. I would follow culture results as I suspect she probably has a secondary infection. From my standpoint, she is stable for transfer to the floor. Job ID: [id number]
[2020-08-05] MEDS: Vancomycin HCl 750 MG in Sodium Chloride 0.9% 250 ML 250 ML IVPB SCH (11:00)
[2020-08-05] MEDS: Enoxaparin Sodium 40 MG/0.4 ML SYRINGE SC SCH (11:00)
[2020-08-05] MEDS: Dexamethasone 4 mg/ml Vial SLOW IVP SCH (11:00)
[2020-08-05] MEDS: Insulin Glargine 30 UNITS in Pre-Filled Syringe 1 EACH SC SCH (11:01)
[2020-08-05] MEDS: Clopidogrel Bisulfate 75 MG TAB PO SCH (12:02)
[2020-08-05] MEDS: Famotidine 20 MG TAB PO SCH (12:02)
[2020-08-05] MEDS: Ascorbic Acid 500 mg Chewable Tablet PO SCH (12:03)
[2020-08-05] MEDS: Cholecalciferol 1,000 UNITS (25 MCG) TAB PO SCH (12:03)
[2020-08-05] MEDS: levETIRAcetam 500 MG TAB PO SCH ×2 (12:03→20:10)
[2020-08-05] MEDS: HumaLOG 300 UNITS/3 ML VIAL SC SCH ×2 (12:03→20:12)
[2020-08-05] MEDS: Floranex Packet PO SCH (12:19)
[2020-08-05 12:38] VITALS: BMI 25.0
--- NOTE | 2020-08-05 14:45 | PRG ---
DATE OF SERVICE: 08/05/2020 CONSULTATIONS ON THE CASE: 1. Dr. Darron Harrington, Cardiology. 2. Dr. Anders Saleh, Pulmonary Critical Care. 3. Dr. Kee, Infectious Disease. SUBJECTIVE: The patient seen and evaluated at bedside. The patient currently not in acute distress. Does have complaints of diarrhea which is slowly resolving, currently has a rectal tube in place. The patient does have dementia, is a shelter resident, though she is alert and awake. OBJECTIVE: VITAL SIGNS: Temperature 98.3 degrees Fahrenheit, heart rate of 99 per minute, respiratory rate of 25 per minute, blood pressure of 115/61 mmHg. Has an airway which is clear. HEENT: Atraumatic, normocephalic. CVS: S1, S2. Normal sinus rhythm. CHEST: Bilateral air entry present. No rhonchi. No wheeze. ABDOMEN: Soft, nontender. Bowel sounds are present. EXTREMITIES: No cyanosis. 1+ edema noted. NEUROLOGIC: The patient is alert, awake, not in acute distress. No motor deficits noted. HEME: No ecchymosis or petechiae. PSYCH: No depression noted. DIAGNOSTICS: WBC is 13.2, hemoglobin 15.7, hematocrit 49.1, platelets are 442. Sodium 146, potassium 3.2, chloride 115, carbon dioxide 19, BUN 21, creatinine 0.58. AST 19, ALT 15, alkaline phosphatase 81. LDH is 310. Urinalysis has been reviewed. No evidence of infection noted. ASSESSMENT: 1. Elevated troponins likely type 2 NSTEMI due to demand ischemia. No evidence of acute SC noted. Appreciate Cardiology recommendations, and at this point of time, conservative management has been advised. 2. Suspected sepsis, high likely thing the patient's elevated heart rate as well as leukocytosis are probably related to dehydration. I will continue to IV hydrate the patient and repeat CBC, CMP evaluations tomorrow in a.m. 3. Acute kidney injury, likely dehydration issues, prerenal in nature. 4. Diarrhea. No evidence of C diff noted. Rectal tube still in place. 5. Recent history of COVID-19 pneumonia treated. 6. Diabetes mellitus type 2. Resume insulin sliding scale protocol. 7. Dementia without any behavioral issues. 8. GERD. 9. Benign essential hypertension. PLAN: Discussed in detail of the diagnosis, treatment, and followup with the patient's covering nurse and care team. I will continue the patient on IV hydration and think this could likely be the reason for the patient's elevated lactic acid as well as leukocytosis. We will repeat CBC evaluation tomorrow in a.m. and continue to monitor CMP. Continue IV antibiotics. Await infectious disease evaluation. Per Cardiology Services, no further recommendations. Discharge plan basing on sepsis being ruled out and a proper hydration has been obtained. Job ID: [id number]
[2020-08-05] MEDS: Atorvastatin Calcium 40 MG TAB PO SCH (20:10)
[2020-08-06] MEDS: Vancomycin HCl 25 MG/ML Oral PO SCH (05:30)
[2020-08-06] MEDS: Cefepime 2 GM in Sodium Chloride 0.9% 100 ML IVPB SCH (05:30)
[2020-08-06 05:47] LABS: #Eosinphils 0.1 thou/uL (0.0-0.7); #Lymphocytes 2.1 thou/uL (1.20-3.40); #Neutrophils 9.7 thou/uL (1.40-6.50); %Eosinophils 0.4 % (0.0-10.0); %Lymphocytes 16.3 % (21.0-51.0); %Monocytes 7.9 % (0.0-10.0); %Neutrophils 75.4 % (42.0-75.0); Hemoglobin 10.6 g/dL (12.0-16.0); Mean Corpuscular HGB CONC 32.1 g/dL (32.0-36.0); Mean Corpuscular Hemoglobin 28.7 pg (27.0-31.0); Mean Corpuscular Volume 89.4 fL (78.0-98.0); Mean Platelet Volume 7.5 fL (7.4-10.4); Platelet Count 270 thou/uL (130-400); RBC Distribution Width 14.3 % (11.5-14.5); White Blood Cell (WBC) Count 12.9 thou/uL (4.8-10.8)
[2020-08-06 06:08] LABS: ALT (SGPT) 26 U/L (8-55); AST (SGOT) 30 U/L (5-34); Albumin 2.8 g/dL (3.4-4.8); Alkaline Phosphatase 95 U/L (40-110); Anion Gap 12 mmol/L (10-20); BUN (Urea Nitrogen) 10 mg/dL (9.8-20.1); Bilirubin, Total 1.8 mg/dL (0.2-1.2); Calc. Creatinine Clearance 93 mL/min (70-130); Calcium 8.1 mg/dL (7.8-10.44); Carbon Dioxide 26 mmol/L (23-31); Chloride 107 mmol/L (98-107); Estimated GFR-MDRD Greater than 90; Globulin 2.8 g/dL (2.4-3.5); Glucose 120 mg/dL (80-115); Potassium 3.1 mmol/L (3.5-5.1); Protein, Total 5.6 g/dL (6.0-8.3); Sodium 142 mmol/L (136-145)
[2020-08-06 07:46] LABS: Vancomycin, Trough 6.2 ug/mL
[2020-08-06] MEDS: Ascorbic Acid 500 mg Chewable Tablet PO SCH (08:31)
[2020-08-06] MEDS: Clopidogrel Bisulfate 75 MG TAB PO SCH (08:31)
[2020-08-06] MEDS: Cholecalciferol 1,000 UNITS (25 MCG) TAB PO SCH (08:31)
[2020-08-06] MEDS: Dexamethasone 4 mg/ml Vial SLOW IVP SCH (08:31)
[2020-08-06] MEDS: Insulin Glargine 30 UNITS in Pre-Filled Syringe 1 EACH SC SCH (08:31)
[2020-08-06] MEDS: levETIRAcetam 500 MG TAB PO SCH (08:32)
[2020-08-06] MEDS: Floranex Packet PO SCH (08:32)
[2020-08-06] MEDS: Famotidine 20 MG TAB PO SCH (08:32)
[2020-08-06] MEDS: Enoxaparin Sodium 40 MG/0.4 ML SYRINGE SC SCH (08:32)
[2020-08-06] MEDS: HumaLOG 300 UNITS/3 ML VIAL SC SCH (10:22)
--- NOTE | 2020-08-06 11:50 | PRG ---
DATE OF SERVICE: 08/06/2020 SUBJECTIVE: The patient is doing reasonably well. She is conversant today. OBJECTIVE: VITAL SIGNS: Temperature 98.3, pulse 82, blood pressure 137/80, and O2 saturation 97%. HEENT: Clear. NECK: No JVD. LUNGS: Clear. CARDIAC: S1, S2. Regular. ABDOMEN: Soft. EXTREMITIES: No edema. LABORATORY DATA: White blood cell count 12.9, hematocrit 33, and platelet count 270. Sodium 142, potassium 3.1, BUN 10, creatinine 0.5, and glucose 120. Cultures show no growth to date. ASSESSMENT: 1. Improved sepsis syndrome. 2. Status post COVID-19 pneumonia. PLAN: The patient is stable for transfer to the medical floor. Continue antibiotics. Finish out 7 days treatment. No further recommendations at this time. We will sign off. Job ID: [id number]
[2020-08-06] MEDS: Vancomycin HCl 750 MG in Sodium Chloride 0.9% 250 ML 250 ML IVPB SCH (12:24)
[2020-08-06 12:41] VITALS: TEMP 98.6
[2020-08-06] MEDS ORDERED: Vancomycin HCl 750 MG in Sodium Chloride 0.9% 250 ML 250 ML IVPB SCH (20:00)
--- NOTE | 2020-08-07 01:33 | DIS ---
DATE OF ADMISSION: 08/04/2020 DATE OF DISCHARGE: 08/06/2020 CONSULTATIONS ON THE CASE: 1. Dr. Darron Harrington. 2. Dr. Delfino Mcnamara. 3. Dr. Darron Kee, Infectious Disease. DISCHARGING DIAGNOSES: 1. Type 2 [id number] myocardial infarction due to demand ischemia. Per Cardiology Services, no intervention advised at this point of time, except for continuation of the patient's home medications. 2. Suspected sepsis has been ruled out. 3. Severe dehydration, likely causing the patient's leukocytosis along with elevated lactic acid levels with appropriate and adequate hydration. Everything resolved to normal levels. 4. Diarrhea. This was further evaluated for Clostridium difficile, which was negative including other bacterial pathogens, which were negative. 5. Recent history of COVID-19 pneumonia, treated. 6. Diabetes mellitus, type 2. 7. Dementia without any behavioral issues. 8. Gastroesophageal reflux disease. 9. Benign essential hypertension. 10. Coagulase-negative Staphylococcus, which is a contaminant. No evidence of bacteremia noted. Repeat blood cultures negative. MEDICATIONS ON DISCHARGE: 1. Atorvastatin 40 mg daily. 2. Vitamin D 1000 units daily. 3. Plavix 75 mg daily. 4. Decadron to continue. 5. Famotidine 20 mg daily. 6. Keppra 500 mg b.i.d. 7. Guaifenesin cough medication. HOSPITAL COURSE: This is a 70-year-old female, who is a long-term resident, was admitted to the hospitalist service secondary to severe dehydration with a likelihood of sepsis secondary to elevated white blood cell count to 30,000. At this point of time, because of elevated troponins, Cardiology Services were consulted, who advised demand ischemia and ruled out any evidence of acute myocardial infarction and advised to continue current antiplatelet therapy with statins. The patient remained chest pain free. No evidence of angina was noted. The patient subsequently was also evaluated for diarrhea, where C diff was negative including any other stool pathogens. Over the course of hospitalization, diarrhea resolved, the patient's white blood cell count completely resolved to 12 overnight with significant hydration. The patient's sepsis was ruled out. All questions and concerns were addressed in regard to care team and discharge planning. I reviewed with Case Management and has discharged the patient back to the long-term. The patient is to follow up with her primary care physician in 2 to 3 weeks on discharge. DISPOSITION: Discharged to long-term. PHYSICAL EXAMINATION: CVS: S1, S2. CHEST: Bilateral air entry present. ABDOMEN: Soft. EXTREMITIES: No cyanosis. ALLERGIES: PENICILLINS AND ASPIRIN. ACTIVITY: As tolerated with fall precautions. DIET: Cardiac diet and 1800-kilocalorie ADA diet. DISCHARGE PLAN: The patient has been advised and educated about the diagnosis, treatment, and followup. The patient has been advised about followup care with her primary care physician in 3 weeks. The whole discharge process including discharge coordination took me more than 35 minute. Job ID: [id number]
== END 2020-08-06 15:50 | DRG 640 ==
LOC: ERS 01:51 → ERHOLD 03:56 → IMCU/EMU 15:05
PROVIDERS: ADMIT Internal Medicine; ATTEND Internal Medicine
DX: E86.0 Dehydration (principal); I21.A1 Myocardial infarction type 2; N17.9 Acute kidney failure, unspecified; C95.90 Leukemia, unspecified not having achieved remission; Z86.19 Personal history of other infectious and parasitic diseases; E87.2 Acidosis; G40.909 Epilepsy, unspecified, not intractable, without status epilepticus; E11.9 Type 2 diabetes mellitus without complications; K21.9 Gastro-esophageal reflux disease without esophagitis; E78.5 Hyperlipidemia, unspecified; E78.00 Pure hypercholesterolemia, unspecified; I10 Essential (primary) hypertension; J44.9 Chronic obstructive pulmonary disease, unspecified; G30.9 Alzheimer's disease, unspecified; F02.80 Dementia in other diseases classified elsewhere, unspecified severity, without behavioral disturbance, psychotic disturbance, mood disturbance, and anxiety; F41.9 Anxiety disorder, unspecified; D72.829 Elevated white blood cell count, unspecified; F32.9 Major depressive disorder, single episode, unspecified; Z90.49 Acquired absence of other specified parts of digestive tract; Z98.51 Tubal ligation status; Z88.0 Allergy status to penicillin; Z88.6 Allergy status to analgesic agent; Z88.8 Allergy status to other drugs, medicaments and biological substances; Z79.899 Other long term (current) drug therapy; Z79.4 Long term (current) use of insulin; Z86.73 Personal history of transient ischemic attack (TIA), and cerebral infarction without residual deficits
CPT/HCPCS: 36415; 36416; 71045; 80053; 80202; 81003; 81015; 82274; 82553; 82728; 83605; 83615; 83630; 83735; 83880; 84145; 84484; 85025; 85379; 86140; 87040; 87045; 87046; 87149; 87324; 87427; 87449; 93005; J0692; J1100; J1650; J1815; J3370; J3490; J7050

== ENCOUNTER 2023-05-21 12:07 | Emergency (ER) | payer MEDICARE, OTHER | END 2023-05-21 13:36 | disposition home or self-care (01) | LOC: ERS 12:07 | DX: Z76.0 Encounter for issue of repeat prescription (principal); E11.9 Type 2 diabetes mellitus without complications; K21.9 Gastro-esophageal reflux disease without esophagitis; E78.00 Pure hypercholesterolemia, unspecified; I10 Essential (primary) hypertension; J44.9 Chronic obstructive pulmonary disease, unspecified; Z79.899 Other long term (current) drug therapy; Z79.4 Long term (current) use of insulin | CPT/HCPCS: 99281 ==

== ENCOUNTER 2023-07-13 11:48 | Emergency (ER) | payer MEDICARE, OTHER | END 2023-07-13 13:15 | disposition home or self-care (01) | LOC: ERS 11:48 | DX: Z76.0 Encounter for issue of repeat prescription (principal) | CPT/HCPCS: 99282 ==

== ENCOUNTER 2023-08-13 16:42 | Emergency (ER) | payer MEDICARE, OTHER ==
[2023-08-13 17:02] LABS: #Basophils 0.1 thou/uL (0.0-0.2); #Eosinphils 0.2 thou/uL (0.0-0.7); #Monocytes 1.8 thou/uL (0.11-0.59); #Neutrophils 10.4 thou/uL (1.40-6.50); %Basophils 0.5 % (0.0-1.0); %Eosinophils 0.7 % (0.0-10.0); %Lymphocytes 39.3 % (21.0-51.0); %Monocytes 8.5 % (0.0-10.0); %Neutrophils 48.6 % (42.0-75.0); Hematocrit 50.8 % (36.0-47.0); Hemoglobin 15.4 g/dL (12.0-16.0); Mean Corpuscular HGB CONC 30.3 g/dL (32.0-36.0); Mean Corpuscular Hemoglobin 27.7 pg (27.0-31.0); Mean Corpuscular Volume 91.5 fl (78.0-98.0); Mean Platelet Volume 10.2 fL (7.4-10.4); Platelet Count 385 10x3/uL (130-400); Red Blood Cell (RBC) Count 5.55 mill/uL (4.20-5.40); White Blood Cell (WBC) Count 21.4 10x3/uL (4.8-10.8)
[2023-08-13] MEDS ORDERED: levETIRAcetam 500 MG/5 ML VIAL ONE (17:02)
[2023-08-13 17:27] LABS: ALT (SGPT) 18 U/L (8-55); AST (SGOT) 15 U/L (5-34); Alkaline Phosphatase 95 U/L (40-110); Anion Gap 25 mmol/L (10-20); BUN (Urea Nitrogen) 14 mg/dL (9.8-20.1); Bilirubin, Total 2.6 mg/dL (0.2-1.2); Calc. Creatinine Clearance 0 mL/min (70-130); Calcium 9.5 mg/dL (7.8-10.44); Carbon Dioxide 13 mmol/L (23-31); Chloride 106 mmol/L (98-107); Estimated GFR 71; Glucose 82 mg/dL (83-110); Potassium 2.9 mmol/L (3.5-5.1); Sodium 141 mmol/L (136-145)
[2023-08-13 17:28] LABS: Troponin I Less than 0.010 ng/mL (< 0.028)
[2023-08-13] MEDS ORDERED: Potassium Chloride 20 MEQ TAB ONE (17:45)
[2023-08-13 19:59] LABS: Bacteria/HPF None Seen HPF (None Seen); Bilirubin Negative (Negative); Blood, Urine Negative (Negative); CAUTI Indications for Culture Alt mental st,lethar; Clarity Clear (Clear); Glucose, Urine (Dipstick) Normal (Negative); Ketone, Urine Negative (Negative); Leukocyte Negative Leu/uL (Negative); Nitrite Negative (Negative); Protein, Urine (Dipstick) 30 mg/dL (Neg-Trace); RBC/HPF 0-3 HPF (0-3); Specific Gravity, Urine 1.019 (1.002-1.036); Squamous Epithelial 0-3 HPF (0-3); Urobilinogen Normal mg/dL (Less than 2); WBC/HPF 0-3 HPF (0-3)
[2023-08-13 20:01] LABS: Urine Culture Reflex No No
== END 2023-08-13 20:34 | disposition home or self-care (01) ==
LOC: ERS 16:42
DX: R56.9 Unspecified convulsions (principal); E87.6 Hypokalemia
CPT/HCPCS: 51701; 70450; 71045; 80053; 81001; 82962; 83605; 84484; 85025; 93005; 96361; 96365; 99285; J1953; 36415; 36416

== ENCOUNTER 2023-11-16 | Observation (INO) | payer MEDICARE | END 2023-11-17 18:05 | disposition home or self-care (01) | PROVIDERS: ADMIT Student in an Organized Health Care Education/Training Program | DX: I10 Essential (primary) hypertension (principal); E87.5 Hyperkalemia; E87.1 Hypo-osmolality and hyponatremia; E11.65 Type 2 diabetes mellitus with hyperglycemia; F03.90 Unspecified dementia, unspecified severity, without behavioral disturbance, psychotic disturbance, mood disturbance, and anxiety; R94.31 Abnormal electrocardiogram [ECG] [EKG]; E78.00 Pure hypercholesterolemia, unspecified; J44.9 Chronic obstructive pulmonary disease, unspecified; I25.10 Atherosclerotic heart disease of native coronary artery without angina pectoris; G40.909 Epilepsy, unspecified, not intractable, without status epilepticus; Z79.4 Long term (current) use of insulin; Z79.84 Long term (current) use of oral hypoglycemic drugs; Z79.899 Other long term (current) drug therapy; Z88.0 Allergy status to penicillin; Z88.6 Allergy status to analgesic agent; Z86.73 Personal history of transient ischemic attack (TIA), and cerebral infarction without residual deficits ==